=== PATIENT | male | born 1935 | race Caucasian/White ===

== ENCOUNTER 2016-09-03 16:59 | Inpatient (IN) | payer MEDICARE ==
[~2016-09-03] VITALS: Ht 167.6 cm; Wt 59.0 kg
--- NOTE | 2016-09-03 17:30 | EKG ---
[address] [address] Test Date: 2016-09-03 Test Time: 17:11:59 Pat Name: CARMEN MATTHEWS Department: Room: Gender: M Certified Coder: LUIS : 1935 Requested By: CRISTY HEDRICK Order Number: [id number] Reading MD: Measurements Intervals [place] Rate: 62 P: [place]: QRS: 45 QRSD: 86 T: 46 QT: 418 QTc: 427 Interpretive Statements IRREGULAR RHYTHM, NO P-WAVE FOUND QRS(T) CONTOUR ABNORMALITY CONSIDER INFERIOR MYOCARDIAL DAMAGE POSSIBLY ABNORMAL ECG RI6.01 Unconfirmed report No previous ECG available for comparison
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
[2016-09-03 17:37] LABS: AMORPHOUS SEDIMENT,UR PRESENT /HPF; BACTERIA,URINE MOD /HPF (0-FEW); BILIRUBIN,URINE NEG (NEG); CLARITY,URINE CLOUDY; COLOR,URINE YELLOW; GLUCOSE,URINE NEG (NEG); NITRITE,URINE POS (NEG); RBC,URINE OCC /HPF (0-2); SQUAMOUS EPITHELIAL CELL,UR OCC /LPF; UROBILINOGEN,URINE 2 mg/dL (0.2 mg/dL)
[2016-09-03 17:46] LABS: BASO # 0.1 x10^3/uL (0.0-0.2); BASO % 1 % (0-3); EOS # 0.9 x10^3/uL (0.0-0.7); EOS % 16 % (0-3); HEMATOCRIT 38.1 % (39.0-53.0); HEMOGLOBIN 12.4 g/dL (13.0-17.5); LYMPH # 1.5 x10^3/uL (1.0-4.8); LYMPH % 26 % (24-48); MEAN CORPUSCULAR HEMOGLOBIN 30 pg (25-35); MEAN CORPUSCULAR HGB CONC 33 g/dL (31-37); MEAN CORPUSCULAR VOLUME 93 fL (79-100); MONO # 0.4 x10^3/uL (0.0-1.1); MONO % 6 % (0-9); NEUT # 2.9 x10^3uL (1.8-7.7); NEUT % 51 % (31-73); PLATELET COUNT 96 x10^3/uL (140-400); RED BLOOD COUNT 4.09 x10^6/uL (4.30-5.70); RED CELL DISTRIBUTION WIDTH 15.4 % (11.5-14.5); WHITE BLOOD COUNT 5.8 x10^3/uL (4.0-11.0)
[2016-09-03 17:59] LABS: ALBUMIN 3.1 g/dL (3.4-5.0); ALBUMIN/GLOBULIN RATIO 0.7 (1.0-1.7); CALCIUM 9.2 mg/dL (8.5-10.1); CREATININE 1.3 mg/dL (0.7-1.3); GFR 53.3; MAGNESIUM 1.5 mg/dL (1.8-2.4); POTASSIUM 3.8 mmol/L (3.5-5.1); TOTAL BILIRUBIN 0.4 mg/dL (0.2-1.0); TOTAL PROTEIN 7.4 g/dL (6.4-8.2)
[2016-09-03] MEDS ORDERED: ACETAMINOPHEN 325 MG TABLET PO PRN ×2 (18:30→20:15)
[2016-09-03] MEDS ORDERED: MAGNESIUM CHLORIDE ER 64 MG TABLET.ER PO ONE (18:30)
[2016-09-03] MEDS ORDERED: CIPROFLOXACIN HCL 500 MG TABLET PO ONE (18:45)
[2016-09-03] MEDS ORDERED: POLY119P4 PO (19:23)
[2016-09-03] MEDS ORDERED: MULT1TAB52 PO (19:26)
[2016-09-03] MEDS ORDERED: CHOL10003 PO (19:26)
[2016-09-03] MEDS ORDERED: MEMA10TA PO (19:27)
[2016-09-03] MEDS ORDERED: QUET50TA5 PO (19:27)
[2016-09-03] MEDS ORDERED: LORA0.5T PO (19:28)
[2016-09-03] MEDS ORDERED: RANI150T2 PO (19:28)
[2016-09-03] MEDS ORDERED: DONE10TA34 PO (19:30)
[2016-09-03] MEDS ORDERED: VENL37.56 PO (19:30)
[2016-09-03] MEDS ORDERED: LEVO25TA4 PO (19:30)
[2016-09-03] MEDS ORDERED: ACET325T9 PO (19:31)
[2016-09-03] MEDS ORDERED: MAG HYDROX/AL HYDROX/SIMETH 30 ML ORAL.SUSP PO PRN (19:45)
[2016-09-03] MEDS ORDERED: METHYL SALICYLATE/MENTHOL TOPICAL OINTMENT 29GM TUBE. TP PRN (19:45)
[2016-09-03] MEDS ORDERED: MAGNESIUM HYDROXIDE 2,400 MG/30 ML ORAL.SUSP. PO PRN (19:45)
[2016-09-03 19:54] VITALS: BP 136/77
[2016-09-03] MEDS: FAMOTIDINE 20 MG TABLET PO SCH (20:32)
[2016-09-03] MEDS: MEMANTINE 10 MG TABLET. PO SCH (20:32)
[2016-09-03] MEDS: LORAZEPAM 0.5 MG TABLET PO SCH (20:33)
[2016-09-03] MEDS: QUEtiapine 50 MG TABLET. PO SCH (20:33)
--- NOTE | 2016-09-03 20:50 | PDOC ---
Exam West Demential Exam: West Note: Please also refer to the separate dictated note~for this date of service dictated separately.~Patient seen individually. Discussed the patient with Nursing staff reviewed the chart.~Reviewed interim history and current functioning. Reviewed vital signs,~Labs/ Radiology~and current medications noted below. Continue current treatment with the changes noted in the dictated addendum note Assessment: Vital Signs: Vital Signs Date Time Temp Pulse Resp B/P Pulse Ox O2 Delivery O2 Flow Rate FiO2 09/03/16 19:54 98.0 61 16 136/77 98 09/03/16 18:37 Room Air Labs: Laboratory Tests Test 09/03/16 17:17 09/03/16 17:26 Urine Collection Type Unknown Urine Color Yellow Urine Clarity Cloudy Urine pH 7.0 Urine Specific [place] 1.020 Urine Protein 30 mg/dl (NEG-TRACE) Urine Glucose (UA) Negmg/dL (NEG) Urine Ketones (Stick) Negmg/dL (NEG) Urine Blood Small (NEG) Urine Nitrite Pos (NEG) Urine Bilirubin Neg (NEG) Urine Urobilinogen Dipstick 2mg/dL (0.2 mg/dL) Urine Leukocyte Esterase Large (NEG) Urine RBC Occ/HPF (0-2) Urine WBC 11-20/HPF (0-4) Urine Squamous Epithelial Cells Occ/LPF Urine Amorphous Sediment Present/HPF Urine Bacteria Mod/HPF (0-FEW) Urine Mucus Slight/LPF White Blood Count 5.8x10^3/uL (4.0-11.0) Red Blood Count 4.09x10^6/uL (4.30-5.70) L Hemoglobin 12.4g/dL (13.0-17.5) L Hematocrit 38.1% (39.0-53.0) L Mean Corpuscular Volume 93fL (79-100) Mean Corpuscular Hemoglobin 30pg (25-35) Mean Corpuscular Hemoglobin Concent 33g/dL (31-37) Red Cell Distribution Width 15.4% (11.5-14.5) H Platelet Count 96x10^3/uL (140-400) L Neutrophils (%) (Auto) 51% (31-73) Lymphocytes (%) (Auto) 26% (24-48) Monocytes (%) (Auto) 6% (0-9) Eosinophils (%) (Auto) 16% (0-3) H Basophils (%) (Auto) 1% (0-3) Neutrophils # (Auto) 2.9x10^3uL (1.8-7.7) Lymphocytes # (Auto) 1.5x10^3/uL (1.0-4.8) Monocytes # (Auto) 0.4x10^3/uL (0.0-1.1) Eosinophils # (Auto) 0.9x10^3/uL (0.0-0.7) H Basophils # (Auto) 0.1x10^3/uL (0.0-0.2) Sodium Level 145mmol/L (136-145) Potassium Level 3.8mmol/L (3.5-5.1) Chloride Level 107mmol/L (98-107) Carbon Dioxide Level 30mmol/L (21-32) Anion Gap 8 (6-14) Blood Urea Nitrogen 18mg/dL (8-26) Creatinine 1.3mg/dL (0.7-1.3) Estimated GFR (Cockcroft-Gault) 53.3 BUN/Creatinine Ratio 14 (6-20) Glucose Level 90mg/dL (70-99) Calcium Level 9.2mg/dL (8.5-10.1) Magnesium Level 1.5mg/dL (1.8-2.4) L Total Bilirubin 0.4mg/dL (0.2-1.0) Aspartate Amino Transferase (AST) 27U/L (15-37) Alanine Aminotransferase (ALT) 31U/L (16-63) Alkaline Phosphatase 157U/L (46-116) H Total Protein 7.4g/dL (6.4-8.2) Albumin 3.1g/dL (3.4-5.0) L Albumin/Globulin Ratio 0.7 (1.0-1.7) L Current Medications: Meds: Current Medications Ciprofloxacin (Cipro) 500 mg BID66 PO ; Start 09/04/16 at 06:00 Ciprofloxacin (Cipro) 500 mg 1X ONCE PO Last administered on 09/03/16 18:38; Start 09/03/16 at 18:45; Stop 09/03/16 at 18:46; Status DC Magnesium Chloride (Mag Delay) 64 mg 1X ONCE PO Last administered on 18:38; Start 09/03/16 at 18:30; Stop 09/03/16 at 18:31; Status DC Acetaminophen (Tylenol) 650 mg PRN Q6HRS PRN PO PAIN / TEMP; Start 09/03/16 at 18:30 Multi-Ingredient Ointment (Analgesic Needles) 1 rosanna PRN QID PRN TP MUSCLE PAIN; Start 09/03/16 at 19:45 Al Hydroxide/Mg Hydroxide (Mylanta Plus Xs) 15 ml PRN AFTMEALHC PRN PO DYSPEPSIA; Start 09/03/16 at 19:45 Magnesium Hydroxide (Milk Of Magnesia) 2,400 mg PRN QHS PRN PO CONSTIPATION; Start 09/03/16 at 19:45 Donepezil HCl (Aricept) 10 mg DAILY PO ; Start 09/04/16 at 09:00 Lorazepam (Ativan) 0.5 mg QID PO Last administered on 09/03/16 20:33; Start at 21:00 Memantine (Namenda) 10 mg BID PO Last administered on 09/03/16 20:32; Start at 21:00 Quetiapine Fumarate (SEROquel) 50 mg BID PO Last administered on 09/03/16 20: 33; Start 09/03/16 at 21:00 Venlafaxine HCl (Effexor) 37.5 mg DAILY PO ; Start 09/04/16 at 09:00 Acetaminophen (Tylenol) 650 mg PRN Q4HRS PRN PO PAIN / TEMP; Start 09/03/16 at 20:15 Vitamin D (Vitamin D3) 2,000 unit DAILY PO ; Start 09/04/16 at 09:00 Levothyroxine Sodium (Synthroid) 25 mcg DAILY06 PO ; Start 09/04/16 at 06:00 Polyethylene Glycol (miraLAX) 17 gm PRN DAILY PRN PO CONSTIPATION; Start at 21:00 Multivitamins/ Calcium (Thera-M Plus) 1 tab DAILY PO ; Start 09/04/16 at 09:00 Famotidine (Pepcid) 20 mg Q24H PO Last administered on 09/03/16 20:32; Start 09/03/16 at 21:00 Magnesium Chloride (Mag Delay) 64 mg DAILY PO ; Start 09/04/16 at 09:00 Active Scripts Active Reported Tylenol (Acetaminophen) 325 Mg Tablet 650 Mg PO PRN Q4HRS PRN Levothyroxine Sodium 25 Mcg Tablet 25 Mcg PO DAILY06 Venlafaxine Hcl 37.5 Mg Tablet 37.5 Mg PO DAILY Aricept (Donepezil Hcl) 10 Mg Tablet 10 Mg PO DAILY Lorazepam 0.5 Mg Tablet 0.5 Mg PO QID Ranitidine Hcl 150 Mg Tablet 150 Mg PO BID Seroquel (Quetiapine Fumarate) 50 Mg Tablet 50 Mg PO BID Namenda (Memantine Hcl) 10 Mg Tablet 10 Mg PO BID Vitamin D3 (Cholecalciferol (Vitamin D3)) 1,000 Unit Tablet 1,000 Unit PO DAILY Multivitamins (Multivitamin) 1 Each Tablet 1 Tab PO DAILY Miralax (Polyethylene Glycol 3350) 119 Gm Powder 17 Gm PO PRN DAILY PRN Diagnosis: Problems: (1) Dementia with behavioral disturbance (2) Medical clearance for psychiatric admission PRISCILA GUEVARA MD Sep 03, 2016 20:49
[2016-09-03] MEDS ORDERED: POLYETHYLENE GLYCOL 3350 17 GM PACKET. PO PRN (21:00)
[2016-09-04] MEDS: LEVOTHYROXINE 25 MCG TABLET. PO SCH (05:14)
[2016-09-04] MEDS: CIPROFLOXACIN HCL 500 MG TABLET PO SCH ×2 (05:14→16:49)
[2016-09-04 06:07] VITALS: BP 113/76
[2016-09-04] MEDS: MEMANTINE 10 MG TABLET. PO SCH ×2 (08:09→19:42)
[2016-09-04] MEDS: QUEtiapine 50 MG TABLET. PO SCH ×2 (08:09→19:42)
[2016-09-04] MEDS: MULTIVITAMIN with MINERAL TABLET. PO SCH (08:11)
[2016-09-04] MEDS: DONEPEZIL HCL 10 MG TABLET PO SCH (08:11)
[2016-09-04] MEDS: CHOLECALCIFEROL (VITAMIN D3) 1,000 UNIT TABLET PO SCH (08:11)
[2016-09-04] MEDS: LORAZEPAM 0.5 MG TABLET PO SCH ×4 (08:11→19:42)
[2016-09-04] MEDS: MAGNESIUM CHLORIDE ER 64 MG TABLET.ER PO SCH (08:14)
[2016-09-04] MEDS: VENLAFAXINE 37.5 MG TABLET. PO SCH (08:14)
[2016-09-04 10:59] LABS: IRON,SERUM 56 ug/dL (65-175)
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
[2016-09-04 15:10] LABS: T3 TOTAL 79 ng/dL (71-180); THYROXINE 4.5 ug/dL (4.5-12.0)
[2016-09-04 15:59] VITALS: BP 127/82
[2016-09-04 16:14] VITALS: BP 100/48
[2016-09-04] MEDS: FAMOTIDINE 20 MG TABLET PO SCH (19:42)
[2016-09-04 21:07] LABS: HEMOGLOBIN A1C 4.7 % (4.8-5.6)
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
--- NOTE | 2016-09-04 22:30 | PDOC ---
Exam West Demential Exam: West Note: Please also refer to the separate dictated note~for this date of service dictated separately.~Patient seen individually. Discussed the patient with Nursing staff reviewed the chart.~Reviewed interim history and current functioning. Reviewed vital signs,~Labs/ Radiology~and current medications noted below. Continue current treatment with the changes noted in the dictated addendum note Assessment: Vital Signs: Vital Signs Date Time Temp Pulse Resp B/P Pulse Ox O2 Delivery O2 Flow Rate FiO2 09/04/16 16:14 98.5 67 18 100/48 96 09/03/16 18:37 Room Air I&O Intake and Output 09/04/16 07:00 Intake Total 120 ml Balance 120 ml Intake Oral 120 ml Current Medications: Meds: Current Medications Ciprofloxacin (Cipro) 500 mg BID66 PO Last administered on 09/04/16 16:49; Start 09/04/16 at 06:00 Ciprofloxacin (Cipro) 500 mg 1X ONCE PO Last administered on 09/03/16 18:38; Start 09/03/16 at 18:45; Stop 09/03/16 at 18:46; Status DC Magnesium Chloride (Mag Delay) 64 mg 1X ONCE PO Last administered on 18:38; Start 09/03/16 at 18:30; Stop 09/03/16 at 18:31; Status DC Acetaminophen (Tylenol) 650 mg PRN Q6HRS PRN PO PAIN / TEMP; Start 09/03/16 at 18:30; Stop 09/04/16 at 07:06; Status DC Multi-Ingredient Ointment (Analgesic [place]) 1 rosanna PRN QID PRN TP MUSCLE PAIN; Start 09/03/16 at 19:45 Al Hydroxide/Mg Hydroxide (Mylanta Plus Xs) 15 ml PRN AFTMEALHC PRN PO DYSPEPSIA; Start 09/03/16 at 19:45 Magnesium Hydroxide (Milk Of Magnesia) 2,400 mg PRN QHS PRN PO CONSTIPATION; Start 09/03/16 at 19:45 Donepezil HCl (Aricept) 10 mg DAILY PO Last administered on 09/04/16 08:11; Start 09/04/16 at 09:00 Lorazepam (Ativan) 0.5 mg QID PO Last administered on 09/04/16 19:42; Start at 21:00 Memantine (Namenda) 10 mg BID PO Last administered on 09/04/16 19:42; Start at 21:00 Quetiapine Fumarate (SEROquel) 50 mg BID PO Last administered on 09/04/16 19: 42; Start 09/03/16 at 21:00 Venlafaxine HCl (Effexor) 37.5 mg DAILY PO Last administered on 09/04/16 08:14 ; Start 09/04/16 at 09:00 Acetaminophen (Tylenol) 650 mg PRN Q4HRS PRN PO PAIN / TEMP; Start 09/03/16 at 20:15 Vitamin D (Vitamin D3) 2,000 unit DAILY PO Last administered on 09/04/16 08:11 ; Start 09/04/16 at 09:00 Levothyroxine Sodium (Synthroid) 25 mcg DAILY06 PO Last administered on 05:14; Start 09/04/16 at 06:00 Polyethylene Glycol (miraLAX) 17 gm PRN DAILY PRN PO CONSTIPATION; Start at 21:00 Multivitamins/ Calcium (Thera-M Plus) 1 tab DAILY PO Last administered on 08:11; Start 09/04/16 at 09:00 Famotidine (Pepcid) 20 mg Q24H PO Last administered on 09/04/16 19:42; Start 09/03/16 at 21:00 Magnesium Chloride (Mag Delay) 64 mg DAILY PO Last administered on 09/04/16 08 :14; Start 09/04/16 at 09:00 Active Scripts Active Reported Tylenol (Acetaminophen) 325 Mg Tablet 650 Mg PO PRN Q4HRS PRN Levothyroxine Sodium 25 Mcg Tablet 25 Mcg PO DAILY06 Venlafaxine Hcl 37.5 Mg Tablet 37.5 Mg PO DAILY Aricept (Donepezil Hcl) 10 Mg Tablet 10 Mg PO DAILY Lorazepam 0.5 Mg Tablet 0.5 Mg PO QID Ranitidine Hcl 150 Mg Tablet 150 Mg PO BID Seroquel (Quetiapine Fumarate) 50 Mg Tablet 50 Mg PO BID Namenda (Memantine Hcl) 10 Mg Tablet 10 Mg PO BID Vitamin D3 (Cholecalciferol (Vitamin D3)) 1,000 Unit Tablet 1,000 Unit PO DAILY Multivitamins (Multivitamin) 1 Each Tablet 1 Tab PO DAILY Miralax (Polyethylene Glycol 3350) 119 Gm Powder 17 Gm PO PRN DAILY PRN Diagnosis: Problems: (1) Dementia with behavioral disturbance PRISCILA GUEVARA MD Sep 04, 2016 22:30
[2016-09-05 05:57] VITALS: BP 117/70
[2016-09-05] MEDS: LEVOTHYROXINE 25 MCG TABLET. PO SCH (05:58)
[2016-09-05] MEDS: CIPROFLOXACIN HCL 500 MG TABLET PO SCH (05:58)
[2016-09-05] MEDS: VENLAFAXINE 37.5 MG TABLET. PO SCH (07:40)
[2016-09-05] MEDS: QUEtiapine 50 MG TABLET. PO SCH ×2 (07:40→19:20)
[2016-09-05] MEDS: MAGNESIUM CHLORIDE ER 64 MG TABLET.ER PO SCH (07:40)
[2016-09-05] MEDS: DONEPEZIL HCL 10 MG TABLET PO SCH (07:40)
[2016-09-05] MEDS: CHOLECALCIFEROL (VITAMIN D3) 1,000 UNIT TABLET PO SCH (07:40)
[2016-09-05] MEDS: MULTIVITAMIN with MINERAL TABLET. PO SCH (07:40)
[2016-09-05] MEDS: MEMANTINE 10 MG TABLET. PO SCH ×2 (07:40→19:20)
[2016-09-05] MEDS: LORAZEPAM 0.5 MG TABLET PO SCH ×4 (07:42→19:20)
[2016-09-05 15:50] VITALS: BP 98/64
[2016-09-05] MEDS: FAMOTIDINE 20 MG TABLET PO SCH (19:21)
[2016-09-05] MEDS: CEPHALEXIN 500 MG CAPSULE PO SCH (20:23)
--- NOTE | 2016-09-05 20:50 | PDOC ---
Exam West Demential Exam: West Note: Please also refer to the separate dictated note~for this date of service dictated separately.~Patient seen individually. Discussed the patient with Nursing staff reviewed the chart.~Reviewed interim history and current functioning. Reviewed vital signs,~Labs/ Radiology~and current medications noted below. Continue current treatment with the changes noted in the dictated addendum note Assessment: Vital Signs: Vital Signs Date Time Temp Pulse Resp B/P Pulse Ox O2 Delivery O2 Flow Rate FiO2 09/05/16 15:50 98.1 78 18 98/64 96 09/03/16 18:37 Room Air I&O Intake and Output 09/05/16 07:00 Intake Total 1200 ml Balance 1200 ml Intake Oral 1200 ml Current Medications: Meds: Current Medications Ciprofloxacin (Cipro) 500 mg BID66 PO Last administered on 09/05/16 05:58; Start 09/04/16 at 06:00; Stop 09/05/16 at 13:14; Status DC Ciprofloxacin (Cipro) 500 mg 1X ONCE PO Last administered on 09/03/16 18:38; Start 09/03/16 at 18:45; Stop 09/03/16 at 18:46; Status DC Magnesium Chloride (Mag Delay) 64 mg 1X ONCE PO Last administered on 18:38; Start 09/03/16 at 18:30; Stop 09/03/16 at 18:31; Status DC Acetaminophen (Tylenol) 650 mg PRN Q6HRS PRN PO PAIN / TEMP; Start 09/03/16 at 18:30; Stop 09/04/16 at 07:06; Status DC Multi-Ingredient Ointment (Analgesic [place]) 1 rosanna PRN QID PRN TP MUSCLE PAIN; Start 09/03/16 at 19:45 Al Hydroxide/Mg Hydroxide (Mylanta Plus Xs) 15 ml PRN AFTMEALHC PRN PO DYSPEPSIA; Start 09/03/16 at 19:45 Magnesium Hydroxide (Milk Of Magnesia) 2,400 mg PRN QHS PRN PO CONSTIPATION; Start 09/03/16 at 19:45 Donepezil HCl (Aricept) 10 mg DAILY PO Last administered on 09/05/16 07:40; Start 09/04/16 at 09:00 Lorazepam (Ativan) 0.5 mg QID PO Last administered on 09/05/16 19:20; Start at 21:00 Memantine (Namenda) 10 mg BID PO Last administered on 09/05/16 19:20; Start at 21:00 Quetiapine Fumarate (SEROquel) 50 mg BID PO Last administered on 09/05/16 19: 20; Start 09/03/16 at 21:00 Venlafaxine HCl (Effexor) 37.5 mg DAILY PO Last administered on 09/05/16 07:40 ; Start 09/04/16 at 09:00 Acetaminophen (Tylenol) 650 mg PRN Q4HRS PRN PO PAIN / TEMP; Start 09/03/16 at 20:15 Vitamin D (Vitamin D3) 2,000 unit DAILY PO Last administered on 09/05/16 07:40 ; Start 09/04/16 at 09:00 Levothyroxine Sodium (Synthroid) 25 mcg DAILY06 PO Last administered on 05:58; Start 09/04/16 at 06:00 Polyethylene Glycol (miraLAX) 17 gm PRN DAILY PRN PO CONSTIPATION; Start at 21:00 Multivitamins/ Calcium (Thera-M Plus) 1 tab DAILY PO Last administered on 07:40; Start 09/04/16 at 09:00 Famotidine (Pepcid) 20 mg Q24H PO Last administered on 09/05/16 19:21; Start 09/03/16 at 21:00 Magnesium Chloride (Mag Delay) 64 mg DAILY PO Last administered on 09/05/16 07 :40; Start 09/04/16 at 09:00 Cephalexin HCl (Keflex) 500 mg BID PO Last administered on 09/05/16 20:23; Start 09/05/16 at 21:00; Stop 09/08/16 at 14:01 Active Scripts Active Reported Tylenol (Acetaminophen) 325 Mg Tablet 650 Mg PO PRN Q4HRS PRN Levothyroxine Sodium 25 Mcg Tablet 25 Mcg PO DAILY06 Venlafaxine Hcl 37.5 Mg Tablet 37.5 Mg PO DAILY Aricept (Donepezil Hcl) 10 Mg Tablet 10 Mg PO DAILY Lorazepam 0.5 Mg Tablet 0.5 Mg PO QID Ranitidine Hcl 150 Mg Tablet 150 Mg PO BID Seroquel (Quetiapine Fumarate) 50 Mg Tablet 50 Mg PO BID Namenda (Memantine Hcl) 10 Mg Tablet 10 Mg PO BID Vitamin D3 (Cholecalciferol (Vitamin D3)) 1,000 Unit Tablet 1,000 Unit PO DAILY Multivitamins (Multivitamin) 1 Each Tablet 1 Tab PO DAILY Miralax (Polyethylene Glycol 3350) 119 Gm Powder 17 Gm PO PRN DAILY PRN Diagnosis: Problems: (1) UTI (urinary tract infection) (2) Dementia with behavioral disturbance (3) Medical clearance for psychiatric admission PRISCILA GUEVARA MD Sep 05, 2016 20:49
[2016-09-06] MEDS: LEVOTHYROXINE 25 MCG TABLET. PO SCH (05:40)
[2016-09-06 06:11] VITALS: BP 91/56
[2016-09-06] MEDS: MEMANTINE 10 MG TABLET. PO SCH ×2 (09:00→20:26)
[2016-09-06] MEDS: VENLAFAXINE 37.5 MG TABLET. PO SCH (09:01)
[2016-09-06] MEDS: CHOLECALCIFEROL (VITAMIN D3) 1,000 UNIT TABLET PO SCH (09:01)
[2016-09-06] MEDS: MAGNESIUM CHLORIDE ER 64 MG TABLET.ER PO SCH (09:01)
[2016-09-06] MEDS: DONEPEZIL HCL 10 MG TABLET PO SCH (09:01)
[2016-09-06] MEDS: LORAZEPAM 0.5 MG TABLET PO SCH ×4 (09:01→20:26)
[2016-09-06] MEDS: MULTIVITAMIN with MINERAL TABLET. PO SCH (09:01)
[2016-09-06] MEDS: QUEtiapine 50 MG TABLET. PO SCH ×2 (09:01→20:27)
[2016-09-06] MEDS: CEPHALEXIN 500 MG CAPSULE PO SCH ×2 (09:02→20:26)
[2016-09-06 16:08] VITALS: BP 113/63
[2016-09-06] MEDS: FAMOTIDINE 20 MG TABLET PO SCH (20:26)
[2016-09-06] MEDS: DOXYCYCLINE HYCLATE 100 MG TABLET PO SCH (20:27)
--- NOTE | 2016-09-06 20:50 | PDOC ---
Exam West Demential Exam: West Note: Please also refer to the separate dictated note~for this date of service dictated separately.~Patient seen individually. Discussed the patient with Nursing staff reviewed the chart.~Reviewed interim history and current functioning. Reviewed vital signs,~Labs/ Radiology~and current medications noted below. Continue current treatment with the changes noted in the dictated addendum note Assessment: Vital Signs: Vital Signs Date Time Temp Pulse Resp B/P Pulse Ox O2 Delivery O2 Flow Rate FiO2 09/06/16 16:08 98.3 76 18 113/63 97 09/03/16 18:37 Room Air I&O Intake and Output 09/06/16 07:00 Intake Total 960 ml Balance 960 ml Intake Oral 960 ml Current Medications: Meds: Current Medications Ciprofloxacin (Cipro) 500 mg BID66 PO Last administered on 09/05/16 05:58; Start 09/04/16 at 06:00; Stop 09/05/16 at 13:14; Status DC Ciprofloxacin (Cipro) 500 mg 1X ONCE PO Last administered on 09/03/16 18:38; Start 09/03/16 at 18:45; Stop 09/03/16 at 18:46; Status DC Magnesium Chloride (Mag Delay) 64 mg 1X ONCE PO Last administered on 18:38; Start 09/03/16 at 18:30; Stop 09/03/16 at 18:31; Status DC Acetaminophen (Tylenol) 650 mg PRN Q6HRS PRN PO PAIN / TEMP; Start 09/03/16 at 18:30; Stop 09/04/16 at 07:06; Status DC Multi-Ingredient Ointment (Analgesic [place]) 1 rosanna PRN QID PRN TP MUSCLE PAIN; Start 09/03/16 at 19:45 Al Hydroxide/Mg Hydroxide (Mylanta Plus Xs) 15 ml PRN AFTMEALHC PRN PO DYSPEPSIA; Start 09/03/16 at 19:45 Magnesium Hydroxide (Milk Of Magnesia) 2,400 mg PRN QHS PRN PO CONSTIPATION; Start 09/03/16 at 19:45 Donepezil HCl (Aricept) 10 mg DAILY PO Last administered on 09/06/16 09:01; Start 09/04/16 at 09:00 Lorazepam (Ativan) 0.5 mg QID PO Last administered on 09/06/16 16:22; Start at 21:00; Stop 09/06/16 at 18:35; Status DC Memantine (Namenda) 10 mg BID PO Last administered on 09/06/16 20:26; Start at 21:00 Quetiapine Fumarate (SEROquel) 50 mg BID PO Last administered on 09/06/16 20: 27; Start 09/03/16 at 21:00 Venlafaxine HCl (Effexor) 37.5 mg DAILY PO Last administered on 09/06/16 09:01 ; Start 09/04/16 at 09:00 Acetaminophen (Tylenol) 650 mg PRN Q4HRS PRN PO PAIN / TEMP; Start 09/03/16 at 20:15 Vitamin D (Vitamin D3) 2,000 unit DAILY PO Last administered on 09/06/16 09:01 ; Start 09/04/16 at 09:00 Levothyroxine Sodium (Synthroid) 25 mcg DAILY06 PO Last administered on 05:40; Start 09/04/16 at 06:00 Polyethylene Glycol (miraLAX) 17 gm PRN DAILY PRN PO CONSTIPATION; Start at 21:00 Multivitamins/ Calcium (Thera-M Plus) 1 tab DAILY PO Last administered on 09:01; Start 09/04/16 at 09:00 Famotidine (Pepcid) 20 mg Q24H PO Last administered on 09/06/16 20:26; Start 09/03/16 at 21:00 Magnesium Chloride (Mag Delay) 64 mg DAILY PO Last administered on 09/06/16 09 :01; Start 09/04/16 at 09:00 Cephalexin HCl (Keflex) 500 mg BID PO Last administered on 09/06/16 20:26; Start 09/05/16 at 21:00; Stop 09/08/16 at 14:01 Doxycycline Hyclate (Vibra-Tab) 100 mg BID PO Last administered on 09/06/16 20 :27; Start 09/06/16 at 21:00 Medroxyprogesterone Acetate (Provera) 5 mg DAILY PO ; Start 09/07/16 at 09:00 Lorazepam (Ativan) 0.5 mg TID PO Last administered on 09/06/16t 20:26; Start at 21:00 Active Scripts Active Reported Tylenol (Acetaminophen) 325 Mg Tablet 650 Mg PO PRN Q4HRS PRN Levothyroxine Sodium 25 Mcg Tablet 25 Mcg PO DAILY06 Venlafaxine Hcl 37.5 Mg Tablet 37.5 Mg PO DAILY Aricept (Donepezil Hcl) 10 Mg Tablet 10 Mg PO DAILY Lorazepam 0.5 Mg Tablet 0.5 Mg PO QID Ranitidine Hcl 150 Mg Tablet 150 Mg PO BID Seroquel (Quetiapine Fumarate) 50 Mg Tablet 50 Mg PO BID Namenda (Memantine Hcl) 10 Mg Tablet 10 Mg PO BID Vitamin D3 (Cholecalciferol (Vitamin D3)) 1,000 Unit Tablet 1,000 Unit PO DAILY Multivitamins (Multivitamin) 1 Each Tablet 1 Tab PO DAILY Miralax (Polyethylene Glycol 3350) 119 Gm Powder 17 Gm PO PRN DAILY PRN Diagnosis: Problems: (1) UTI (urinary tract infection) (2) Dementia with behavioral disturbance (3) Medical clearance for psychiatric admission PRISCILA GUEVARA MD Sep 06, 2016 20:49
--- NOTE | 2016-09-06 22:23 | PN ---
DATE: 09/05/2016 This is a late entry for 09/05/2016, which covers the elements not covered in my initial note of 09/05/2016. SUBJECTIVE: Per nursing report, the patient has been pleasant, compliant, withdrawn, confused. He is on Keflex for his UTI. As I met with him in his room, he stated "if you have an extra woman, send her to me." He seems to be somewhat disinhibited late in the evening as I met with him. REVIEW OF SYSTEMS: No CV, , pulmonary, eye, ENT system symptoms on review. Reliability poor. MENTAL STATUS EXAM: Oriented to himself. Insight, judgment, recent and remote memory, attention, concentration, fund of knowledge poor, consistent with his diagnosis mentioned in my initial note. Major neurocognitive disorder, Alzheimer, vascular with depression, delusion, behavioral disturbance, urinary tract infection; anxiety disorder, unspecified; impulse control disorder, unspecified. PLAN: Continue psychotropics mentioned in my initial note. We may need to increase Seroquel or add Depakote or BuSpar depending on his progress after the UTI resolves. I have carefully reviewed drug interactions, risk and benefit ratio. MAN Laina GUEVARA MD DR: WALESKA/rebecca JOB#: [id number] / [id number]
[2016-09-07 02:07] LABS: RPR REFLEX Non Reactive (Non Reactive)
--- NOTE | 2016-09-07 04:20 | ACF ---
Admission Criteria Forms [facility] Clinical Indications for Admission to Inpatient Care (Place 'X' for any and all applicable criteria): Hospital admission is needed for appropriate care of the patient because of ANY ONE of the following[A] (3)(4)(5): [ ]I. Inpatient behavioral care is needed as indicated by ALL of the following: [ ]a) Treatment is needed because of patient risk due to ANY ONE of the following: [ ]i) Imminent danger to self due to ANY ONE of the following ( 7)(8): [ ]1) Imminent risk for recurrence of a suicide attempt or act of serious self-harm as indicated by ALL of the following: [ ]A. Very recent suicide attempt or deliberate act of serious self-harm [ ]B. Absence of sufficient relief of the action' s precipitants [ ]2) Current plan for suicide or serious self-harm [ ]3) Persistent thoughts of suicide or serious self- harm that cannot be adequately monitored at a lower level of care because of ANY ONE of the following: [ ]A. Insufficient behavioral care provider availability [ ]B. Inadequate patient support system [ ]C. Patient characteristics such as high impulsivity or unreliability [ ]D. Ruminative flooding; uncontrollable and overwhelming profusion of negative thoughts [ ]E. Frantic hopelessness; fatalistic conviction that life will not improve along with oppressive sense of entrapment and doom [ ]F. Active substance use disorder is present [ ]G. Ready access to lethal means is present [ ]ii) Imminent danger to others due to ANY ONE of the following( 10)(11): [ ]1) Imminent risk for recurrence of an attempt to seriously harm another as indicated by ALL of the following: [ ]A. Very recent attempt to seriously harm another [ ]B. Absence of sufficient relief of the action' s precipitants [ ]2) Current plan for homicide or seriously harming another [ ]3) Command auditory hallucination for serious self harm to self or others [ ]4) Persistent thoughts of homicide or seriously harming another that cannot be adequately monitored at a lower level of care because of ANY ONE of the following: [ ]A. Insufficient behavioral care provider availability [ ]B. Inadequate patient support system [ ]C. Patient characteristics such as high impulsivity or unreliability [ ]D. Active substance use disorder is present [ ]E. Ready access to lethal means is present [ ]iii) Behavioral health disorder is present with ALL of the following: (12)(16)(17)(18): [ ]1) Severe psychiatric or behavioral symptoms are present , including ANY ONE of the following: [ ]A. Hallucinations that are very bothersome to patient or are associated with severe pressure to respond to voices(17)(18) [ ]B. Delusions that are very bothersome to patient or are associated with severe pressure to act on beliefs(17)(18) [ ]C. Disorganized speech that is almost impossible to follow(17)(18) [ ]D. Motor behavior that is almost constantly abnormal or bizarre or catatonic(17)(18) [ ]E. Severe negative symptoms (eg, severe decrease in facial expression or self-initiated behavior)(17)(18) [ ]F. Severe darion (eg, daily periods of extensive mood elevation or irritability)(19)(20)(21)(22) [ ]G. Severe depression (eg, daily symptoms of deep hopelessness)[C] [ ]H. Severe anxiety[D] [ ]I. Severe comorbid substance use disorder with inability to control use, intense withdrawal symptoms, or extreme negative impact on primary psychiatric disorder(2)(7)(25) [ ]J. Severe impairment in cognition, memory, judgment, or impulse control(26)(27) [ ]K. Severe impairment in behavior, including physical or verbal aggression, disruptive behaviors, or internal or external anger manifestations (eg, rumination or outbursts)(28) [ ]L. Other psychiatric symptoms which are acute or represent worsening over baseline (eg, hyperactivity, agitation, obsessions, or compulsions)(29)(30)(31) [ ]2) Severe dysfunction in daily living is present as indicated by ANY ONE of the following: [ ]A. Extreme deterioration in social interactions ( eg, threatening behaviors with little or no provocation) [ ]B. Complete withdrawal from all social interactions [ ]C. Complete neglect of self-care with associated impairment in physical status [ ]D. Extreme disruption in vegetative function (eg , life-sustaining functions such as eating) [ ]E. Complete inability to maintain any appropriate aspect of personal responsibility in any adult roles (eg, occupational, parental) [ ]b) Treatment situation and needs are appropriate for level as indicated by ANY ONE of the following(13)(16): [ ]i) Patient unwilling to participate voluntarily and requires treatment (eg, legal commitment) in an involuntary unit [ ]ii) Voluntary treatment at lower level not feasible (e.g., very short-term crisis intervention or residential care unavailable or unacceptable for patient condition) [ ]iii) Need for physical restraint, seclusion, or other involuntary control (e.g., actively violent patient and adequate clinical rapport cannot be established to control violence) (25) [ ]iv) [id number] medical or nursing care to address symptoms and initiate intervention is required; specific need has been identified [ ]II. Delirium as described by ANY ONE of the following (26)(27)(28): [ ]a) Delirium due to alcohol or sedative [B] withdrawal (16)(29)(30)( 31) [ ]b) Delirium of uncertain etiology that has not responded to appropriate treatment in emergency department or urgent care setting (32)(33) [ ]c) Delirium that prevents performance of a life-sustaining function (eg, feeding or hydrating oneself) (9) [ ]III. Administration of a somatic treatment that requires [id number] medical or nursing care because of a potential adverse physical effect or medical comorbidity(7) [X]IV. Behavioral Health condition, symptom, or finding for which emergency and observation care have failed or are not considered appropriate The original [facility] [employer] content created by [facility] has been revised. The portions of the content which have been revised are identified through the use of italic text or in bold, and [facility] has neither reviewed nor approved the modified material. All other unmodified content is copyright [facility]. Please see references footnoted in the original [facility] edition 2015 Admission Criteria Met?: Yes SAMM GARCIA Sep 07, 2016 04:20
[2016-09-07] MEDS: LEVOTHYROXINE 25 MCG TABLET. PO SCH (05:32)
[2016-09-07 06:13] VITALS: BP 96/58
[2016-09-07] MEDS: VENLAFAXINE 37.5 MG TABLET. PO SCH (09:53)
[2016-09-07] MEDS: CHOLECALCIFEROL (VITAMIN D3) 1,000 UNIT TABLET PO SCH (09:53)
[2016-09-07] MEDS: DONEPEZIL HCL 10 MG TABLET PO SCH (09:53)
[2016-09-07] MEDS: MAGNESIUM CHLORIDE ER 64 MG TABLET.ER PO SCH (09:53)
[2016-09-07] MEDS: QUEtiapine 50 MG TABLET. PO SCH ×2 (09:53→21:15)
[2016-09-07] MEDS: MULTIVITAMIN with MINERAL TABLET. PO SCH (09:53)
[2016-09-07] MEDS: MEMANTINE 10 MG TABLET. PO SCH ×2 (09:53→21:15)
[2016-09-07] MEDS: DOXYCYCLINE HYCLATE 100 MG TABLET PO SCH ×2 (09:53→21:14)
[2016-09-07] MEDS: LORAZEPAM 0.5 MG TABLET PO SCH ×3 (09:55→21:15)
[2016-09-07] MEDS: MEDROXYPROGESTERONE 5 MG PO SCH (09:55)
--- NOTE | 2016-09-07 14:05 | PN ---
DATE: 09/06/2016 SUBJECTIVE: This is a late entry for 09/06/2016, covers elements not covered in my initial note. Per nursing report, the patient has been sexually inappropriate making sexual comments and verbalizations to nursing staff and this has been quite persistent. As mentioned in my earlier note, he was making similar request to me to get him woman the previous night as well. REVIEW OF SYSTEMS: No CV, , eye, ENT, or pulmonary system symptoms on review as I met with him in his room. MENTAL STATUS EXAM: Oriented to himself. Insight, judgment, recent and remote memory, attention, concentration, fund of knowledge poor, consistent with his diagnosis mentioned in my initial note. PLAN: Start Provera 5 mg a day if approved by Dr. Fletcher from a medical standpoint. Reduce Ativan from 0.5 mg 4 times a day to 0.5 mg 3 times a day. Continue Effexor, Aricept, Seroquel, and Namenda at current dosage. Adjust further as clinically indicated. Consider Depakote as a mood stabilizer if needed and may need to increase Effexor or change to an SSRI. MAN Laina GUEVARA MD DR: WALESKA/rebecca JOB#: [id number] / [id number]
[2016-09-07 15:50] VITALS: BP 123/67
--- NOTE | 2016-09-07 21:02 | PDOC ---
Exam West Demential Exam: West Note: Please also refer to the separate dictated note~for this date of service dictated separately.~Patient seen individually. Discussed the patient with Nursing staff reviewed the chart.~Reviewed interim history and current functioning. Reviewed vital signs,~Labs/ Radiology~and current medications noted below. Continue current treatment with the changes noted in the dictated addendum note Assessment: Vital Signs: Vital Signs Date Time Temp Pulse Resp B/P Pulse Ox O2 Delivery O2 Flow Rate FiO2 09/07/16 15:50 97.8 84 18 123/67 97 09/07/16 06:13 Room Air 3.0 I&O Intake and Output 09/07/16 07:00 Intake Total 720 ml Balance 720 ml Intake Oral 720 ml # Bowel Movements 1 Current Medications: Meds: Current Medications Ciprofloxacin (Cipro) 500 mg BID66 PO Last administered on 09/05/16 05:58; Start 09/04/16 at 06:00; Stop 09/05/16 at 13:14; Status DC Ciprofloxacin (Cipro) 500 mg 1X ONCE PO Last administered on 09/03/16 18:38; Start 09/03/16 at 18:45; Stop 09/03/16 at 18:46; Status DC Magnesium Chloride (Mag Delay) 64 mg 1X ONCE PO Last administered on 18:38; Start 09/03/16 at 18:30; Stop 09/03/16 at 18:31; Status DC Acetaminophen (Tylenol) 650 mg PRN Q6HRS PRN PO PAIN / TEMP; Start 09/03/16 at 18:30; Stop 09/04/16 at 07:06; Status DC Multi-Ingredient Ointment (Analgesic [place]) 1 rosanna PRN QID PRN TP MUSCLE PAIN; Start 09/03/16 at 19:45 Al Hydroxide/Mg Hydroxide (Mylanta Plus Xs) 15 ml PRN AFTMEALHC PRN PO DYSPEPSIA; Start 09/03/16 at 19:45 Magnesium Hydroxide (Milk Of Magnesia) 2,400 mg PRN QHS PRN PO CONSTIPATION; Start 09/03/16 at 19:45 Donepezil HCl (Aricept) 10 mg DAILY PO Last administered on 09/07/16 09:53; Start 09/04/16 at 09:00 Lorazepam (Ativan) 0.5 mg QID PO Last administered on 09/06/16 16:22; Start at 21:00; Stop 09/06/16 at 18:35; Status DC Memantine (Namenda) 10 mg BID PO Last administered on 09/07/16 09:53; Start at 21:00 Quetiapine Fumarate (SEROquel) 50 mg BID PO Last administered on 09/07/16 09: 53; Start 09/03/16 at 21:00 Venlafaxine HCl (Effexor) 37.5 mg DAILY PO Last administered on 09/07/16 09:53 ; Start 09/04/16 at 09:00 Acetaminophen (Tylenol) 650 mg PRN Q4HRS PRN PO PAIN / TEMP; Start 09/03/16 at 20:15 Vitamin D (Vitamin D3) 2,000 unit DAILY PO Last administered on 09/07/16 09:53 ; Start 09/04/16 at 09:00 Levothyroxine Sodium (Synthroid) 25 mcg DAILY06 PO Last administered on 05:32; Start 09/04/16 at 06:00 Polyethylene Glycol (miraLAX) 17 gm PRN DAILY PRN PO CONSTIPATION; Start at 21:00 Multivitamins/ Calcium (Thera-M Plus) 1 tab DAILY PO Last administered on 09:53; Start 09/04/16 at 09:00 Famotidine (Pepcid) 20 mg Q24H PO Last administered on 09/06/16 20:26; Start 09/03/16 at 21:00 Magnesium Chloride (Mag Delay) 64 mg DAILY PO Last administered on 09/07/16 09 :53; Start 09/04/16 at 09:00 Cephalexin HCl (Keflex) 500 mg BID PO Last administered on 09/06/16 20:26; Start 09/05/16 at 21:00; Stop 09/07/16 at 07:12; Status DC Doxycycline Hyclate (Vibra-Tab) 100 mg BID PO Last administered on 09/07/16 09 :53; Start 09/06/16 at 21:00 Medroxyprogesterone Acetate (Provera) 5 mg DAILY PO Last administered on 09:55; Start 09/07/16 at 09:00 Lorazepam (Ativan) 0.5 mg TID PO Last administered on 09/07/16 13:30; Start at 21:00 Active Scripts Active Reported Tylenol (Acetaminophen) 325 Mg Tablet 650 Mg PO PRN Q4HRS PRN Levothyroxine Sodium 25 Mcg Tablet 25 Mcg PO DAILY06 Venlafaxine Hcl 37.5 Mg Tablet 37.5 Mg PO DAILY Aricept (Donepezil Hcl) 10 Mg Tablet 10 Mg PO DAILY Lorazepam 0.5 Mg Tablet 0.5 Mg PO QID Ranitidine Hcl 150 Mg Tablet 150 Mg PO BID Seroquel (Quetiapine Fumarate) 50 Mg Tablet 50 Mg PO BID Namenda (Memantine Hcl) 10 Mg Tablet 10 Mg PO BID Vitamin D3 (Cholecalciferol (Vitamin D3)) 1,000 Unit Tablet 1,000 Unit PO DAILY Multivitamins (Multivitamin) 1 Each Tablet 1 Tab PO DAILY Miralax (Polyethylene Glycol 3350) 119 Gm Powder 17 Gm PO PRN DAILY PRN Diagnosis: Problems: (1) Dementia with behavioral disturbance (2) Medical clearance for psychiatric admission PRISCILA GUEVARA MD Sep 07, 2016 21:02
[2016-09-07] MEDS: FAMOTIDINE 20 MG TABLET PO SCH (21:21)
[2016-09-08] MEDS: LEVOTHYROXINE 25 MCG TABLET. PO SCH (05:29)
[2016-09-08 06:09] VITALS: BP 101/61
[2016-09-08] MEDS: VENLAFAXINE 37.5 MG TABLET. PO SCH (09:57)
[2016-09-08] MEDS: MEDROXYPROGESTERONE 5 MG PO SCH (09:57)
[2016-09-08] MEDS: DONEPEZIL HCL 10 MG TABLET PO SCH (09:57)
[2016-09-08] MEDS: QUEtiapine 50 MG TABLET. PO SCH ×2 (09:57→19:39)
[2016-09-08] MEDS: CHOLECALCIFEROL (VITAMIN D3) 1,000 UNIT TABLET PO SCH (09:57)
[2016-09-08] MEDS: DOXYCYCLINE HYCLATE 100 MG TABLET PO SCH ×2 (09:57→19:39)
[2016-09-08] MEDS: MAGNESIUM CHLORIDE ER 64 MG TABLET.ER PO SCH (09:57)
[2016-09-08] MEDS: LORAZEPAM 0.5 MG TABLET PO SCH ×3 (09:57→19:38)
[2016-09-08] MEDS: MEMANTINE 10 MG TABLET. PO SCH ×2 (09:58→19:38)
[2016-09-08] MEDS: MULTIVITAMIN with MINERAL TABLET. PO SCH (09:58)
[2016-09-08 16:11] VITALS: BP 112/51
[2016-09-08] MEDS: FAMOTIDINE 20 MG TABLET PO SCH (19:39)
--- NOTE | 2016-09-09 00:37 | PN ---
DATE: 09/07/2016 PSYCHIATRIC PROGRESS NOTE This is a late entry for 09/07/2016 covers elements not covered in my initial note. SUBJECTIVE: The patient was sexually inappropriate the previous night with the female nursing staff stays in bed in between his meals. REVIEW OF SYSTEMS: No CV, , pulmonary, eye, ENT system symptoms on review. Reliability poor. MENTAL STATUS EXAM: Oriented to himself. Insight, judgment, recent and remote memory, attention, concentration, fund of knowledge poor, consistent with his diagnosis. LABORATORY DATA: Reviewed. IMPRESSION: Unchanged from initial note. PLAN: Maintain current psychotropics and he was started on Provera. Adjust further as clinically indicated. MAN Laina GUEVARA MD DR: WALESKA/rebecca JOB#: [id number] / [id number]
[2016-09-09] MEDS: LEVOTHYROXINE 25 MCG TABLET. PO SCH (05:06)
[2016-09-09 06:11] VITALS: BP 104/63
[2016-09-09 07:34] LABS: HEMATOCRIT 32.5 % (39.0-53.0); HEMOGLOBIN 10.9 g/dL (13.0-17.5); RED BLOOD COUNT 3.48 x10^6/uL (4.30-5.70); RED CELL DISTRIBUTION WIDTH 15.7 % (11.5-14.5); WHITE BLOOD COUNT 4.1 x10^3/uL (4.0-11.0)
[2016-09-09 07:52] LABS: ALBUMIN 2.7 g/dL (3.4-5.0); ALBUMIN/GLOBULIN RATIO 0.8 (1.0-1.7); CALCIUM 8.6 mg/dL (8.5-10.1); CREATININE 1.1 mg/dL (0.7-1.3); GFR 64.6; MAGNESIUM 1.5 mg/dL (1.8-2.4); POTASSIUM 3.7 mmol/L (3.5-5.1); TOTAL BILIRUBIN 0.2 mg/dL (0.2-1.0); TOTAL PROTEIN 6.3 g/dL (6.4-8.2)
[2016-09-09] MEDS: MAGNESIUM CHLORIDE ER 64 MG TABLET.ER PO SCH (08:00)
[2016-09-09] MEDS: VENLAFAXINE 37.5 MG TABLET. PO SCH (08:00)
[2016-09-09] MEDS: DONEPEZIL HCL 10 MG TABLET PO SCH (08:00)
[2016-09-09] MEDS: DOXYCYCLINE HYCLATE 100 MG TABLET PO SCH ×2 (08:00→20:11)
[2016-09-09] MEDS: MEDROXYPROGESTERONE 5 MG PO SCH (08:00)
[2016-09-09] MEDS: MULTIVITAMIN with MINERAL TABLET. PO SCH (08:01)
[2016-09-09] MEDS: MEMANTINE 10 MG TABLET. PO SCH ×2 (08:01→20:11)
[2016-09-09] MEDS: QUEtiapine 50 MG TABLET. PO SCH ×2 (08:01→20:11)
[2016-09-09] MEDS: CHOLECALCIFEROL (VITAMIN D3) 1,000 UNIT TABLET PO SCH (08:01)
[2016-09-09] MEDS: LORAZEPAM 0.5 MG TABLET PO SCH ×3 (08:02→20:11)
[2016-09-09 16:18] VITALS: BP 110/69
[2016-09-09] MEDS: FAMOTIDINE 20 MG TABLET PO SCH (20:12)
[2016-09-10] MEDS: LEVOTHYROXINE 25 MCG TABLET. PO SCH (05:41)
[2016-09-10 05:43] VITALS: BP 110/63
--- NOTE | 2016-09-10 09:13 | PDOC ---
Exam West Demential Exam: West Note: Please also refer to the separate dictated note~for this date of service dictated separately.~Patient seen individually. Discussed the patient with Nursing staff reviewed the chart.~Reviewed interim history and current functioning. Reviewed vital signs,~Labs/ Radiology~and current medications noted below. Continue current treatment with the changes noted in the dictated addendum note Assessment: Vital Signs: Vital Signs Date Time Temp Pulse Resp B/P Pulse Ox O2 Delivery O2 Flow Rate FiO2 09/10/16 05:43 97.6 56 20 110/63 98 09/08/16 16:11 Room Air 09/07/16 06:13 3.0 I&O Intake and Output 09/10/16 07:00 Intake Total 740 ml Balance 740 ml Intake Oral 740 ml Current Medications: Meds: Current Medications Ciprofloxacin (Cipro) 500 mg BID66 PO Last administered on 09/05/16 05:58; Start 09/04/16 at 06:00; Stop 09/05/16 at 13:14; Status DC Ciprofloxacin (Cipro) 500 mg 1X ONCE PO Last administered on 09/03/16 18:38; Start 09/03/16 at 18:45; Stop 09/03/16 at 18:46; Status DC Magnesium Chloride (Mag Delay) 64 mg 1X ONCE PO Last administered on 18:38; Start 09/03/16 at 18:30; Stop 09/03/16 at 18:31; Status DC Acetaminophen (Tylenol) 650 mg PRN Q6HRS PRN PO PAIN / TEMP; Start 09/03/16 at 18:30; Stop 09/04/16 at 07:06; Status DC Multi-Ingredient Ointment (Analgesic [place]) 1 rosanna PRN QID PRN TP MUSCLE PAIN; Start 09/03/16 at 19:45 Al Hydroxide/Mg Hydroxide (Mylanta Plus Xs) 15 ml PRN AFTMEALHC PRN PO DYSPEPSIA; Start 09/03/16 at 19:45 Magnesium Hydroxide (Milk Of Magnesia) 2,400 mg PRN QHS PRN PO CONSTIPATION; Start 09/03/16 at 19:45 Donepezil HCl (Aricept) 10 mg DAILY PO Last administered on 09/09/16 08:00; Start 09/04/16 at 09:00 Lorazepam (Ativan) 0.5 mg QID PO Last administered on 09/06/16 16:22; Start at 21:00; Stop 09/06/16 at 18:35; Status DC Memantine (Namenda) 10 mg BID PO Last administered on 09/09/16 20:11; Start at 21:00 Quetiapine Fumarate (SEROquel) 50 mg BID PO Last administered on 09/09/16 20: 11; Start 09/03/16 at 21:00 Venlafaxine HCl (Effexor) 37.5 mg DAILY PO Last administered on 09/09/16 08:00 ; Start 09/04/16 at 09:00 Acetaminophen (Tylenol) 650 mg PRN Q4HRS PRN PO PAIN / TEMP; Start 09/03/16 at 20:15 Vitamin D (Vitamin D3) 2,000 unit DAILY PO Last administered on 09/09/16 08:01 ; Start 09/04/16 at 09:00 Levothyroxine Sodium (Synthroid) 25 mcg DAILY06 PO Last administered on 05:41; Start 09/04/16 at 06:00 Polyethylene Glycol (miraLAX) 17 gm PRN DAILY PRN PO CONSTIPATION; Start at 21:00 Multivitamins/ Calcium (Thera-M Plus) 1 tab DAILY PO Last administered on 08:01; Start 09/04/16 at 09:00 Famotidine (Pepcid) 20 mg Q24H PO Last administered on 09/09/16 20:12; Start 09/03/16 at 21:00 Magnesium Chloride (Mag Delay) 64 mg DAILY PO Last administered on 09/09/16 08 :00; Start 09/04/16 at 09:00 Cephalexin HCl (Keflex) 500 mg BID PO Last administered on 09/06/16 20:26; Start 09/05/16 at 21:00; Stop 09/07/16 at 07:12; Status DC Doxycycline Hyclate (Vibra-Tab) 100 mg BID PO Last administered on 09/09/16 20 :11; Start 09/06/16 at 21:00 Medroxyprogesterone Acetate (Provera) 5 mg DAILY PO Last administered on 08:00; Start 09/07/16 at 09:00 Lorazepam (Ativan) 0.5 mg TID PO Last administered on 09/09/16 20:11; Start at 21:00 Active Scripts Active Reported Tylenol (Acetaminophen) 325 Mg Tablet 650 Mg PO PRN Q4HRS PRN Levothyroxine Sodium 25 Mcg Tablet 25 Mcg PO DAILY06 Venlafaxine Hcl 37.5 Mg Tablet 37.5 Mg PO DAILY Aricept (Donepezil Hcl) 10 Mg Tablet 10 Mg PO DAILY Lorazepam 0.5 Mg Tablet 0.5 Mg PO QID Ranitidine Hcl 150 Mg Tablet 150 Mg PO BID Seroquel (Quetiapine Fumarate) 50 Mg Tablet 50 Mg PO BID Namenda (Memantine Hcl) 10 Mg Tablet 10 Mg PO BID Vitamin D3 (Cholecalciferol (Vitamin D3)) 1,000 Unit Tablet 1,000 Unit PO DAILY Multivitamins (Multivitamin) 1 Each Tablet 1 Tab PO DAILY Miralax (Polyethylene Glycol 3350) 119 Gm Powder 17 Gm PO PRN DAILY PRN Diagnosis: Problems: (1) Dementia with behavioral disturbance PRISCILA GUEVARA MD Sep 10, 2016 09:13
[2016-09-10] MEDS: MAGNESIUM CHLORIDE ER 64 MG TABLET.ER PO SCH (09:29)
[2016-09-10] MEDS: CHOLECALCIFEROL (VITAMIN D3) 1,000 UNIT TABLET PO SCH (09:29)
[2016-09-10] MEDS: QUEtiapine 50 MG TABLET. PO SCH ×2 (09:29→19:25)
[2016-09-10] MEDS: MEDROXYPROGESTERONE 5 MG PO SCH (09:30)
[2016-09-10] MEDS: DOXYCYCLINE HYCLATE 100 MG TABLET PO SCH ×2 (09:30→19:25)
[2016-09-10] MEDS: MULTIVITAMIN with MINERAL TABLET. PO SCH (09:30)
[2016-09-10] MEDS: LORAZEPAM 0.5 MG TABLET PO SCH ×3 (09:30→19:26)
[2016-09-10] MEDS: MEMANTINE 10 MG TABLET. PO SCH ×2 (09:30→19:25)
[2016-09-10] MEDS: DONEPEZIL HCL 10 MG TABLET PO SCH (09:30)
[2016-09-10] MEDS: VENLAFAXINE 37.5 MG TABLET. PO SCH (09:30)
[2016-09-10 15:57] VITALS: BP 106/68
[2016-09-10] MEDS: FAMOTIDINE 20 MG TABLET PO SCH (19:28)
--- NOTE | 2016-09-11 01:33 | PN ---
DATE: 09/09/2016 PSYCHIATRIC PROGRESS NOTE This is a late entry for 09/09/2016, covers elements not covered in my initial note. SUBJECTIVE: Temperature 97.4, BP 104/63, pulse 58, respirations 17. Per nursing report, the patient remains confused, somewhat calm, sarcastic at times, playfully makes verbal comments that come across sexually inappropriate, but not as pronounced on 09/09/2016 on prior days. REVIEW OF SYSTEMS: I met with him in his room. No CV, , pulmonary, eye, ENT system symptoms on review. Reliability poor. MENTAL STATUS EXAM: Oriented to himself. Insight, judgment, recent and remote memory, attention, concentration, fund of knowledge poor, consistent with his diagnosis. LABORATORY DATA: Reviewed. IMPRESSION: Major neurocognitive disorder, Alzheimer, vascular with delusion, depression, behavioral disturbance. Rest diagnoses unchanged. PLAN: Continue current psychotropics. We will increase the Effexor to Effexor ER 75 mg daily. Maintain Aricept, Seroquel, Namenda, Ativan, and Provera at current time. MAN Laina GUEVARA MD DR: WALESKA/rebecca JOB#: [id number] / [id number]
--- NOTE | 2016-09-11 01:37 | PN ---
DATE: 09/08/2016 This is a late entry for 09/08/2016, and covers elements not covered in my initial note. SUBJECTIVE: The patient was seen individually on 09/08/2016 and also staffed at a treatment team meeting with the entire team and the patient's family attending as well. We reviewed the patient's history at length, diagnosis, treatment, discharge and aftercare plans. Family said most of the patient's sexually inappropriate behaviors had been verbal and not specifically sexual. We did inform them about starting the Provera and they said they would like for him to continue it, but only if [facility] had seen similar sexually inappropriate behaviors. As of the time of this dictation, we have confirmed this from [facility] that he has had similar behaviors there and we have informed the family and they are agreeable to continuing the Provera. REVIEW OF SYSTEMS: No CV, , pulmonary, eye, ENT system symptoms on review, withdraws to his room between meals, remains confused. MENTAL STATUS EXAM: Oriented to himself. Insight, judgment, recent and remote memory, attention, concentration, fund of knowledge poor, consistent with his diagnosis mentioned in my initial note. IMPRESSION: Unchanged from initial note. PLAN: Continue Effexor, Aricept, Seroquel and Namenda, Ativan, and Provera. Adjust further as clinically indicated. MAN Laina GUEVARA MD DR: WALESKA/rebecca JOB#: [id number] / [id number]
[2016-09-11 05:56] VITALS: BP 111/60
[2016-09-11] MEDS: LEVOTHYROXINE 25 MCG TABLET. PO SCH (06:20)
[2016-09-11] MEDS: DOXYCYCLINE HYCLATE 100 MG TABLET PO SCH ×2 (09:32→19:58)
[2016-09-11] MEDS: LORAZEPAM 0.5 MG TABLET PO SCH ×3 (09:32→19:59)
[2016-09-11] MEDS: MULTIVITAMIN with MINERAL TABLET. PO SCH (09:32)
[2016-09-11] MEDS: QUEtiapine 50 MG TABLET. PO SCH ×2 (09:33→19:58)
[2016-09-11] MEDS: DONEPEZIL HCL 10 MG TABLET PO SCH (09:33)
[2016-09-11] MEDS: MAGNESIUM CHLORIDE ER 64 MG TABLET.ER PO SCH (09:33)
[2016-09-11] MEDS: CHOLECALCIFEROL (VITAMIN D3) 1,000 UNIT TABLET PO SCH (09:33)
[2016-09-11] MEDS: MEMANTINE 10 MG TABLET. PO SCH ×2 (09:33→19:58)
[2016-09-11] MEDS: MEDROXYPROGESTERONE 5 MG PO SCH (09:33)
[2016-09-11] MEDS: VENLAFAXINE XR 37.5 MG CAP.ER.24H. PO SCH (09:35)
[2016-09-11 16:08] VITALS: BP 124/75
[2016-09-11] MEDS: FAMOTIDINE 20 MG TABLET PO SCH (19:58)
--- NOTE | 2016-09-11 21:54 | PDOC ---
Exam West Demential Exam: West Note: Please also refer to the separate dictated note~for this date of service dictated separately.~Patient seen individually. Discussed the patient with Nursing staff reviewed the chart.~Reviewed interim history and current functioning. Reviewed vital signs,~Labs/ Radiology~and current medications noted below. Continue current treatment with the changes noted in the dictated addendum note Assessment: Vital Signs: Vital Signs Date Time Temp Pulse Resp B/P Pulse Ox O2 Delivery O2 Flow Rate FiO2 09/11/16 16:08 97.4 72 20 124/75 97 09/11/16 05:56 Room Air 09/07/16 06:13 3.0 I&O Intake and Output 09/11/16 07:00 Intake Total 1070 ml Balance 1070 ml Intake Oral 1070 ml Current Medications: Meds: Current Medications Ciprofloxacin (Cipro) 500 mg BID66 PO Last administered on 09/05/16 05:58; Start 09/04/16 at 06:00; Stop 09/05/16 at 13:14; Status DC Ciprofloxacin (Cipro) 500 mg 1X ONCE PO Last administered on 09/03/16 18:38; Start 09/03/16 at 18:45; Stop 09/03/16 at 18:46; Status DC Magnesium Chloride (Mag Delay) 64 mg 1X ONCE PO Last administered on 18:38; Start 09/03/16 at 18:30; Stop 09/03/16 at 18:31; Status DC Acetaminophen (Tylenol) 650 mg PRN Q6HRS PRN PO PAIN / TEMP; Start 09/03/16 at 18:30; Stop 09/04/16 at 07:06; Status DC Multi-Ingredient Ointment (Analgesic [place]) 1 rosanna PRN QID PRN TP MUSCLE PAIN; Start 09/03/16 at 19:45 Al Hydroxide/Mg Hydroxide (Mylanta Plus Xs) 15 ml PRN AFTMEALHC PRN PO DYSPEPSIA; Start 09/03/16 at 19:45 Magnesium Hydroxide (Milk Of Magnesia) 2,400 mg PRN QHS PRN PO CONSTIPATION; Start 09/03/16 at 19:45 Donepezil HCl (Aricept) 10 mg DAILY PO Last administered on 09/11/16 09:33; Start 09/04/16 at 09:00 Lorazepam (Ativan) 0.5 mg QID PO Last administered on 09/06/16 16:22; Start at 21:00; Stop 09/06/16 at 18:35; Status DC Memantine (Namenda) 10 mg BID PO Last administered on 09/11/16 19:58; Start at 21:00 Quetiapine Fumarate (SEROquel) 50 mg BID PO Last administered on 09/11/16 19:58 ; Start 09/03/16 at 21:00 Venlafaxine HCl (Effexor) 37.5 mg DAILY PO Last administered on 09/10/16 09:30 ; Start 09/04/16 at 09:00; Stop 09/10/16 at 15:09; Status DC Acetaminophen (Tylenol) 650 mg PRN Q4HRS PRN PO PAIN / TEMP; Start 09/03/16 at 20:15 Vitamin D (Vitamin D3) 2,000 unit DAILY PO Last administered on 09/11/16 09:33 ; Start 09/04/16 at 09:00 Levothyroxine Sodium (Synthroid) 25 mcg DAILY06 PO Last administered on 06:20; Start 09/04/16 at 06:00 Polyethylene Glycol (miraLAX) 17 gm PRN DAILY PRN PO CONSTIPATION; Start at 21:00 Multivitamins/ Calcium (Thera-M Plus) 1 tab DAILY PO Last administered on 09:32; Start 09/04/16 at 09:00 Famotidine (Pepcid) 20 mg Q24H PO Last administered on 09/09/16 20:12; Start 09/03/16 at 21:00; Stop 09/10/16 at 19:27; Status DC Magnesium Chloride (Mag Delay) 64 mg DAILY PO Last administered on 09/11/16 09: 33; Start 09/04/16 at 09:00 Cephalexin HCl (Keflex) 500 mg BID PO Last administered on 09/06/16 20:26; Start 09/05/16 at 21:00; Stop 09/07/16 at 07:12; Status DC Doxycycline Hyclate (Vibra-Tab) 100 mg BID PO Last administered on 09/11/16 19: 58; Start 09/06/16 at 21:00 Medroxyprogesterone Acetate (Provera) 5 mg DAILY PO Last administered on 09:33; Start 09/07/16 at 09:00 Lorazepam (Ativan) 0.5 mg TID PO Last administered on 09/11/16 19:59; Start at 21:00 Venlafaxine HCl (Effexor Xr) 75 mg DAILY PO Last administered on 09/11/16 09:35 ; Start 09/11/16 at 09:00 Famotidine (Pepcid) 20 mg QHS PO Last administered on 09/11/16 19:58; Start at 21:00 Active Scripts Active Reported Tylenol (Acetaminophen) 325 Mg Tablet 650 Mg PO PRN Q4HRS PRN Levothyroxine Sodium 25 Mcg Tablet 25 Mcg PO DAILY06 Venlafaxine Hcl 37.5 Mg Tablet 37.5 Mg PO DAILY Aricept (Donepezil Hcl) 10 Mg Tablet 10 Mg PO DAILY Lorazepam 0.5 Mg Tablet 0.5 Mg PO QID Ranitidine Hcl 150 Mg Tablet 150 Mg PO BID Seroquel (Quetiapine Fumarate) 50 Mg Tablet 50 Mg PO BID Namenda (Memantine Hcl) 10 Mg Tablet 10 Mg PO BID Vitamin D3 (Cholecalciferol (Vitamin D3)) 1,000 Unit Tablet 1,000 Unit PO DAILY Multivitamins (Multivitamin) 1 Each Tablet 1 Tab PO DAILY Miralax (Polyethylene Glycol 3350) 119 Gm Powder 17 Gm PO PRN DAILY PRN Diagnosis: Problems: (1) Dementia with behavioral disturbance (2) Medical clearance for psychiatric admission PRISCILA GUEVARA MD Sep 11, 2016 21:54
[2016-09-12] MEDS: LEVOTHYROXINE 25 MCG TABLET. PO SCH (05:25)
[2016-09-12 06:03] VITALS: BP 118/63
[2016-09-12] MEDS: VENLAFAXINE XR 37.5 MG CAP.ER.24H. PO SCH (10:19)
[2016-09-12] MEDS: MEDROXYPROGESTERONE 5 MG PO SCH (10:19)
[2016-09-12] MEDS: LORAZEPAM 0.5 MG TABLET PO SCH ×3 (10:19→19:44)
[2016-09-12] MEDS: QUEtiapine 50 MG TABLET. PO SCH ×2 (10:19→19:44)
[2016-09-12] MEDS: DONEPEZIL HCL 10 MG TABLET PO SCH (10:19)
[2016-09-12] MEDS: MEMANTINE 10 MG TABLET. PO SCH ×2 (10:19→19:43)
[2016-09-12] MEDS: CHOLECALCIFEROL (VITAMIN D3) 1,000 UNIT TABLET PO SCH (10:19)
[2016-09-12] MEDS: MULTIVITAMIN with MINERAL TABLET. PO SCH (10:19)
[2016-09-12] MEDS: DOXYCYCLINE HYCLATE 100 MG TABLET PO SCH ×2 (10:20→19:43)
[2016-09-12] MEDS: MAGNESIUM CHLORIDE ER 64 MG TABLET.ER PO SCH (10:20)
--- NOTE | 2016-09-12 13:23 | PN ---
DATE: 09/10/2016 SUBJECTIVE: This is a late entry for 09/10/2016, covers elements not covered in my initial note. The patient has been sexually inappropriate with nursing report telling nursing staff to "climb in bed with me, I want "; spending much time in his room, at times refuses his medications. REVIEW OF SYSTEMS: No CV, , pulmonary, eye, ENT system symptoms on review. Reliability poor. MENTAL STATUS EXAM: Oriented to himself. Insight, judgment, recent and remote memory, attention, concentration, fund of knowledge poor, consistent with his diagnosis mentioned in my initial note. PLAN: Continue current psychotropics, adjust further as clinically indicated. He is on Provera 5 mg a day, nursing staff had checked with [facility], they were concerned about the sexually inappropriate statements there as well and family was informed about it; continuing Provera for now, they can reassess back at the care home. MAN Laina GUEVARA MD DR: WALESKA/rebecca JOB#: [id number] / [id number]
--- NOTE | 2016-09-12 13:59 | PN ---
DATE: 09/11/2016 This is a late entry for 09/11/2016, covers elements not covered in my initial note. SUBJECTIVE: Per nursing report, the patient was resistive the morning of 09/11/2016, refused breakfast, refused showers the previous night. No sexually inappropriate statements were noted per nursing report. REVIEW OF SYSTEMS: No CV, , pulmonary, eye, ENT system symptoms on review. Reliability poor. I met with him in his room. MENTAL STATUS EXAM: Oriented to himself. Insight, judgment, recent and remote memory, attention, concentration, fund of knowledge poor, consistent with his diagnosis mentioned in my initial note. PLAN: Continue current psychotropics, Effexor XR was increased to 75 mg a day and he is tolerating this reasonably. MAN Laina GUEVARA MD DR: WALESKA/rebecca JOB#: [id number] / [id number]
[2016-09-12 15:40] VITALS: BP 120/71
[2016-09-12] MEDS: FAMOTIDINE 20 MG TABLET PO SCH (19:44)
--- NOTE | 2016-09-12 20:32 | PDOC ---
Exam West Demential Exam: West Note: Please also refer to the separate dictated note~for this date of service dictated separately.~Patient seen individually. Discussed the patient with Nursing staff reviewed the chart.~Reviewed interim history and current functioning. Reviewed vital signs,~Labs/ Radiology~and current medications noted below. Continue current treatment with the changes noted in the dictated addendum note Assessment: Vital Signs: Vital Signs Date Time Temp Pulse Resp B/P Pulse Ox O2 Delivery O2 Flow Rate FiO2 09/12/16 15:40 97.1 73 17 120/71 96 09/11/16 05:56 Room Air 09/07/16 06:13 3.0 I&O Intake and Output 09/12/16 07:00 Intake Total 1080 ml Balance 1080 ml Intake Oral 1080 ml Current Medications: Meds: Current Medications Ciprofloxacin (Cipro) 500 mg BID66 PO Last administered on 09/05/16 05:58; Start 09/04/16 at 06:00; Stop 09/05/16 at 13:14; Status DC Ciprofloxacin (Cipro) 500 mg 1X ONCE PO Last administered on 09/03/16 18:38; Start 09/03/16 at 18:45; Stop 09/03/16 at 18:46; Status DC Magnesium Chloride (Mag Delay) 64 mg 1X ONCE PO Last administered on 18:38; Start 09/03/16 at 18:30; Stop 09/03/16 at 18:31; Status DC Acetaminophen (Tylenol) 650 mg PRN Q6HRS PRN PO PAIN / TEMP; Start 09/03/16 at 18:30; Stop 09/04/16 at 07:06; Status DC Multi-Ingredient Ointment (Analgesic [place]) 1 rosanna PRN QID PRN TP MUSCLE PAIN; Start 09/03/16 at 19:45 Al Hydroxide/Mg Hydroxide (Mylanta Plus Xs) 15 ml PRN AFTMEALHC PRN PO DYSPEPSIA; Start 09/03/16 at 19:45 Magnesium Hydroxide (Milk Of Magnesia) 2,400 mg PRN QHS PRN PO CONSTIPATION; Start 09/03/16 at 19:45 Donepezil HCl (Aricept) 10 mg DAILY PO Last administered on 09/12/16 10:19; Start 09/04/16 at 09:00 Lorazepam (Ativan) 0.5 mg QID PO Last administered on 09/06/16 16:22; Start at 21:00; Stop 09/06/16 at 18:35; Status DC Memantine (Namenda) 10 mg BID PO Last administered on 09/12/16 19:43; Start at 21:00 Quetiapine Fumarate (SEROquel) 50 mg BID PO Last administered on 09/12/16 19:44 ; Start 09/03/16 at 21:00 Venlafaxine HCl (Effexor) 37.5 mg DAILY PO Last administered on 09/10/16 09:30 ; Start 09/04/16 at 09:00; Stop 09/10/16 at 15:09; Status DC Acetaminophen (Tylenol) 650 mg PRN Q4HRS PRN PO PAIN / TEMP; Start 09/03/16 at 20:15 Vitamin D (Vitamin D3) 2,000 unit DAILY PO Last administered on 09/12/16 10:19 ; Start 09/04/16 at 09:00 Levothyroxine Sodium (Synthroid) 25 mcg DAILY06 PO Last administered on 05:25; Start 09/04/16 at 06:00 Polyethylene Glycol (miraLAX) 17 gm PRN DAILY PRN PO CONSTIPATION; Start at 21:00 Multivitamins/ Calcium (Thera-M Plus) 1 tab DAILY PO Last administered on 10:19; Start 09/04/16 at 09:00 Famotidine (Pepcid) 20 mg Q24H PO Last administered on 09/09/16 20:12; Start 09/03/16 at 21:00; Stop 09/10/16 at 19:27; Status DC Magnesium Chloride (Mag Delay) 64 mg DAILY PO Last administered on 09/12/16 10: 20; Start 09/04/16 at 09:00 Cephalexin HCl (Keflex) 500 mg BID PO Last administered on 09/06/16 20:26; Start 09/05/16 at 21:00; Stop 09/07/16 at 07:12; Status DC Doxycycline Hyclate (Vibra-Tab) 100 mg BID PO Last administered on 09/12/16 19: 43; Start 09/06/16 at 21:00 Medroxyprogesterone Acetate (Provera) 5 mg DAILY PO Last administered on 10:19; Start 09/07/16 at 09:00 Lorazepam (Ativan) 0.5 mg TID PO Last administered on 09/12/16 19:44; Start at 21:00 Venlafaxine HCl (Effexor Xr) 75 mg DAILY PO Last administered on 09/12/16 10:19 ; Start 09/11/16 at 09:00 Famotidine (Pepcid) 20 mg QHS PO Last administered on 09/12/16 19:44; Start at 21:00 Active Scripts Active Reported Tylenol (Acetaminophen) 325 Mg Tablet 650 Mg PO PRN Q4HRS PRN Levothyroxine Sodium 25 Mcg Tablet 25 Mcg PO DAILY06 Venlafaxine Hcl 37.5 Mg Tablet 37.5 Mg PO DAILY Aricept (Donepezil Hcl) 10 Mg Tablet 10 Mg PO DAILY Lorazepam 0.5 Mg Tablet 0.5 Mg PO QID Ranitidine Hcl 150 Mg Tablet 150 Mg PO BID Seroquel (Quetiapine Fumarate) 50 Mg Tablet 50 Mg PO BID Namenda (Memantine Hcl) 10 Mg Tablet 10 Mg PO BID Vitamin D3 (Cholecalciferol (Vitamin D3)) 1,000 Unit Tablet 1,000 Unit PO DAILY Multivitamins (Multivitamin) 1 Each Tablet 1 Tab PO DAILY Miralax (Polyethylene Glycol 3350) 119 Gm Powder 17 Gm PO PRN DAILY PRN Diagnosis: Problems: (1) Dementia with behavioral disturbance (2) Medical clearance for psychiatric admission PRISCILA GUEVARA MD Sep 12, 2016 20:32
[2016-09-13] MEDS: LEVOTHYROXINE 25 MCG TABLET. PO SCH (05:43)
[2016-09-13 06:23] VITALS: BP 131/66
[2016-09-13] MEDS: MEDROXYPROGESTERONE 5 MG PO SCH (08:23)
[2016-09-13] MEDS: MEMANTINE 10 MG TABLET. PO SCH ×2 (08:24→19:23)
[2016-09-13] MEDS: MULTIVITAMIN with MINERAL TABLET. PO SCH (08:24)
[2016-09-13] MEDS: DONEPEZIL HCL 10 MG TABLET PO SCH (08:24)
[2016-09-13] MEDS: MAGNESIUM CHLORIDE ER 64 MG TABLET.ER PO SCH (08:24)
[2016-09-13] MEDS: QUEtiapine 50 MG TABLET. PO SCH ×2 (08:25→19:23)
[2016-09-13] MEDS: VENLAFAXINE XR 37.5 MG CAP.ER.24H. PO SCH (08:25)
[2016-09-13] MEDS: DOXYCYCLINE HYCLATE 100 MG TABLET PO SCH ×2 (08:25→19:23)
[2016-09-13] MEDS: LORAZEPAM 0.5 MG TABLET PO SCH ×3 (08:25→19:23)
[2016-09-13] MEDS: CHOLECALCIFEROL (VITAMIN D3) 1,000 UNIT TABLET PO SCH (08:25)
[2016-09-13 16:35] VITALS: BP 102/62
[2016-09-13] MEDS: FAMOTIDINE 20 MG TABLET PO SCH (19:23)
--- NOTE | 2016-09-13 20:26 | PN ---
DATE: 09/12/2016 This is a late entry for 09/12/2016, covers elements not covered in my initial note. HISTORY OF PRESENT ILLNESS: Overall, the patient remains confused, not sexually aggressive, otherwise cooperative. REVIEW OF SYSTEMS: No CV, , pulmonary, eye, ENT system symptoms on review. I met with him in his room. Reliability poor. MENTAL STATUS EXAM: Oriented to himself. Insight, judgment, recent and remote memory, attention, concentration, fund of knowledge poor, consistent with his diagnosis mentioned in my initial note. LABORATORY DATA: Reviewed. PLAN: Continue current psychotropics mentioned in my initial note, Effexor 75 mg a day, Aricept 10 mg a day, Seroquel 50 b.i.d., Namenda 10 b.i.d., Provera 5 mg a day, Ativan 0.5 t.i.d., adjust further as clinically indicated. PRISCILA GUEVARA MD DR: WALESKA/rebecca JOB#: [id number] / [id number]
--- NOTE | 2016-09-13 21:00 | PDOC ---
Exam West Demential Exam: West Note: Please also refer to the separate dictated note~for this date of service dictated separately.~Patient seen individually. Discussed the patient with Nursing staff reviewed the chart.~Reviewed interim history and current functioning. Reviewed vital signs,~Labs/ Radiology~and current medications noted below. Continue current treatment with the changes noted in the dictated addendum note Assessment: Vital Signs: Vital Signs Date Time Temp Pulse Resp B/P Pulse Ox O2 Delivery O2 Flow Rate FiO2 09/13/16 16:35 97.6 68 16 102/62 97 09/13/16 06:23 Room Air I&O Intake and Output 09/13/16 07:00 Intake Total 1800 ml Balance 1800 ml Intake Oral 1800 ml Current Medications: Meds: Current Medications Ciprofloxacin (Cipro) 500 mg BID66 PO Last administered on 09/05/16 05:58; Start 09/04/16 at 06:00; Stop 09/05/16 at 13:14; Status DC Ciprofloxacin (Cipro) 500 mg 1X ONCE PO Last administered on 09/03/16 18:38; Start 09/03/16 at 18:45; Stop 09/03/16 at 18:46; Status DC Magnesium Chloride (Mag Delay) 64 mg 1X ONCE PO Last administered on 18:38; Start 09/03/16 at 18:30; Stop 09/03/16 at 18:31; Status DC Acetaminophen (Tylenol) 650 mg PRN Q6HRS PRN PO PAIN / TEMP; Start 09/03/16 at 18:30; Stop 09/04/16 at 07:06; Status DC Multi-Ingredient Ointment (Analgesic [place]) 1 rosanna PRN QID PRN TP MUSCLE PAIN; Start 09/03/16 at 19:45 Al Hydroxide/Mg Hydroxide (Mylanta Plus Xs) 15 ml PRN AFTMEALHC PRN PO DYSPEPSIA; Start 09/03/16 at 19:45 Magnesium Hydroxide (Milk Of Magnesia) 2,400 mg PRN QHS PRN PO CONSTIPATION; Start 09/03/16 at 19:45 Donepezil HCl (Aricept) 10 mg DAILY PO Last administered on 09/13/16 08:24; Start 09/04/16 at 09:00 Lorazepam (Ativan) 0.5 mg QID PO Last administered on 09/06/16 16:22; Start at 21:00; Stop 09/06/16 at 18:35; Status DC Memantine (Namenda) 10 mg BID PO Last administered on 09/13/16 19:23; Start at 21:00 Quetiapine Fumarate (SEROquel) 50 mg BID PO Last administered on 09/13/16 19:23 ; Start 09/03/16 at 21:00 Venlafaxine HCl (Effexor) 37.5 mg DAILY PO Last administered on 09/10/16 09:30 ; Start 09/04/16 at 09:00; Stop 09/10/16 at 15:09; Status DC Acetaminophen (Tylenol) 650 mg PRN Q4HRS PRN PO PAIN / TEMP; Start 09/03/16 at 20:15 Vitamin D (Vitamin D3) 2,000 unit DAILY PO Last administered on 09/13/16 08:25 ; Start 09/04/16 at 09:00 Levothyroxine Sodium (Synthroid) 25 mcg DAILY06 PO Last administered on 05:43; Start 09/04/16 at 06:00 Polyethylene Glycol (miraLAX) 17 gm PRN DAILY PRN PO CONSTIPATION; Start at 21:00 Multivitamins/ Calcium (Thera-M Plus) 1 tab DAILY PO Last administered on 08:24; Start 09/04/16 at 09:00 Famotidine (Pepcid) 20 mg Q24H PO Last administered on 09/09/16 20:12; Start 09/03/16 at 21:00; Stop 09/10/16 at 19:27; Status DC Magnesium Chloride (Mag Delay) 64 mg DAILY PO Last administered on 09/13/16 08: 24; Start 09/04/16 at 09:00 Cephalexin HCl (Keflex) 500 mg BID PO Last administered on 09/06/16 20:26; Start 09/05/16 at 21:00; Stop 09/07/16 at 07:12; Status DC Doxycycline Hyclate (Vibra-Tab) 100 mg BID PO Last administered on 09/13/16 19: 23; Start 09/06/16 at 21:00 Medroxyprogesterone Acetate (Provera) 5 mg DAILY PO Last administered on 08:23; Start 09/07/16 at 09:00 Lorazepam (Ativan) 0.5 mg TID PO Last administered on 09/13/16 19:23; Start at 21:00 Venlafaxine HCl (Effexor Xr) 75 mg DAILY PO Last administered on 09/13/16 08:25 ; Start 09/11/16 at 09:00 Famotidine (Pepcid) 20 mg QHS PO Last administered on 09/13/16 19:23; Start at 21:00 Active Scripts Active Reported Tylenol (Acetaminophen) 325 Mg Tablet 650 Mg PO PRN Q4HRS PRN Levothyroxine Sodium 25 Mcg Tablet 25 Mcg PO DAILY06 Venlafaxine Hcl 37.5 Mg Tablet 37.5 Mg PO DAILY Aricept (Donepezil Hcl) 10 Mg Tablet 10 Mg PO DAILY Lorazepam 0.5 Mg Tablet 0.5 Mg PO QID Ranitidine Hcl 150 Mg Tablet 150 Mg PO BID Seroquel (Quetiapine Fumarate) 50 Mg Tablet 50 Mg PO BID Namenda (Memantine Hcl) 10 Mg Tablet 10 Mg PO BID Vitamin D3 (Cholecalciferol (Vitamin D3)) 1,000 Unit Tablet 1,000 Unit PO DAILY Multivitamins (Multivitamin) 1 Each Tablet 1 Tab PO DAILY Miralax (Polyethylene Glycol 3350) 119 Gm Powder 17 Gm PO PRN DAILY PRN Diagnosis: Problems: (1) Dementia with behavioral disturbance (2) Medical clearance for psychiatric admission PRISCILA GUEVARA MD Sep 13, 2016 21:00
[2016-09-14] MEDS: LEVOTHYROXINE 25 MCG TABLET. PO SCH (04:51)
[2016-09-14 05:40] VITALS: BP 110/65
[2016-09-14] MEDS: VENLAFAXINE XR 37.5 MG CAP.ER.24H. PO SCH (08:26)
[2016-09-14] MEDS: MEDROXYPROGESTERONE 5 MG PO SCH (08:26)
[2016-09-14] MEDS: DOXYCYCLINE HYCLATE 100 MG TABLET PO SCH (08:26)
[2016-09-14] MEDS: MAGNESIUM CHLORIDE ER 64 MG TABLET.ER PO SCH (08:26)
[2016-09-14] MEDS: DONEPEZIL HCL 10 MG TABLET PO SCH (08:26)
[2016-09-14] MEDS: CHOLECALCIFEROL (VITAMIN D3) 1,000 UNIT TABLET PO SCH (08:27)
[2016-09-14] MEDS: MEMANTINE 10 MG TABLET. PO SCH ×2 (08:27→19:31)
[2016-09-14] MEDS: QUEtiapine 50 MG TABLET. PO SCH ×2 (08:27→19:31)
[2016-09-14] MEDS: MULTIVITAMIN with MINERAL TABLET. PO SCH (08:27)
[2016-09-14] MEDS: LORAZEPAM 0.5 MG TABLET PO SCH ×3 (08:29→19:31)
[2016-09-14] MEDS: PRENATAL MULTIVITAMIN TABLET. PO SCH (12:55)
[2016-09-14 16:12] VITALS: BP 109/63
[2016-09-14] MEDS: FAMOTIDINE 20 MG TABLET PO SCH (19:31)
--- NOTE | 2016-09-14 20:59 | PDOC ---
Exam West Demential Exam: West Note: Please also refer to the separate dictated note~for this date of service dictated separately.~Patient seen individually. Discussed the patient with Nursing staff reviewed the chart.~Reviewed interim history and current functioning. Reviewed vital signs,~Labs/ Radiology~and current medications noted below. Continue current treatment with the changes noted in the dictated addendum note Assessment: Vital Signs: Vital Signs Date Time Temp Pulse Resp B/P Pulse Ox O2 Delivery O2 Flow Rate FiO2 09/14/16 16:12 98.4 65 20 109/63 97 09/14/16 05:40 Room Air I&O Intake and Output 09/14/16 07:00 Intake Total 960 ml Balance 960 ml Intake Oral 960 ml # Voids 2 Current Medications: Meds: Current Medications Ciprofloxacin (Cipro) 500 mg BID66 PO Last administered on 09/05/16 05:58; Start 09/04/16 at 06:00; Stop 09/05/16 at 13:14; Status DC Ciprofloxacin (Cipro) 500 mg 1X ONCE PO Last administered on 09/03/16 18:38; Start 09/03/16 at 18:45; Stop 09/03/16 at 18:46; Status DC Magnesium Chloride (Mag Delay) 64 mg 1X ONCE PO Last administered on 18:38; Start 09/03/16 at 18:30; Stop 09/03/16 at 18:31; Status DC Acetaminophen (Tylenol) 650 mg PRN Q6HRS PRN PO PAIN / TEMP; Start 09/03/16 at 18:30; Stop 09/04/16 at 07:06; Status DC Multi-Ingredient Ointment (Analgesic [place]) 1 rosanna PRN QID PRN TP MUSCLE PAIN; Start 09/03/16 at 19:45 Al Hydroxide/Mg Hydroxide (Mylanta Plus Xs) 15 ml PRN AFTMEALHC PRN PO DYSPEPSIA; Start 09/03/16 at 19:45 Magnesium Hydroxide (Milk Of Magnesia) 2,400 mg PRN QHS PRN PO CONSTIPATION; Start 09/03/16 at 19:45 Donepezil HCl (Aricept) 10 mg DAILY PO Last administered on 09/14/16 08:26; Start 09/04/16 at 09:00 Lorazepam (Ativan) 0.5 mg QID PO Last administered on 09/06/16 16:22; Start at 21:00; Stop 09/06/16 at 18:35; Status DC Memantine (Namenda) 10 mg BID PO Last administered on 09/14/16 19:31; Start at 21:00 Quetiapine Fumarate (SEROquel) 50 mg BID PO Last administered on 09/14/16 19:31 ; Start 09/03/16 at 21:00 Venlafaxine HCl (Effexor) 37.5 mg DAILY PO Last administered on 09/10/16 09:30 ; Start 09/04/16 at 09:00; Stop 09/10/16 at 15:09; Status DC Acetaminophen (Tylenol) 650 mg PRN Q4HRS PRN PO PAIN / TEMP; Start 09/03/16 at 20:15 Vitamin D (Vitamin D3) 2,000 unit DAILY PO Last administered on 09/14/16 08:27 ; Start 09/04/16 at 09:00 Levothyroxine Sodium (Synthroid) 25 mcg DAILY06 PO Last administered on 04:51; Start 09/04/16 at 06:00 Polyethylene Glycol (miraLAX) 17 gm PRN DAILY PRN PO CONSTIPATION; Start at 21:00 Multivitamins/ Calcium (Thera-M Plus) 1 tab DAILY PO Last administered on 08:27; Start 09/04/16 at 09:00; Stop 09/14/16 at 10:01; Status DC Famotidine (Pepcid) 20 mg Q24H PO Last administered on 09/09/16 20:12; Start 09/03/16 at 21:00; Stop 09/10/16 at 19:27; Status DC Magnesium Chloride (Mag Delay) 64 mg DAILY PO Last administered on 09/14/16 08: 26; Start 09/04/16 at 09:00 Cephalexin HCl (Keflex) 500 mg BID PO Last administered on 09/06/16 20:26; Start 09/05/16 at 21:00; Stop 09/07/16 at 07:12; Status DC Doxycycline Hyclate (Vibra-Tab) 100 mg BID PO Last administered on 09/14/16 08: 26; Start 09/06/16 at 21:00; Stop 09/14/16 at 09:36; Status DC Medroxyprogesterone Acetate (Provera) 5 mg DAILY PO Last administered on 08:26; Start 09/07/16 at 09:00 Lorazepam (Ativan) 0.5 mg TID PO Last administered on 09/14/16 19:31; Start at 21:00 Venlafaxine HCl (Effexor Xr) 75 mg DAILY PO Last administered on 09/14/16 08:26 ; Start 09/11/16 at 09:00 Famotidine (Pepcid) 20 mg QHS PO Last administered on 09/14/16 19:31; Start at 21:00 Prenat Multivit/ [place]/Iron/Folic Ac (Multivitamin ) 1 tab DAILYWLUN PO Last administered on 09/14/16 12:55; Start 09/14/16 at 12:00 Active Scripts Active Reported Tylenol (Acetaminophen) 325 Mg Tablet 650 Mg PO PRN Q4HRS PRN Levothyroxine Sodium 25 Mcg Tablet 25 Mcg PO DAILY06 Venlafaxine Hcl 37.5 Mg Tablet 37.5 Mg PO DAILY Aricept (Donepezil Hcl) 10 Mg Tablet 10 Mg PO DAILY Lorazepam 0.5 Mg Tablet 0.5 Mg PO QID Ranitidine Hcl 150 Mg Tablet 150 Mg PO BID Seroquel (Quetiapine Fumarate) 50 Mg Tablet 50 Mg PO BID Namenda (Memantine Hcl) 10 Mg Tablet 10 Mg PO BID Vitamin D3 (Cholecalciferol (Vitamin D3)) 1,000 Unit Tablet 1,000 Unit PO DAILY Multivitamins (Multivitamin) 1 Each Tablet 1 Tab PO DAILY Miralax (Polyethylene Glycol 3350) 119 Gm Powder 17 Gm PO PRN DAILY PRN Diagnosis: Problems: (1) Dementia with behavioral disturbance (2) Medical clearance for psychiatric admission PRISCILA GUEVARA MD Sep 14, 2016 20:58
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
[2016-09-15] MEDS: LEVOTHYROXINE 25 MCG TABLET. PO SCH (05:37)
[2016-09-15 05:41] VITALS: BP 108/64
[2016-09-15 06:53] LABS: ALBUMIN 2.9 g/dL (3.4-5.0); ALBUMIN/GLOBULIN RATIO 0.8 (1.0-1.7); BASO % 1 % (0-3); CALCIUM 8.8 mg/dL (8.5-10.1); CREATININE 1.1 mg/dL (0.7-1.3); EOS # 0.4 x10^3/uL (0.0-0.7); EOS % 12 % (0-3); GFR 64.6; HEMATOCRIT 33.1 % (39.0-53.0); LYMPH # 1.1 x10^3/uL (1.0-4.8); LYMPH % 32 % (24-48); MAGNESIUM 1.6 mg/dL (1.8-2.4); MEAN CORPUSCULAR HEMOGLOBIN 31 pg (25-35); MEAN CORPUSCULAR HGB CONC 33 g/dL (31-37); MEAN CORPUSCULAR VOLUME 94 fL (79-100); MONO # 0.3 x10^3/uL (0.0-1.1); MONO % 9 % (0-9); NEUT # 1.5 x10^3uL (1.8-7.7); NEUT % 46 % (31-73); PLATELET COUNT 85 x10^3/uL (140-400); POTASSIUM 4.2 mmol/L (3.5-5.1); RED CELL DISTRIBUTION WIDTH 15.6 % (11.5-14.5); TOTAL BILIRUBIN 0.4 mg/dL (0.2-1.0); TOTAL PROTEIN 6.5 g/dL (6.4-8.2); WHITE BLOOD COUNT 3.4 x10^3/uL (4.0-11.0)
[2016-09-15] MEDS: VENLAFAXINE XR 37.5 MG CAP.ER.24H. PO SCH (08:34)
[2016-09-15] MEDS: CHOLECALCIFEROL (VITAMIN D3) 1,000 UNIT TABLET PO SCH (08:34)
[2016-09-15] MEDS: MAGNESIUM CHLORIDE ER 64 MG TABLET.ER PO SCH (08:34)
[2016-09-15] MEDS: QUEtiapine 50 MG TABLET. PO SCH ×2 (08:34→19:15)
[2016-09-15] MEDS: MEMANTINE 10 MG TABLET. PO SCH ×2 (08:35→19:15)
[2016-09-15] MEDS: MEDROXYPROGESTERONE 5 MG PO SCH (08:35)
[2016-09-15] MEDS: DONEPEZIL HCL 10 MG TABLET PO SCH (08:35)
[2016-09-15] MEDS: LORAZEPAM 0.5 MG TABLET PO SCH ×3 (08:38→19:14)
[2016-09-15] MEDS: PRENATAL MULTIVITAMIN TABLET. PO SCH (12:00)
[2016-09-15] MEDS ORDERED: PNV1TABL25 PO (15:58)
[2016-09-15] MEDS ORDERED: MAG30ORA2 PO (16:09)
[2016-09-15] MEDS ORDERED: MAGN64TA6 PO (16:11)
[2016-09-15] MEDS ORDERED: MAGN2400 PO (16:11)
[2016-09-15] MEDS ORDERED: MEDR5TAB PO (16:12)
[2016-09-15 16:16] VITALS: BP 146/66
[2016-09-15] MEDS ORDERED: METH29OI TP (16:23)
[2016-09-15] MEDS: FAMOTIDINE 20 MG TABLET PO SCH (19:15)
--- NOTE | 2016-09-15 21:02 | PDOC ---
Exam West Demential Exam: West Note: Please also refer to the separate dictated note~for this date of service dictated separately.~Patient seen individually. Discussed the patient with Nursing staff reviewed the chart.~Reviewed interim history and current functioning. Reviewed vital signs,~Labs/ Radiology~and current medications noted below. Continue current treatment with the changes noted in the dictated addendum note Assessment: Vital Signs: Vital Signs Date Time Temp Pulse Resp B/P Pulse Ox O2 Delivery O2 Flow Rate FiO2 09/15/16 16:16 98.0 81 20 146/66 97 09/14/16 05:40 Room Air I&O Intake and Output 09/15/16 07:00 Intake Total 825 ml Balance 825 ml Intake Oral 825 ml # Voids 2 Labs: Laboratory Tests Test 09/15/16 06:29 White Blood Count 3.4x10^3/uL (4.0-11.0) L Red Blood Count 3.50x10^6/uL (4.30-5.70) L Hemoglobin 11.0g/dL (13.0-17.5) L Hematocrit 33.1% (39.0-53.0) L Mean Corpuscular Volume 94fL (79-100) Mean Corpuscular Hemoglobin 31pg (25-35) Mean Corpuscular Hemoglobin Concent 33g/dL (31-37) Red Cell Distribution Width 15.6% (11.5-14.5) H Platelet Count 85x10^3/uL (140-400) L Neutrophils (%) (Auto) 46% (31-73) Lymphocytes (%) (Auto) 32% (24-48) Monocytes (%) (Auto) 9% (0-9) Eosinophils (%) (Auto) 12% (0-3) H Basophils (%) (Auto) 1% (0-3) Neutrophils # (Auto) 1.5x10^3uL (1.8-7.7) L Lymphocytes # (Auto) 1.1x10^3/uL (1.0-4.8) Monocytes # (Auto) 0.3x10^3/uL (0.0-1.1) Eosinophils # (Auto) 0.4x10^3/uL (0.0-0.7) Basophils # (Auto) 0.0x10^3/uL (0.0-0.2) Sodium Level 143mmol/L (136-145) Potassium Level 4.2mmol/L (3.5-5.1) Chloride Level 107mmol/L (98-107) Carbon Dioxide Level 30mmol/L (21-32) Anion Gap 6 (6-14) Blood Urea Nitrogen 22mg/dL (8-26) Creatinine 1.1mg/dL (0.7-1.3) Estimated GFR (Cockcroft-Gault) 64.6 BUN/Creatinine Ratio 20 (6-20) Glucose Level 86mg/dL (70-99) Calcium Level 8.8mg/dL (8.5-10.1) Magnesium Level 1.6mg/dL (1.8-2.4) L Total Bilirubin 0.4mg/dL (0.2-1.0) Aspartate Amino Transferase (AST) 33U/L (15-37) Alanine Aminotransferase (ALT) 40U/L (16-63) Alkaline Phosphatase 113U/L (46-116) Total Protein 6.5g/dL (6.4-8.2) Albumin 2.9g/dL (3.4-5.0) L Albumin/Globulin Ratio 0.8 (1.0-1.7) L Current Medications: Meds: Current Medications Ciprofloxacin (Cipro) 500 mg BID66 PO Last administered on 09/05/16 05:58; Start 09/04/16 at 06:00; Stop 09/05/16 at 13:14; Status DC Ciprofloxacin (Cipro) 500 mg 1X ONCE PO Last administered on 09/03/16 18:38; Start 09/03/16 at 18:45; Stop 09/03/16 at 18:46; Status DC Magnesium Chloride (Mag Delay) 64 mg 1X ONCE PO Last administered on 18:38; Start 09/03/16 at 18:30; Stop 09/03/16 at 18:31; Status DC Acetaminophen (Tylenol) 650 mg PRN Q6HRS PRN PO PAIN / TEMP; Start 09/03/16 at 18:30; Stop 09/04/16 at 07:06; Status DC Multi-Ingredient Ointment (Analgesic Lolo) 1 carol ann PRN QID PRN TP MUSCLE PAIN; Start 09/03/16 at 19:45 Al Hydroxide/Mg Hydroxide (Mylanta Plus Xs) 15 ml PRN AFTMEALHC PRN PO DYSPEPSIA; Start 09/03/16 at 19:45 Magnesium Hydroxide (Milk Of Magnesia) 2,400 mg PRN QHS PRN PO CONSTIPATION; Start 09/03/16 at 19:45 Donepezil HCl (Aricept) 10 mg DAILY PO Last administered on 09/15/16 08:35; Start 09/04/16 at 09:00 Lorazepam (Ativan) 0.5 mg QID PO Last administered on 09/06/16 16:22; Start at 21:00; Stop 09/06/16 at 18:35; Status DC Memantine (Namenda) 10 mg BID PO Last administered on 09/15/16 19:15; Start at 21:00 Quetiapine Fumarate (SEROquel) 50 mg BID PO Last administered on 09/15/16 19:15 ; Start 09/03/16 at 21:00 Venlafaxine HCl (Effexor) 37.5 mg DAILY PO Last administered on 09/10/16 09:30 ; Start 09/04/16 at 09:00; Stop 09/10/16 at 15:09; Status DC Acetaminophen (Tylenol) 650 mg PRN Q4HRS PRN PO PAIN / TEMP Last administered on 09/15/16 19:16; Start 09/03/16 at 20:15 Vitamin D (Vitamin D3) 2,000 unit DAILY PO Last administered on 09/15/16 08:34 ; Start 09/04/16 at 09:00 Levothyroxine Sodium (Synthroid) 25 mcg DAILY06 PO Last administered on 05:37; Start 09/04/16 at 06:00 Polyethylene Glycol (miraLAX) 17 gm PRN DAILY PRN PO CONSTIPATION; Start at 21:00 Multivitamins/ Calcium (Thera-M Plus) 1 tab DAILY PO Last administered on 08:27; Start 09/04/16 at 09:00; Stop 09/14/16 at 10:01; Status DC Famotidine (Pepcid) 20 mg Q24H PO Last administered on 09/09/16 20:12; Start 09/03/16 at 21:00; Stop 09/10/16 at 19:27; Status DC Magnesium Chloride (Mag Delay) 64 mg DAILY PO Last administered on 09/15/16 08: 34; Start 09/04/16 at 09:00 Cephalexin HCl (Keflex) 500 mg BID PO Last administered on 09/06/16 20:26; Start 09/05/16 at 21:00; Stop 09/07/16 at 07:12; Status DC Doxycycline Hyclate (Vibra-Tab) 100 mg BID PO Last administered on 09/14/16 08: 26; Start 09/06/16 at 21:00; Stop 09/14/16 at 09:36; Status DC Medroxyprogesterone Acetate (Provera) 5 mg DAILY PO Last administered on 08:35; Start 09/07/16 at 09:00 Lorazepam (Ativan) 0.5 mg TID PO Last administered on 09/15/16 19:14; Start at 21:00 Venlafaxine HCl (Effexor Xr) 75 mg DAILY PO Last administered on 09/15/16 08:34 ; Start 09/11/16 at 09:00 Famotidine (Pepcid) 20 mg QHS PO Last administered on 09/15/16 19:15; Start at 21:00 Prenat Multivit/ [place]/Iron/Folic Ac (Multivitamin ) 1 tab DAILYWLUN PO Last administered on 09/15/16 12:00; Start 09/14/16 at 12:00 Active Scripts Active Reported Analgesic Lolo (Methyl Salicylate/Menthol) 29 Gm Oint...g. 1 Carol Ann TP PRN QID PRN Provera (Medroxyprogesterone Acetate) 5 Mg Tablet 1 Tab PO DAILY Milk Of Magnesia (Magnesium Hydroxide) 2,400 Mg/10 Ml Oral.susp 2,400 Mg PO PRN QHS PRN Mag64 (Magnesium Chloride) 64 Mg Tablet.er 64 Mg PO DAILY Mag-Al Plus Xs Suspension (Mag Hydrox/Al Hydrox/Simeth) 30 Ml Oral.susp 15 Ml PO PRN AFTMEALHC PRN Tablet (Pnv Cmb#95/Ferrous Fumarate/Fa) 1 Each Tablet 1 Tab PO DAILY Tylenol (Acetaminophen) 325 Mg Tablet 650 Mg PO PRN Q4HRS PRN Levothyroxine Sodium 25 Mcg Tablet 25 Mcg PO DAILY06 Venlafaxine Hcl 37.5 Mg Tablet 37.5 Mg PO DAILY Aricept (Donepezil Hcl) 10 Mg Tablet 10 Mg PO DAILY Lorazepam 0.5 Mg Tablet 0.5 Mg PO QID Ranitidine Hcl 150 Mg Tablet 150 Mg PO BID Seroquel (Quetiapine Fumarate) 50 Mg Tablet 50 Mg PO BID Namenda (Memantine Hcl) 10 Mg Tablet 10 Mg PO BID Vitamin D3 (Cholecalciferol (Vitamin D3)) 1,000 Unit Tablet 1,000 Unit PO DAILY Multivitamins (Multivitamin) 1 Each Tablet 1 Tab PO DAILY Miralax (Polyethylene Glycol 3350) 119 Gm Powder 17 Gm PO PRN DAILY PRN Diagnosis: Problems: (1) Dementia with behavioral disturbance (2) Medical clearance for psychiatric admission PRISCILA GUEVARA MD Sep 15, 2016 21:02
--- NOTE | 2016-09-15 22:34 | PN ---
DATE: 09/14/2016 This is a late entry for 09/14/2016 and covers elements not covered in my initial note. Overall, the patient remains confused, but has not been sexually inappropriate or aggressive. His daughter and visited and were pleased with his progress. I met with him in his room. No CV, , pulmonary, eye, ENT system symptoms on review. He has a sense of humor, says things at times in jest that can come across as more serious than he intents for them to be. For example, he was asking me if I had $50,000 to lend him. When I did not quite respond right away, he said that "I was just joking," and seems to have a sense of humor despite his level of dementia. No CV, , pulmonary, eye, ENT system symptoms on review. Reliability poor. He has completed his course of doxycycline. MENTAL STATUS EXAM: Oriented to himself. Insight, judgment, recent and remote memory, attention, concentration, fund of knowledge poor, consistent with his diagnosis mentioned in my initial note. PLAN: Continue psychotropics mentioned in my initial note. Adjust further as clinically indicated. MAN Laina GUEVARA MD DR: WALESKA/rebecca JOB#: [id number] / [id number]
[2016-09-16 05:05] VITALS: BP 109/58
[2016-09-16] MEDS: LEVOTHYROXINE 25 MCG TABLET. PO SCH (05:14)
[2016-09-16] MEDS: MEMANTINE 10 MG TABLET. PO SCH (07:48)
[2016-09-16] MEDS: VENLAFAXINE XR 37.5 MG CAP.ER.24H. PO SCH (07:48)
[2016-09-16] MEDS: MEDROXYPROGESTERONE 5 MG PO SCH (07:48)
[2016-09-16] MEDS: QUEtiapine 50 MG TABLET. PO SCH (07:48)
[2016-09-16] MEDS: DONEPEZIL HCL 10 MG TABLET PO SCH (07:48)
[2016-09-16] MEDS: MAGNESIUM CHLORIDE ER 64 MG TABLET.ER PO SCH (07:48)
[2016-09-16] MEDS: CHOLECALCIFEROL (VITAMIN D3) 1,000 UNIT TABLET PO SCH (07:49)
[2016-09-16] MEDS: PRENATAL MULTIVITAMIN TABLET. PO SCH (07:50)
[2016-09-16] MEDS: LORAZEPAM 0.5 MG TABLET PO SCH (07:50)
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
--- NOTE | 2016-09-17 16:19 | PN ---
DATE: 09/15/2016 Psychiatric Progress Note This is late entry of 09/15/2016 cover elements not covered in my initial note. SUBJECTIVE: The patient was seen on rounds evening of 09/15/2016 and was also staffed at a treatment team meeting with the entire team. Reviewed the patient's history, diagnosis, progress. This note covers elements not covered in my initial note. Overall, the patient remains confused, forgetful, but no sexually inappropriate behaviors noted. REVIEW OF SYSTEMS: No CV, , eye, ENT or pulmonary system symptoms on review. Reliability poor. MENTAL STATUS EXAMINATION: Oriented to himself. Insight, judgment, recent and remote memory, attention, concentration, fund of knowledge poor, consistent with his diagnosis mentioned in my initial note. PLAN: Continue psychotropics mentioned in my initial note, possible discharge on 09/16/2016 back to retirement. MAN Laina GUEVARA MD DR: WALESKA/rebecca JOB#: [id number] / [id number]
== END 2016-09-16 11:22 | DRG 884 ==
LOC: ER 16:59 → GEROPSY 19:11
PROVIDERS: ADMIT Psychiatry & Neurology Psychiatry; ATTEND Psychiatry & Neurology Psychiatry
DX: F01.51 Vascular dementia, unspecified severity, with behavioral disturbance (principal); F02.81 Dementia in other diseases classified elsewhere, unspecified severity, with behavioral disturbance; N39.0 Urinary tract infection, site not specified; G30.9 Alzheimer's disease, unspecified; E03.9 Hypothyroidism, unspecified; F22 Delusional disorders; F32.9 Major depressive disorder, single episode, unspecified; F41.9 Anxiety disorder, unspecified; F63.9 Impulse disorder, unspecified; K21.9 Gastro-esophageal reflux disease without esophagitis; Z51.5 Encounter for palliative care; Z66 Do not resuscitate; Z91.81 History of falling; Z79.899 Other long term (current) drug therapy
CPT/HCPCS: 36415; 80053; 80061; 81001; 82306; 82607; 83036; 83540; 83550; 83735; 84436; 84443; 84480; 85027; 86592; 86593; 87086; 87186; 93005; 99285-25

== ENCOUNTER 2016-11-05 15:20 | Inpatient (IN) | payer MEDICARE, MEDICAID, OTHER ==
[~2016-11-05] VITALS: Ht 167.6 cm; Wt 66.2 kg
[~2016-11-05 15:20] MED LIST: ACET325T9 PO; CHOL10003 PO; DONE10TA61 PO; LEVO25TA4 PO; LORA0.5T PO; MAG30ORA2 PO; MAGN2400 PO; MAGN64TA6 PO; MEDR5TAB PO; MEMA10TA PO; METH29OI TP; MULT1TAB52 PO; PNV1TABL25 PO; POLY119P4 PO; QUET50TA5 PO; RANI150T2 PO; VENL37.56 PO
--- NOTE | 2016-11-05 15:33 | PHYS DOC ---
General Chief Complaint: PSYCH EVALUATION Stated Complaint: SBHU Eval Time Seen by MD: 15:24 Source: patient Exam Limitations: clinical condition Problems: History of Present Illness Initial Comments Pt is 81/M to ED from [facility] for medical clearance and [facility] admission. Pt apparently sent for MS change including physical and verbal outbursts. Unknown duration of these symptoms or prior interventions. In ED pt sexually inappropriate with female staff. Pt is otherwise cooperative and pleasant, no obvious hallucinations no combative behavior or outbursts. No new traumas or s/s infection noted, pt denies complaints is very alert but confused. Timing/Duration: unsure Severity: moderate Modifying Factors: improves with other Associated Symptoms: denies symptoms Allergies: Coded Allergies: No Known Drug Allergies (Unverified , 09/03/16) Past Medical History Medical History: other (frequent falls, gait disturbance, GERD with esophagitis , anxiety, dementia, hypothyroid) Surgical History: noncontributory Social History Smoker: non-smoker Alcohol: none Drugs: none Review of Systems All Other Systems: Reviewed and Negative (dementia pt, accurate ROS unobtainable) Physical Exam General Appearance: no apparent distress, thin Ear, Nose, Throat: hearing grossly normal, normal ENT inspection, normal pharynx Neck: non-tender, supple Respiratory: normal breath sounds, no respiratory distress Cardiovascular: normal peripheral pulses, regular rate, rhythm Gastrointestinal: non tender, soft Back: no CVA tenderness, no vertebral tenderness Extremities: non-tender, normal inspection, no pedal edema 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 PHYSICIAN: DANISH JONES DO REASON: AMS, h/o nontraumatic subdural hematoma PROCEDURE: CT HEAD WO CONTRAST CT of the head without contrast, 11/05/2016: History: Altered mental status, previous subdural hematoma No previous studies are available at this time for comparison purposes. There is moderate cerebral atrophy. The ventricles are mildly enlarged on a compensatory basis. There is no shift of the midline structures. There is no evidence of acute intracranial hemorrhage or mass effect. There is a calcification at the junction of the shana and middle cerebellar peduncle on the right compatible with an old infectious or ischemic insult. There is partial opacification of the ethmoid sinuses bilaterally. IMPRESSION: 1. Chronic findings as described above. 2. No acute intracranial abnormality is detected. PQRS Compliance Statement: One or more of the following individualized dose reduction techniques were utilized for this examination: 1. Automated exposure control 2. Adjustment of the mA and/or kV according to patient size 3. Use of iterative reconstruction technique DICTATED AND SIGNED BY: FAUSTO EWING MD DATE: 11/05/16 3653 CC: JOCELYNE WOOD MD; DANISH JONES DO ~ UA pending, CBC/CMP unremarkable. Pt resting comfortably no new/progressive symptoms. Medically cleared for [facility] admission Dr Chang is accepting. Departure Time of Disposition: 16:25 Disposition: ADMITTED INPATIENT Diagnosis: Dementia with BD Condition: STABLE Additional Instructions: [facility] admission Dr Chang is accepting. DANISH JONES DO November 05, 2016 15:33
[2016-11-05 15:59] LABS: BASO % 1 % (0-3); EOS # 0.3 x10^3/uL (0.0-0.7); EOS % 6 % (0-3); HEMOGLOBIN 12.4 g/dL (13.0-17.5); LYMPH # 1.4 x10^3/uL (1.0-4.8); LYMPH % 28 % (24-48); MEAN CORPUSCULAR HEMOGLOBIN 32 pg (25-35); MEAN CORPUSCULAR HGB CONC 34 g/dL (31-37); MEAN CORPUSCULAR VOLUME 92 fL (79-100); MONO # 0.4 x10^3/uL (0.0-1.1); MONO % 9 % (0-9); NEUT # 2.7 x10^3uL (1.8-7.7); NEUT % 56 % (31-73); PLATELET COUNT 94 x10^3/uL (140-400); RED BLOOD COUNT 3.91 x10^6/uL (4.30-5.70); WHITE BLOOD COUNT 4.8 x10^3/uL (4.0-11.0)
--- NOTE | 2016-11-05 16:00 | RAD ---
CT of the head without contrast, 11/05/2016: History: Altered mental status, previous subdural hematoma No previous studies are available at this time for comparison purposes. There is moderate cerebral atrophy. The ventricles are mildly enlarged on a compensatory basis. There is no shift of the midline structures. There is no evidence of acute intracranial hemorrhage or mass effect. There is a calcification at the junction of the shana and middle cerebellar peduncle on the right compatible with an old infectious or ischemic insult. There is partial opacification of the ethmoid sinuses bilaterally. IMPRESSION: 1. Chronic findings as described above. 2. No acute intracranial abnormality is detected. PQRS Compliance Statement: One or more of the following individualized dose reduction techniques were utilized for this examination: 1. Automated exposure control 2. Adjustment of the mA and/or kV according to patient size 3. Use of iterative reconstruction technique
[2016-11-05 16:12] LABS: ALBUMIN 3.4 g/dL (3.4-5.0); ALBUMIN/GLOBULIN RATIO 0.9 (1.0-1.7); CALCIUM 9.1 mg/dL (8.5-10.1); CREATININE 1.3 mg/dL (0.7-1.3); GFR 53.3; MAGNESIUM 1.7 mg/dL (1.8-2.4); POTASSIUM 3.8 mmol/L (3.5-5.1); TOTAL BILIRUBIN 0.3 mg/dL (0.2-1.0); TOTAL PROTEIN 7.3 g/dL (6.4-8.2)
[2016-11-05 16:29] LABS: BILIRUBIN,URINE NEG (NEG); CLARITY,URINE TURBID; COLOR,URINE YELLOW; GLUCOSE,URINE NEG (NEG); NITRITE,URINE POS (NEG); UROBILINOGEN,URINE 0.2 mg/dL (0.2 mg/dL)
[2016-11-05 16:30] LABS: BACTERIA,URINE 0 /HPF (0-FEW); SQUAMOUS EPITHELIAL CELL,UR OCC /LPF; WBC,URINE >40 /HPF (0-4)
[2016-11-05] MEDS ORDERED: CETI10TA16 PO (17:29)
[2016-11-05] MEDS ORDERED: PARO10TA57 PO (17:29)
[2016-11-05] MEDS ORDERED: OLAN5TAB5 PO (17:35)
[2016-11-05] MEDS ORDERED: MAG HYDROX/AL HYDROX/SIMETH 30 ML ORAL.SUSP PO PRN (17:45)
[2016-11-05] MEDS ORDERED: METHYL SALICYLATE/MENTHOL TOPICAL OINTMENT 29GM TUBE. TP PRN (17:45)
[2016-11-05] MEDS ORDERED: MAGNESIUM HYDROXIDE 2,400 MG/30 ML ORAL.SUSP. PO PRN (18:00)
[2016-11-05 18:09] VITALS: BP 132/63
[2016-11-05] MEDS: LORazepam 0.5 MG TABLET PO SCH ×3 (19:58→23:48)
[2016-11-05] MEDS: FAMOTIDINE 20 MG TABLET PO SCH (19:58)
[2016-11-05] MEDS: MEMANTINE 10 MG TABLET. PO SCH (19:58)
[2016-11-05] MEDS: QUEtiapine 50 MG TABLET. PO SCH (19:58)
[2016-11-05] MEDS: ACETAMINOPHEN 325 MG TABLET PO PRN (20:25)
--- NOTE | 2016-11-05 21:27 | PDOC ---
Exam West Demential Exam: West Note: Please also refer to the separate dictated note~for this date of service dictated separately.~Patient seen individually. Discussed the patient with Nursing staff reviewed the chart.~Reviewed interim history and current functioning. Reviewed vital signs,~Labs/ Radiology~and current medications noted below. Continue current treatment with the changes noted in the dictated addendum note Assessment: Vital Signs: Vital Signs Date Time Temp Pulse Resp B/P (MAP) Pulse Ox O2 Delivery O2 Flow Rate FiO2 11/05/16 18:09 98.1 62 18 132/63 (86) 98 Room Air Labs: Laboratory Tests Test 11/05/16 15:35 White Blood Count 4.8 x10^3/uL (4.0-11.0) Red Blood Count 3.91 x10^6/uL (4.30-5.70) L Hemoglobin 12.4 g/dL (13.0-17.5) L Hematocrit 36.0 % (39.0-53.0) L Mean Corpuscular Volume 92 fL (79-100) Mean Corpuscular Hemoglobin 32 pg (25-35) Mean Corpuscular Hemoglobin Concent 34 g/dL (31-37) Red Cell Distribution Width 15.0 % (11.5-14.5) H Platelet Count 94 x10^3/uL (140-400) L Neutrophils (%) (Auto) 56 % (31-73) Lymphocytes (%) (Auto) 28 % (24-48) Monocytes (%) (Auto) 9 % (0-9) Eosinophils (%) (Auto) 6 % (0-3) H Basophils (%) (Auto) 1 % (0-3) Neutrophils # (Auto) 2.7 x10^3uL (1.8-7.7) Lymphocytes # (Auto) 1.4 x10^3/uL (1.0-4.8) Monocytes # (Auto) 0.4 x10^3/uL (0.0-1.1) Eosinophils # (Auto) 0.3 x10^3/uL (0.0-0.7) Basophils # (Auto) 0.0 x10^3/uL (0.0-0.2) Urine Collection Type Unknown Urine Color Yellow Urine Clarity Turbid Urine pH 5.5 Urine Specific [place] >=1.030 Urine Protein Trace (NEG-TRACE) Urine Glucose (UA) Neg mg/dL (NEG) Urine Ketones (Stick) Neg mg/dL (NEG) Urine Blood Trace (NEG) Urine Nitrite Pos (NEG) Urine Bilirubin Neg (NEG) Urine Urobilinogen Dipstick 0.2 mg/dL (0.2 mg/dL) Urine Leukocyte Esterase Large (NEG) Urine RBC 3-5 /HPF (0-2) Urine WBC >40 /HPF (0-4) Urine Squamous Epithelial Cells Occ /LPF Urine Bacteria 0 /HPF (0-FEW) Sodium Level 142 mmol/L (136-145) Potassium Level 3.8 mmol/L (3.5-5.1) Chloride Level 106 mmol/L (98-107) Carbon Dioxide Level 27 mmol/L (21-32) Anion Gap 9 (6-14) Blood Urea Nitrogen 24 mg/dL (8-26) Creatinine 1.3 mg/dL (0.7-1.3) Estimated GFR (Cockcroft-Gault) 53.3 BUN/Creatinine Ratio 18 (6-20) Glucose Level 97 mg/dL (70-99) Calcium Level 9.1 mg/dL (8.5-10.1) Magnesium Level 1.7 mg/dL (1.8-2.4) L Total Bilirubin 0.3 mg/dL (0.2-1.0) Aspartate Amino Transferase (AST) 33 U/L (15-37) Alanine Aminotransferase (ALT) 46 U/L (16-63) Alkaline Phosphatase 146 U/L (46-116) H Total Protein 7.3 g/dL (6.4-8.2) Albumin 3.4 g/dL (3.4-5.0) Albumin/Globulin Ratio 0.9 (1.0-1.7) L Current Medications: Meds: Current Medications Acetaminophen (Tylenol) 650 mg PRN Q4HRS PRN PO PAIN / TEMP Last administered on 11/05/16t 20:25; Start 11/05/16 at 17:45 Cetirizine HCl (ZyrTEC) 10 mg DAILY PO ; Start 11/06/16 at 09:00 Vitamin D (Vitamin D3) 1,000 unit DAILY PO ; Start 11/06/16 at 09:00 Levothyroxine Sodium (Synthroid) 25 mcg DAILY06 PO ; Start 11/06/16 at 06:00 Al Hydroxide/Mg Hydroxide (Mylanta Plus Xs) 15 ml PRN AFTMEALHC PRN PO DYSPEPSIA; Start 11/05/16 at 17:45 Medroxyprogesterone Acetate (Provera) 5 mg DAILY PO ; Start 11/06/16 at 09:00 Multi-Ingredient Ointment (Analgesic [place]) 1 carol ann PRN QID PRN TP MUSCLE PAIN; Start 11/05/16 at 17:45 Polyethylene Glycol (miraLAX) 17 gm PRN DAILY PRN PO CONSTIPATION; Start at 09:00 Magnesium Chloride (Mag Delay) 64 mg DAILY PO ; Start 11/06/16 at 09:00 Magnesium Hydroxide (Milk Of Magnesia) 2,400 mg PRN QHS PRN PO CONSTIPATION; Start 11/05/16 at 18:00 Prenat Multivit/ Tractor Crane Operator/Iron/Folic Ac (Multivitamin ) 1 tab DAILYWLUN PO ; Start 11/06/16 at 12:00 Famotidine (Pepcid) 20 mg BID PO Last administered on 11/05/16 19:58; Start at 21:00 Donepezil HCl (Aricept) 10 mg DAILY PO ; Start 11/06/16 at 09:00 Lorazepam (Ativan) 0.5 mg TID PO Last administered on 11/05/16 19:58; Start at 21:00 Memantine (Namenda) 10 mg BID PO Last administered on 11/05/16 19:58; Start at 21:00 Olanzapine (ZyPREXA ZYDIS) 2.5 mg PRN Q2HR PRN PO ANXIETY / AGITATION Last administered on 11/05/16 20:25; Start 11/05/16 at 17:45 Paroxetine HCl (Paxil) 10 mg DAILY PO ; Start 11/06/16 at 09:00 Quetiapine Fumarate (SEROquel) 50 mg BID PO Last administered on 11/05/16 19: 58; Start 11/05/16 at 21:00 Active Scripts Active Reported Zyprexa Zydis (Olanzapine) 5 Mg Tab.rapdis 2.5 Mg PO PRN Q2HR PRN Paxil (Paroxetine Hcl) 10 Mg Tablet 10 Mg PO DAILY Cetirizine Hcl 10 Mg Tablet 10 Mg PO DAILY Analgesic [place] (Methyl Salicylate/Menthol) 29 Gm Oint...g. 1 [place] TP PRN QID PRN Provera (Medroxyprogesterone Acetate) 5 Mg Tablet 1 Tab PO DAILY Milk Of Magnesia (Magnesium Hydroxide) 2,400 Mg/10 Ml Oral.susp 2,400 Mg PO PRN QHS PRN Mag64 (Magnesium Chloride) 64 Mg Tablet.er 64 Mg PO DAILY Mag-Al Plus Xs Suspension (Mag Hydrox/Al Hydrox/Simeth) 30 Ml Oral.susp 15 Ml PO PRN AFTMEALHC PRN Tablet (Pnv Cmb#95/Ferrous Fumarate/Fa) 1 Each Tablet 1 Tab PO DAILYWLUN Tylenol (Acetaminophen) 325 Mg Tablet 650 Mg PO PRN Q4HRS PRN Levothyroxine Sodium 25 Mcg Tablet 25 Mcg PO DAILY06 Aricept (Donepezil Hcl) 10 Mg Tablet 10 Mg PO DAILY Lorazepam 0.5 Mg Tablet 0.5 Mg PO TID Ranitidine Hcl 150 Mg Tablet 150 Mg PO BID Seroquel (Quetiapine Fumarate) 50 Mg Tablet 50 Mg PO BID Namenda (Memantine Hcl) 10 Mg Tablet 10 Mg PO BID Vitamin D3 (Cholecalciferol (Vitamin D3)) 1,000 Unit Tablet 1,000 Unit PO DAILY Miralax (Polyethylene Glycol 3350) 119 Gm Powder 17 Gm PO PRN DAILY PRN PRISCILA GUEVARA MD November 05, 2016 21:27
--- NOTE | 2016-11-06 01:37 | EKG ---
[address] [address] Test Date: 2016-11-05 Test Time: 16:14:09 Pat Name: CARMEN MATTHEWS Department: Room: [facility] Gender: M Internal Auditor: [place] : 1935 Requested By: DANISH JONES Order Number: [id number] Reading MD: Tommy Mujica Measurements Intervals [place] Rate: 63 P: 144 IN: 212 QRS: 127 QRSD: 86 T: 111 QT: 420 QTc: 433 Interpretive Statements SINUS RHYTHM LIMB LEAD MISPLACEMENT Electronically Signed On 11-09-2016 9:44:42 CDT by Tommy Mujica
[2016-11-06] MEDS: LEVOTHYROXINE 25 MCG TABLET. PO SCH (05:44)
[2016-11-06 06:10] VITALS: BP 128/69
--- NOTE | 2016-11-06 06:35 | ACF ---
Admission Criteria Forms PSYCHIATRIC DISORDERS Clinical Indications for Inpatient Care (Place 'X' for any and all applicable criteria): Ongoing inpatient care may be needed for ANY ONE of the following(1)(2)(3)(4)(6) (7)(8): [ ]I. Danger to self or others not manageable at lower level of care. [ ]II. Grave disability (eg, inability to perform self care necessary at lower level of care) [ ]III. Agitation or inappropriate behavior interfering with care for primary condition (eg, attempting to discontinue lines or drains prematurely, unable to cooperate with respiratory care) [X]IV. Severe disability or disorder indicated by ALL of the following: [X]a) Severe behavioral health disorder-related symptoms or condition indicated by ANY ONE of the following: [ ]i) Severe problem with cognition, memory, judgment, or impulse control [X]ii) Severe clinical manifestations (eg, hallucinations, delusions, other acute psychotic symptoms, darion, extreme agitation or anxiety) [X]b) Patient management at lower level of care is not feasible until acute intervention or modification is initiated. Extended stay beyond goal length of stay for the primary condition may be indicated when ANY ONE of the following is present: (1)(2)(3)(4): [ ]a) Patient is a danger to self or others and not manageable at lower level of care. [ ]b) Behavior crisis management, including physical or chemical restraints, is required and is not available at a lower level of care. [ ]c) Behavioral symptoms (e.g., agitation, somnolence, inappropriate behavior) are present, and are not manageable at a lower level of care. [ ]d) Patient cannot understand follow-up treatment and crisis plan. [ ]e) Provider and supports are not sufficiently available at lower level of care. [ ]f) Patient cannot participate (e.g., verify absence of plan for harm) and is in needed of monitoring. The original [facility] [employer] content created by [facility] [employer] has been revised. The portions of the content which have been revised are identified through the use of italic text or in bold, and [facility] has neither reviewed nor approved the modified material. All other unmodified content is copyright [facility] [employer]. Please see references footnoted in the original [facility] edition 2016 Admission Criteria Met?: Yes MARIA ELENA RODGERS November 06, 2016 06:35
[2016-11-06] MEDS: DONEPEZIL HCL 10 MG TABLET PO SCH (08:59)
[2016-11-06] MEDS ORDERED: POLYETHYLENE GLYCOL 3350 17 GM PACKET. PO PRN (09:00)
[2016-11-06] MEDS: FAMOTIDINE 20 MG TABLET PO SCH ×2 (09:01→20:55)
[2016-11-06] MEDS: LORazepam 0.5 MG TABLET PO SCH ×3 (09:01→20:55)
[2016-11-06] MEDS: MEMANTINE 10 MG TABLET. PO SCH ×2 (09:01→20:55)
[2016-11-06] MEDS: medroxyPROGESTERone 5 MG TABLET PO SCH (09:01)
[2016-11-06] MEDS: PARoxetine 10 MG TABLET PO SCH (09:01)
[2016-11-06] MEDS: MAGNESIUM CHLORIDE ER 64 MG TABLET.ER PO SCH (09:01)
[2016-11-06] MEDS: CHOLECALCIFEROL (VITAMIN D3) 1,000 UNIT TABLET PO SCH (09:02)
[2016-11-06] MEDS: CETIRIZINE HCL 10 MG TABLET PO SCH (09:02)
[2016-11-06] MEDS: QUEtiapine 50 MG TABLET. PO SCH ×2 (09:02→20:55)
[2016-11-06] MEDS: PRENATAL MULTIVITAMIN TABLET. PO SCH (13:46)
[2016-11-06 15:10] LABS: T3 TOTAL 75 ng/dL (71-180); THYROXINE 5.4 ug/dL (4.5-12.0)
[2016-11-06 16:01] VITALS: BP 117/63
--- NOTE | 2016-11-06 20:11 | HP ---
ADMIT DATE: 11/05/2016 PSYCHIATRIC ADMISSION HISTORY/EVALUATION This is a late entry of 11/05/2016 covers elements not covered in my initial note. IDENTIFYING DATA: The patient is a 81-year-old male who returns back to us from [facility] referred by Dr. Wells, his psychiatrist and Dr. Gaines primary care physician after he "shoved the female" having outbursts of yelling, verbally aggressive, delusional and confused. He has failed prior inpatient psychiatric hospitalization, but behaviors had been deemed to be dangerous, out of control has failed outpatient psychiatric interventions, thus resulting in this referral back to us. CHIEF COMPLAINT: "I don't do that." The patient responded after asked him and reminded him about the problems prompting admission. HISTORY OF PRESENT ILLNESS: The patient has a history of dementia, Alzheimer's vascular type. He has been at [facility] for some time, but over the last few days, he has been getting increasingly delusional, agitated with increased mood lability worsening confusion, sleep and appetite changes. No clear suicidal or homicidal ideation. No clear history of bipolar disorder. PAST PSYCHIATRIC HISTORY: As above. DRUG ALLERGIES: Negative. CODE STATUS: DNR. MEDICAL HISTORY: GERD, hypothyroidism, weakness, falls, history of subdural hematoma, recurrent UTI. His diet regular, takes his medications whole. UA is positive blood culture is awaited. CURRENT PSYCHOTROPICS: Aricept 10 mg a day, Ativan 0.5 t.i.d., Namenda 10 b.i.d., Paxil 10 mg a day, Seroquel 50 b.i.d., Zyprexa p.r.n. FAMILY HISTORY: Noncontributory. SOCIAL HISTORY: No history of alcohol, drug abuse, physical, sexual or elder abuse history is noted. He is not known to be a perpetrator. MENTAL STATUS EXAMINATION: The patient was seen individually evening of 11/05/2016. He is oriented to himself. Insight, judgment, recent and remote memory, attention, concentration, fund of knowledge poor, consistent with his diagnosis. LABORATORY DATA: Reviewed. This note covers elements not covered in my initial note. IMPRESSION: Major neurocognitive disorder, Alzheimer, vascular with depression, delusion, behavioral disturbance; anxiety disorder, unspecified; impulse control disorder, unspecified; rule out urinary tract infection. PLAN: Admit to the geropsychiatry unit at [facility]. I will see the patient daily individually from a psychiatric standpoint and medical followup per Dr. Petit/Dr. Fletcher. Continue current psychotropics. Observe the patient's baseline. Make further adjustments as clinically indicated. PRISCILA GUEVARA MD DR: WALESKA/rebecca JOB#: [id number] / [id number]
--- NOTE | 2016-11-06 22:55 | PDOC ---
Exam West Demential Exam: West Note: Please also refer to the separate dictated note~for this date of service dictated separately.~Patient seen individually. Discussed the patient with Nursing staff reviewed the chart.~Reviewed interim history and current functioning. Reviewed vital signs,~Labs/ Radiology~and current medications noted below. Continue current treatment with the changes noted in the dictated addendum note Assessment: Vital Signs: Vital Signs Date Time Temp Pulse Resp B/P (MAP) Pulse Ox O2 Delivery O2 Flow Rate FiO2 11/06/16 16:01 97.2 65 19 117/63 (81) 98 11/05/16 18:09 Room Air I&O Intake and Output 11/06/16 07:00 Intake Total 600 ml Balance 600 ml Intake Oral 600 ml Current Medications: Meds: Current Medications Acetaminophen (Tylenol) 650 mg PRN Q4HRS PRN PO PAIN / TEMP Last administered on 11/05/16 20:25; Start 11/05/16 at 17:45 Cetirizine HCl (ZyrTEC) 10 mg DAILY PO Last administered on 11/06/16 09:02; Start 11/06/16 at 09:00 Vitamin D (Vitamin D3) 1,000 unit DAILY PO Last administered on 11/06/16 09:02 ; Start 11/06/16 at 09:00 Levothyroxine Sodium (Synthroid) 25 mcg DAILY06 PO Last administered on 05:44; Start 11/06/16 at 06:00 Al Hydroxide/Mg Hydroxide (Mylanta Plus Xs) 15 ml PRN AFTMEALHC PRN PO DYSPEPSIA; Start 11/05/16 at 17:45 Medroxyprogesterone Acetate (Provera) 5 mg DAILY PO Last administered on 09:01; Start 11/06/16 at 09:00 Multi-Ingredient Ointment (Analgesic [place]) 1 carol ann PRN QID PRN TP MUSCLE PAIN; Start 11/05/16 at 17:45 Polyethylene Glycol (miraLAX) 17 gm PRN DAILY PRN PO CONSTIPATION; Start at 09:00 Magnesium Chloride (Mag Delay) 64 mg DAILY PO Last administered on 11/06/16 09 :01; Start 11/06/16 at 09:00 Magnesium Hydroxide (Milk Of Magnesia) 2,400 mg PRN QHS PRN PO CONSTIPATION; Start 11/05/16 at 18:00 Prenat Multivit/ Financial Data Analyst/Iron/Folic Ac (Multivitamin ) 1 tab DAILYWLUN PO Last administered on 11/06/16 13:46; Start 11/06/16 at 12:00 Famotidine (Pepcid) 20 mg BID PO Last administered on 11/06/16 20:55; Start at 21:00 Donepezil HCl (Aricept) 10 mg DAILY PO Last administered on 11/06/16 08:59; Start 11/06/16 at 09:00 Lorazepam (Ativan) 0.5 mg TID PO Last administered on 11/06/16 20:55; Start at 21:00 Memantine (Namenda) 10 mg BID PO Last administered on 11/06/16 20:55; Start at 21:00 Olanzapine (ZyPREXA ZYDIS) 2.5 mg PRN Q2HR PRN PO ANXIETY / AGITATION Last administered on 11/05/16 20:25; Start 11/05/16 at 17:45 Paroxetine HCl (Paxil) 10 mg DAILY PO Last administered on 11/06/16 09:01; Start 11/06/16 at 09:00 Quetiapine Fumarate (SEROquel) 50 mg BID PO Last administered on 11/06/16 20: 55; Start 11/05/16 at 21:00 Active Scripts Active Reported Zyprexa Zydis (Olanzapine) 5 Mg Tab.rapdis 2.5 Mg PO PRN Q2HR PRN Paxil (Paroxetine Hcl) 10 Mg Tablet 10 Mg PO DAILY Cetirizine Hcl 10 Mg Tablet 10 Mg PO DAILY Analgesic [place] (Methyl Salicylate/Menthol) 29 Gm Oint...g. 1 Carol Ann TP PRN QID PRN Provera (Medroxyprogesterone Acetate) 5 Mg Tablet 1 Tab PO DAILY Milk Of Magnesia (Magnesium Hydroxide) 2,400 Mg/10 Ml Oral.susp 2,400 Mg PO PRN QHS PRN Mag64 (Magnesium Chloride) 64 Mg Tablet.er 64 Mg PO DAILY Mag-Al Plus Xs Suspension (Mag Hydrox/Al Hydrox/Simeth) 30 Ml Oral.susp 15 Ml PO PRN AFTMEALHC PRN Tablet (Pnv Cmb#95/Ferrous Fumarate/Fa) 1 Each Tablet 1 Tab PO DAILYWLUN Tylenol (Acetaminophen) 325 Mg Tablet 650 Mg PO PRN Q4HRS PRN Levothyroxine Sodium 25 Mcg Tablet 25 Mcg PO DAILY06 Aricept (Donepezil Hcl) 10 Mg Tablet 10 Mg PO DAILY Lorazepam 0.5 Mg Tablet 0.5 Mg PO TID Ranitidine Hcl 150 Mg Tablet 150 Mg PO BID Seroquel (Quetiapine Fumarate) 50 Mg Tablet 50 Mg PO BID Namenda (Memantine Hcl) 10 Mg Tablet 10 Mg PO BID Vitamin D3 (Cholecalciferol (Vitamin D3)) 1,000 Unit Tablet 1,000 Unit PO DAILY Miralax (Polyethylene Glycol 3350) 119 Gm Powder 17 Gm PO PRN DAILY PRN Diagnosis: Problems: (1) Dementia with behavioral disturbance (2) Anxiety disorder (3) Impulse control disorder (4) Dementia, vascular, with delusions (5) Dementia, vascular, with depression (6) Dementia in Alzheimer's disease with delusions (7) Dementia in Alzheimer's disease with depression PRISCILA GUEVARA MD November 06, 2016 22:55
[2016-11-07 00:06] LABS: HEMOGLOBIN A1C 4.7 % (4.8-5.6)
[2016-11-07] MEDS: LEVOTHYROXINE 25 MCG TABLET. PO SCH (05:23)
[2016-11-07 06:05] VITALS: BP 121/66
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
--- NOTE | 2016-11-07 07:54 | CONS ---
DATE OF CONSULTATION: 11/06/2016 HISTORY OF PRESENT ILLNESS: The patient is a 81-year-old male patient, a resident at [facility] who was apparently admitted to [facility] on account of being aggressive, threatening staff, wandering, exit seeking, anxious, tearful and paranoid, delusional; however, he is compliant to his medication. Apparently, he was threatening his roommates and cut hand from pulling on the door and was admitted for inpatient. All this behaviors on the background of major neurocognitive disorder, Alzheimer type and he is here for inpatient psychiatric stabilization. PAST MEDICAL HISTORY: Significant for gastroesophageal reflux disease, hypothyroidism, subdural hemorrhage, and recurrent UTIs. PAST PSYCHIATRIC HISTORY: Significant for anxiety as well as dementia. PAST SURGICAL HISTORY: Unremarkable. ALLERGIES: He has no known drug allergies. MEDICATIONS: He is currently on following medications: He is on acetaminophen 650 mg every 4 hours, cetirizine 10 mg once a day, cholecalciferol 1000 international units once a day, Aricept 10 mg once a day, levothyroxine sodium 25 mcg once a day, lorazepam 0.5 mg 3 times a day, Mylanta 15 mL after meals and as needed, magnesium chloride for Mag-Delay 64 mg once a day, magnesium hydroxide for milk of magnesia 30 mL p.o. daily p.r.n. for constipation. He is on medroxyprogesterone acetate Provera 5 mg once a day, Namenda 10 mg twice a day, olanzapine for Zyprexa Zydis 2.5 mg every 2 hours as needed, paroxetine 10 mg once a day and polyethylene glycol 17 grams in 8 ounces of water daily p.r.n. for constipation, Seroquel 50 mg twice a day, ranitidine 150 mg twice a day. REVIEW OF SYSTEMS: As per history of present illness. FAMILY HISTORY: Unremarkable. SOCIAL HISTORY: He is a assisted resident. He does not smoke, drink alcohol or use any recreational drugs. PHYSICAL EXAMINATION: GENERAL: When I examined him this afternoon, he was resting flat, comfortably in bed, in no apparent respiratory distress, slightly pale, but no jaundice, cyanosis, lymphadenopathy, or thyromegaly. No jugular venous distension. No limb edema. VITAL SIGNS: His heart rate was 65, blood pressure was 117/63, temperature was 97.2, respiratory rate was 19 and oxygen saturation was 98% on room air. HEENT: Showed normocephalic, atraumatic. NECK: Supple. HEART: Showed normal first and second heart sounds with no gallop, rub or murmur. CHEST: Clear to auscultation. No crepitation or rhonchi. ABDOMEN: Slightly distended, soft, nontender. NEUROLOGIC: He was awake, alert, but confused. All his cranial nerves are intact. EXTREMITIES: He moves extremities without difficulty. He ambulates without assistance or assistive devices. LABORATORY DATA: As of yesterday showed a white cell count 4800, hemoglobin 12.4, hematocrit 36, MCV 92, and platelet count of 94,000. His chemistry showed that his serum sodium 142, potassium 3.8, chloride 106, bicarbonate 27, anion gap of 9, BUN 24, creatinine 1.3, estimated GFR was 53 mL per minute. His glucose was 97. Calcium was 9.1, magnesium was 1.7. Total bilirubin, AST, ALT were normal. Alkaline phosphatase was slightly elevated. Total protein was 7.3, albumin 3.4. Serum iron was 88, total iron binding capacity was 219 and iron saturation was 13. Triglycerides was 198, total cholesterol was 208, LDL cholesterol was 130, VLDL was 39, and HDL cholesterol was 39 and the ratio was 5. His 25-hydroxy vitamin D was 35.7. TSH was normal at 1.23 and total T4 was 5.4 and total T3 was 75. His urinalysis showed that the urine was yellow, turbid with a pH of 5.5, specific gravity of more than 1.030, was trace of protein, negative for glucose, negative for ketones. There was trace of blood, positive for nitrite, negative for bilirubin. There was large amount of leukocyte esterase, 3-5 rbc's, more than 40 wbc's, and no bacteria. His urine culture has grown more than 100,000 colony-forming units per mL of gram-negative staph species that is sensitive to gentamicin, nitrofurantoin, rifampin, tetracycline, trimethoprim, sulfamethoxazole and vancomycin. He has had a CT scan of the head, which showed that there is moderate cerebral atrophy. The ventricles are mildly enlarged on a compensatory basis. There is no shift of the midline structures. There is no evidence of acute intracranial hemorrhage or mass effect. There is a calcification at the junction of the bones and middle cerebellar peduncle on the right, compatible with an old infectious or ischemic insult. There is partial opacification of the ethmoid sinuses bilaterally and the impression that this is a chronic finding as described above with no acute intracranial abnormality as detected. IMPRESSION: In summary, this is a 81-year-old male patient who was admitted on the account of being agitated, delusional, threatened his roommate and cut hand from pulling on door. He was also wandering, exit seeking, anxious, tearful and paranoid. However, he was compliant with medications, all of this on a background of major neurocognitive disorder, Alzheimer type. He is here for inpatient psychiatric stabilization. He has multiple medical problems including hypothyroidism, gastroesophageal reflux disease and history of subdural hematoma and mixed hyperlipidemia. On his lab work that was done this morning, his urine culture showed growth of more than 100,000 colony-forming units per mL of coagulase-negative staph, sensitive to vancomycin, trimethoprim, sulfamethoxazole and tetracycline. PLAN: My plan is to start him on antibiotics in the form of trimethoprim, sulfamethoxazole and otherwise he seems to be stable. All his vital signs are normal and his lab work other than his hyperlipidemia are within acceptable range. Thank you, Dr. Chang, for allowing me to participate in the care of this patient. MYCHAL PYLE MD DR: NATHAN/rebecca JOB#: [id number] / [id number]
[2016-11-07] MEDS: DONEPEZIL HCL 10 MG TABLET PO SCH (08:48)
[2016-11-07] MEDS: CETIRIZINE HCL 10 MG TABLET PO SCH (08:49)
[2016-11-07] MEDS: FAMOTIDINE 20 MG TABLET PO SCH ×2 (08:49→20:54)
[2016-11-07] MEDS: MEMANTINE 10 MG TABLET. PO SCH ×2 (08:49→20:53)
[2016-11-07] MEDS: PARoxetine 10 MG TABLET PO SCH (08:49)
[2016-11-07] MEDS: MAGNESIUM CHLORIDE ER 64 MG TABLET.ER PO SCH (08:49)
[2016-11-07] MEDS: QUEtiapine 50 MG TABLET. PO SCH ×2 (08:49→20:53)
[2016-11-07] MEDS: medroxyPROGESTERone 5 MG TABLET PO SCH (08:49)
[2016-11-07] MEDS: CHOLECALCIFEROL (VITAMIN D3) 1,000 UNIT TABLET PO SCH (08:49)
[2016-11-07] MEDS: PRENATAL MULTIVITAMIN TABLET. PO SCH (08:50)
[2016-11-07] MEDS: LORazepam 0.5 MG TABLET PO SCH ×3 (08:50→20:54)
[2016-11-07 16:31] VITALS: BP 101/63
--- NOTE | 2016-11-07 21:13 | PDOC ---
Exam West Demential Exam: West Note: Please also refer to the separate dictated note~for this date of service dictated separately.~Patient seen individually. Discussed the patient with Nursing staff reviewed the chart.~Reviewed interim history and current functioning. Reviewed vital signs,~Labs/ Radiology~and current medications noted below. Continue current treatment with the changes noted in the dictated addendum note Assessment: Vital Signs: Vital Signs Date Time Temp Pulse Resp B/P (MAP) Pulse Ox O2 Delivery O2 Flow Rate FiO2 11/07/16 16:31 97.9 73 18 101/63 (76) 97 Room Air I&O Intake and Output 11/07/16 07:00 Intake Total 960 ml Balance 960 ml Intake Oral 960 ml Current Medications: Meds: Current Medications Acetaminophen (Tylenol) 650 mg PRN Q4HRS PRN PO PAIN / TEMP Last administered on 11/05/16 20:25; Start 11/05/16 at 17:45 Cetirizine HCl (ZyrTEC) 10 mg DAILY PO Last administered on 11/07/16 08:49; Start 11/06/16 at 09:00 Vitamin D (Vitamin D3) 1,000 unit DAILY PO Last administered on 11/07/16 08:49 ; Start 11/06/16 at 09:00 Levothyroxine Sodium (Synthroid) 25 mcg DAILY06 PO Last administered on 05:23; Start 11/06/16 at 06:00 Al Hydroxide/Mg Hydroxide (Mylanta Plus Xs) 15 ml PRN AFTMEALHC PRN PO DYSPEPSIA; Start 11/05/16 at 17:45 Medroxyprogesterone Acetate (Provera) 5 mg DAILY PO Last administered on 08:49; Start 11/06/16 at 09:00 Multi-Ingredient Ointment (Analgesic [place]) 1 carol ann PRN QID PRN TP MUSCLE PAIN; Start 11/05/16 at 17:45 Polyethylene Glycol (miraLAX) 17 gm PRN DAILY PRN PO CONSTIPATION; Start at 09:00 Magnesium Chloride (Mag Delay) 64 mg DAILY PO Last administered on 11/07/16 08 :49; Start 11/06/16 at 09:00 Magnesium Hydroxide (Milk Of Magnesia) 2,400 mg PRN QHS PRN PO CONSTIPATION; Start 11/05/16 at 18:00 Prenat Multivit/ [place] [employer]/Iron/Folic Ac (Multivitamin ) 1 tab DAILYWLUN PO Last administered on 11/07/16 08:50; Start 11/06/16 at 12:00 Famotidine (Pepcid) 20 mg BID PO Last administered on 11/07/16 20:54; Start at 21:00 Donepezil HCl (Aricept) 10 mg DAILY PO Last administered on 11/07/16 08:48; Start 11/06/16 at 09:00 Lorazepam (Ativan) 0.5 mg TID PO Last administered on 11/07/16 20:54; Start at 21:00 Memantine (Namenda) 10 mg BID PO Last administered on 11/07/16 20:53; Start at 21:00 Olanzapine (ZyPREXA ZYDIS) 2.5 mg PRN Q2HR PRN PO ANXIETY / AGITATION Last administered on 11/05/16 20:25; Start 11/05/16 at 17:45 Paroxetine HCl (Paxil) 10 mg DAILY PO Last administered on 11/07/16 08:49; Start 11/06/16 at 09:00 Quetiapine Fumarate (SEROquel) 50 mg BID PO Last administered on 11/07/16 20: 53; Start 11/05/16 at 21:00 Active Scripts Active Reported Zyprexa Zydis (Olanzapine) 5 Mg Tab.rapdis 2.5 Mg PO PRN Q2HR PRN Paxil (Paroxetine Hcl) 10 Mg Tablet 10 Mg PO DAILY Cetirizine Hcl 10 Mg Tablet 10 Mg PO DAILY Analgesic [place] (Methyl Salicylate/Menthol) 29 Gm Oint...g. 1 [place] TP PRN QID PRN Provera (Medroxyprogesterone Acetate) 5 Mg Tablet 1 Tab PO DAILY Milk Of Magnesia (Magnesium Hydroxide) 2,400 Mg/10 Ml Oral.susp 2,400 Mg PO PRN QHS PRN Mag64 (Magnesium Chloride) 64 Mg Tablet.er 64 Mg PO DAILY Mag-Al Plus Xs Suspension (Mag Hydrox/Al Hydrox/Simeth) 30 Ml Oral.susp 15 Ml PO PRN AFTMEALHC PRN Tablet (Pnv Cmb#95/Ferrous Fumarate/Fa) 1 Each Tablet 1 Tab PO DAILYWLUN Tylenol (Acetaminophen) 325 Mg Tablet 650 Mg PO PRN Q4HRS PRN Levothyroxine Sodium 25 Mcg Tablet 25 Mcg PO DAILY06 Aricept (Donepezil Hcl) 10 Mg Tablet 10 Mg PO DAILY Lorazepam 0.5 Mg Tablet 0.5 Mg PO TID Ranitidine Hcl 150 Mg Tablet 150 Mg PO BID Seroquel (Quetiapine Fumarate) 50 Mg Tablet 50 Mg PO BID Namenda (Memantine Hcl) 10 Mg Tablet 10 Mg PO BID Vitamin D3 (Cholecalciferol (Vitamin D3)) 1,000 Unit Tablet 1,000 Unit PO DAILY Miralax (Polyethylene Glycol 3350) 119 Gm Powder 17 Gm PO PRN DAILY PRN PRISCILA GUEVARA MD November 07, 2016 21:13
[2016-11-08 06:14] VITALS: BP 111/58
[2016-11-08] MEDS: LEVOTHYROXINE 25 MCG TABLET. PO SCH (06:21)
[2016-11-08] MEDS: CHOLECALCIFEROL (VITAMIN D3) 1,000 UNIT TABLET PO SCH (08:37)
[2016-11-08] MEDS: DONEPEZIL HCL 10 MG TABLET PO SCH (08:37)
[2016-11-08] MEDS: FAMOTIDINE 20 MG TABLET PO SCH ×2 (08:37→19:22)
[2016-11-08] MEDS: medroxyPROGESTERone 5 MG TABLET PO SCH (08:37)
[2016-11-08] MEDS: CETIRIZINE HCL 10 MG TABLET PO SCH (08:37)
[2016-11-08] MEDS: PARoxetine 10 MG TABLET PO SCH (08:37)
[2016-11-08] MEDS: QUEtiapine 50 MG TABLET. PO SCH ×2 (08:37→19:21)
[2016-11-08] MEDS: LORazepam 0.5 MG TABLET PO SCH ×3 (08:37→19:23)
[2016-11-08] MEDS: MAGNESIUM CHLORIDE ER 64 MG TABLET.ER PO SCH (08:37)
[2016-11-08] MEDS: MEMANTINE 10 MG TABLET. PO SCH ×2 (08:37→19:21)
[2016-11-08] MEDS: PRENATAL MULTIVITAMIN TABLET. PO SCH (08:38)
[2016-11-08 15:53] VITALS: BP 91/52
[2016-11-08 16:30] VITALS: BP 119/59
[2016-11-08] MEDS: NITROFURANTOIN MONOHYD/M-CRYST 100 MG CAPSULE. PO SCH (20:04)
--- NOTE | 2016-11-08 21:06 | PDOC ---
Exam West Demential Exam: West Note: Please also refer to the separate dictated note~for this date of service dictated separately.~Patient seen individually. Discussed the patient with Nursing staff reviewed the chart.~Reviewed interim history and current functioning. Reviewed vital signs,~Labs/ Radiology~and current medications noted below. Continue current treatment with the changes noted in the dictated addendum note Assessment: Vital Signs: Vital Signs Date Time Temp Pulse Resp B/P (MAP) Pulse Ox O2 Delivery O2 Flow Rate FiO2 11/08/16 16:30 119/59 (79) 11/08/16 15:53 98.6 72 18 97 11/07/16 16:31 Room Air I&O Intake and Output 11/08/16 07:00 Intake Total 1325 ml Balance 1325 ml Intake Oral 1325 ml Current Medications: Meds: Current Medications Acetaminophen (Tylenol) 650 mg PRN Q4HRS PRN PO PAIN / TEMP Last administered on 11/05/16 20:25; Start 11/05/16 at 17:45 Cetirizine HCl (ZyrTEC) 10 mg DAILY PO Last administered on 11/08/16 08:37; Start 11/06/16 at 09:00 Vitamin D (Vitamin D3) 1,000 unit DAILY PO Last administered on 11/08/16 08:37 ; Start 11/06/16 at 09:00 Levothyroxine Sodium (Synthroid) 25 mcg DAILY06 PO Last administered on 06:21; Start 11/06/16 at 06:00 Al Hydroxide/Mg Hydroxide (Mylanta Plus Xs) 15 ml PRN AFTMEALHC PRN PO DYSPEPSIA; Start 11/05/16 at 17:45 Medroxyprogesterone Acetate (Provera) 5 mg DAILY PO Last administered on 08:37; Start 11/06/16 at 09:00 Multi-Ingredient Ointment (Analgesic [place]) 1 carol ann PRN QID PRN TP MUSCLE PAIN; Start 11/05/16 at 17:45 Polyethylene Glycol (miraLAX) 17 gm PRN DAILY PRN PO CONSTIPATION; Start at 09:00 Magnesium Chloride (Mag Delay) 64 mg DAILY PO Last administered on 11/08/16 08 :37; Start 11/06/16 at 09:00 Magnesium Hydroxide (Milk Of Magnesia) 2,400 mg PRN QHS PRN PO CONSTIPATION; Start 11/05/16 at 18:00 Prenat Multivit/ [place]/Iron/Folic Ac (Multivitamin ) 1 tab DAILYWLUN PO Last administered on 11/08/16 08:38; Start 11/06/16 at 12:00 Famotidine (Pepcid) 20 mg BID PO Last administered on 11/08/16 19:22; Start at 21:00 Donepezil HCl (Aricept) 10 mg DAILY PO Last administered on 11/08/16 08:37; Start 11/06/16 at 09:00 Lorazepam (Ativan) 0.5 mg TID PO Last administered on 11/08/16 19:23; Start at 21:00 Memantine (Namenda) 10 mg BID PO Last administered on 11/08/16 19:21; Start at 21:00 Olanzapine (ZyPREXA ZYDIS) 2.5 mg PRN Q2HR PRN PO ANXIETY / AGITATION Last administered on 11/05/16 20:25; Start 11/05/16 at 17:45 Paroxetine HCl (Paxil) 10 mg DAILY PO Last administered on 11/08/16 08:37; Start 11/06/16 at 09:00 Quetiapine Fumarate (SEROquel) 50 mg BID PO Last administered on 11/08/16 19: 21; Start 11/05/16 at 21:00 Nitrofurantoin Macrocrystals (Macrobid) 100 mg BID PO Last administered on 11/08 20:04; Start 11/08/16 at 21:00; Stop 11/10/16 at 21:01 Active Scripts Active Reported Zyprexa Zydis (Olanzapine) 5 Mg Tab.rapdis 2.5 Mg PO PRN Q2HR PRN Paxil (Paroxetine Hcl) 10 Mg Tablet 10 Mg PO DAILY Cetirizine Hcl 10 Mg Tablet 10 Mg PO DAILY Analgesic [place] (Methyl Salicylate/Menthol) 29 Gm Oint...g. 1 [place] TP PRN QID PRN Provera (Medroxyprogesterone Acetate) 5 Mg Tablet 1 Tab PO DAILY Milk Of Magnesia (Magnesium Hydroxide) 2,400 Mg/10 Ml Oral.susp 2,400 Mg PO PRN QHS PRN Mag64 (Magnesium Chloride) 64 Mg Tablet.er 64 Mg PO DAILY Mag-Al Plus Xs Suspension (Mag Hydrox/Al Hydrox/Simeth) 30 Ml Oral.susp 15 Ml PO PRN AFTMEALHC PRN Tablet (Pnv Cmb#95/Ferrous Fumarate/Fa) 1 Each Tablet 1 Tab PO DAILYWLUN Tylenol (Acetaminophen) 325 Mg Tablet 650 Mg PO PRN Q4HRS PRN Levothyroxine Sodium 25 Mcg Tablet 25 Mcg PO DAILY06 Aricept (Donepezil Hcl) 10 Mg Tablet 10 Mg PO DAILY Lorazepam 0.5 Mg Tablet 0.5 Mg PO TID Ranitidine Hcl 150 Mg Tablet 150 Mg PO BID Seroquel (Quetiapine Fumarate) 50 Mg Tablet 50 Mg PO BID Namenda (Memantine Hcl) 10 Mg Tablet 10 Mg PO BID Vitamin D3 (Cholecalciferol (Vitamin D3)) 1,000 Unit Tablet 1,000 Unit PO DAILY Miralax (Polyethylene Glycol 3350) 119 Gm Powder 17 Gm PO PRN DAILY PRN PRISCILA GUEVARA MD November 08, 2016 21:06
[2016-11-09] MEDS: LEVOTHYROXINE 25 MCG TABLET. PO SCH (05:38)
[2016-11-09 05:56] VITALS: BP 114/71
[2016-11-09] MEDS: CETIRIZINE HCL 10 MG TABLET PO SCH (08:22)
[2016-11-09] MEDS: DONEPEZIL HCL 10 MG TABLET PO SCH (08:22)
[2016-11-09] MEDS: medroxyPROGESTERone 5 MG TABLET PO SCH (08:22)
[2016-11-09] MEDS: QUEtiapine 50 MG TABLET. PO SCH ×2 (08:22→16:35)
[2016-11-09] MEDS: PARoxetine 10 MG TABLET PO SCH (08:22)
[2016-11-09] MEDS: MEMANTINE 10 MG TABLET. PO SCH ×2 (08:22→19:18)
[2016-11-09] MEDS: NITROFURANTOIN MONOHYD/M-CRYST 100 MG CAPSULE. PO SCH ×2 (08:22→19:18)
[2016-11-09] MEDS: FAMOTIDINE 20 MG TABLET PO SCH ×2 (08:22→19:18)
[2016-11-09] MEDS: MAGNESIUM CHLORIDE ER 64 MG TABLET.ER PO SCH (08:22)
[2016-11-09] MEDS: CHOLECALCIFEROL (VITAMIN D3) 1,000 UNIT TABLET PO SCH (08:22)
[2016-11-09] MEDS: PRENATAL MULTIVITAMIN TABLET. PO SCH (08:23)
[2016-11-09] MEDS: LORazepam 0.5 MG TABLET PO SCH ×3 (08:23→19:18)
[2016-11-09 16:06] VITALS: BP 128/64
[2016-11-09] MEDS: ACETAMINOPHEN 325 MG TABLET PO PRN (19:25)
--- NOTE | 2016-11-09 21:18 | PDOC ---
Exam West Demential Exam: West Note: Please also refer to the separate dictated note~for this date of service dictated separately.~Patient seen individually. Discussed the patient with Nursing staff reviewed the chart.~Reviewed interim history and current functioning. Reviewed vital signs,~Labs/ Radiology~and current medications noted below. Continue current treatment with the changes noted in the dictated addendum note Assessment: Vital Signs: Vital Signs Date Time Temp Pulse Resp B/P (MAP) Pulse Ox O2 Delivery O2 Flow Rate FiO2 11/09/16 16:06 98.6 68 16 128/64 (85) 97 11/07/16 16:31 Room Air I&O Intake and Output 11/09/16 07:00 Intake Total 1560 ml Balance 1560 ml Intake Oral 1560 ml Current Medications: Meds: Current Medications Acetaminophen (Tylenol) 650 mg PRN Q4HRS PRN PO PAIN / TEMP Last administered on 11/09/16 19:25; Start 11/05/16 at 17:45 Cetirizine HCl (ZyrTEC) 10 mg DAILY PO Last administered on 11/09/16 08:22; Start 11/06/16 at 09:00 Vitamin D (Vitamin D3) 1,000 unit DAILY PO Last administered on 11/09/16 08:22 ; Start 11/06/16 at 09:00 Levothyroxine Sodium (Synthroid) 25 mcg DAILY06 PO Last administered on 05:38; Start 11/06/16 at 06:00 Al Hydroxide/Mg Hydroxide (Mylanta Plus Xs) 15 ml PRN AFTMEALHC PRN PO DYSPEPSIA; Start 11/05/16 at 17:45 Medroxyprogesterone Acetate (Provera) 5 mg DAILY PO Last administered on 08:22; Start 11/06/16 at 09:00 Multi-Ingredient Ointment (Analgesic [place]) 1 carol ann PRN QID PRN TP MUSCLE PAIN; Start 11/05/16 at 17:45 Polyethylene Glycol (miraLAX) 17 gm PRN DAILY PRN PO CONSTIPATION; Start at 09:00 Magnesium Chloride (Mag Delay) 64 mg DAILY PO Last administered on 11/09/16 08 :22; Start 11/06/16 at 09:00 Magnesium Hydroxide (Milk Of Magnesia) 2,400 mg PRN QHS PRN PO CONSTIPATION; Start 11/05/16 at 18:00 Prenat Multivit/ [place]/Iron/Folic Ac (Multivitamin ) 1 tab DAILYWLUN PO Last administered on 11/09/16 08:23; Start 11/06/16 at 12:00 Famotidine (Pepcid) 20 mg BID PO Last administered on 11/09/16 19:18; Start at 21:00 Donepezil HCl (Aricept) 10 mg DAILY PO Last administered on 11/09/16 08:22; Start 11/06/16 at 09:00 Lorazepam (Ativan) 0.5 mg TID PO Last administered on 11/09/16 19:18; Start at 21:00 Memantine (Namenda) 10 mg BID PO Last administered on 11/09/16 19:18; Start at 21:00 Olanzapine (ZyPREXA ZYDIS) 2.5 mg PRN Q2HR PRN PO ANXIETY / AGITATION Last administered on 11/09/16 13:31; Start 11/05/16 at 17:45 Paroxetine HCl (Paxil) 10 mg DAILY PO Last administered on 11/09/16 08:22; Start 11/06/16 at 09:00 Quetiapine Fumarate (SEROquel) 50 mg BID PO Last administered on 11/09/16 08: 22; Start 11/05/16 at 21:00; Stop 11/09/16 at 14:50; Status DC Nitrofurantoin Macrocrystals (Macrobid) 100 mg BID PO Last administered on 11/09 19:18; Start 11/08/16 at 21:00; Stop 11/10/16 at 21:01 Quetiapine Fumarate (SEROquel) 50 mg BID@0900,1700 PO Last administered on 11/09 16:35; Start 11/09/16 at 17:00 Quetiapine Fumarate (SEROquel) 25 mg DAILY@1400 PO ; Start 11/10/16 at 14:00 Active Scripts Active Reported Zyprexa Zydis (Olanzapine) 5 Mg Tab.rapdis 2.5 Mg PO PRN Q2HR PRN Paxil (Paroxetine Hcl) 10 Mg Tablet 10 Mg PO DAILY Cetirizine Hcl 10 Mg Tablet 10 Mg PO DAILY Analgesic [place] (Methyl Salicylate/Menthol) 29 Gm Oint...g. 1 Carol Ann TP PRN QID PRN Provera (Medroxyprogesterone Acetate) 5 Mg Tablet 1 Tab PO DAILY Milk Of Magnesia (Magnesium Hydroxide) 2,400 Mg/10 Ml Oral.susp 2,400 Mg PO PRN QHS PRN Mag64 (Magnesium Chloride) 64 Mg Tablet.er 64 Mg PO DAILY Mag-Al Plus Xs Suspension (Mag Hydrox/Al Hydrox/Simeth) 30 Ml Oral.susp 15 Ml PO PRN AFTMEALHC PRN Tablet (Pnv Cmb#95/Ferrous Fumarate/Fa) 1 Each Tablet 1 Tab PO DAILYWLUN Tylenol (Acetaminophen) 325 Mg Tablet 650 Mg PO PRN Q4HRS PRN Levothyroxine Sodium 25 Mcg Tablet 25 Mcg PO DAILY06 Aricept (Donepezil Hcl) 10 Mg Tablet 10 Mg PO DAILY Lorazepam 0.5 Mg Tablet 0.5 Mg PO TID Ranitidine Hcl 150 Mg Tablet 150 Mg PO BID Seroquel (Quetiapine Fumarate) 50 Mg Tablet 50 Mg PO BID Namenda (Memantine Hcl) 10 Mg Tablet 10 Mg PO BID Vitamin D3 (Cholecalciferol (Vitamin D3)) 1,000 Unit Tablet 1,000 Unit PO DAILY Miralax (Polyethylene Glycol 3350) 119 Gm Powder 17 Gm PO PRN DAILY PRN PRISCILA GUEVARA MD November 09, 2016 21:18
--- NOTE | 2016-11-10 01:38 | PN ---
DATE: 11/07/2016 This late entry for 11/07/2016 covers elements, not covered in my initial note. SUBJECTIVE: The patient remains confused, withdrawn and has not been aggressive. REVIEW OF SYSTEMS: No CV, , pulmonary, eye, ENT system symptoms on review. He spends much time in his room where I met with him. Reliability poor. MENTAL STATUS EXAM: Oriented to himself. Insight, judgment, recent and remote memory, attention, concentration, fund of knowledge poor, consistent with his diagnosis. LABORATORY DATA: Reviewed. IMPRESSION: Major neurocognitive disorder, Alzheimer, vascular with depression, delusion, behavioral disturbance; anxiety disorder, unspecified; impulse control disorder, unspecified. PLAN: Maintain psychotropic mentioned in my initial note. At the time of his last discharge from the unit, he was on Effexor in place of his current Paxil as an antidepressant. We will reassess this. May also consider adding BuSpar for anxiety or adjusting Seroquel. PRISCILA GUEVARA MD DR: WALESKA/rebecca JOB#: [id number] / [id number]
--- NOTE | 2016-11-10 01:42 | PN ---
DATE: 11/08/2016 SUBJECTIVE: The patient was seen on rounds, discussed with nursing staff, reviewed the chart. This note covers elements not covered in my initial note. According to the nursing report, the patient has been withdrawn, gets a little irritable at times, but redirects. He is certainly very confused when I met with him in his room. REVIEW OF SYSTEMS: No CV, , pulmonary, eye, ENT system symptoms on review. MENTAL STATUS EXAM: Oriented to himself. Insight, judgment, recent and remote memory, attention, concentration, fund of knowledge poor, consistent with his diagnosis mentioned in my initial note. PLAN: The patient is currently on Seroquel 50 mg b.i.d. and we will make it 50 mg morning 09:00 a.m. and 05:00 p.m. and 25 mg at 02:00 p.m. Maintain Aricept 10 mg a day, Ativan 0.5 mg t.i.d., Namenda 10 mg b.i.d., Paxil 10 mg a day, Zyprexa p.r.n. Consider BuSpar for anxiety and agitation. PRISCILA GUEVARA MD DR: WALESKA/rebecca JOB#: [id number] / [id number]
[2016-11-10] MEDS: LEVOTHYROXINE 25 MCG TABLET. PO SCH (05:02)
[2016-11-10 06:01] VITALS: BP 98/52
[2016-11-10] MEDS: FAMOTIDINE 20 MG TABLET PO SCH ×2 (08:04→19:29)
[2016-11-10] MEDS: medroxyPROGESTERone 5 MG TABLET PO SCH (08:04)
[2016-11-10] MEDS: CHOLECALCIFEROL (VITAMIN D3) 1,000 UNIT TABLET PO SCH (08:04)
[2016-11-10] MEDS: DONEPEZIL HCL 10 MG TABLET PO SCH (08:04)
[2016-11-10] MEDS: MAGNESIUM CHLORIDE ER 64 MG TABLET.ER PO SCH (08:04)
[2016-11-10] MEDS: QUEtiapine 50 MG TABLET. PO SCH ×2 (08:04→16:25)
[2016-11-10] MEDS: CETIRIZINE HCL 10 MG TABLET PO SCH (08:04)
[2016-11-10] MEDS: NITROFURANTOIN MONOHYD/M-CRYST 100 MG CAPSULE. PO SCH ×2 (08:05→19:29)
[2016-11-10] MEDS: PARoxetine 10 MG TABLET PO SCH (08:05)
[2016-11-10] MEDS: MEMANTINE 10 MG TABLET. PO SCH ×2 (08:05→19:29)
[2016-11-10] MEDS: LORazepam 0.5 MG TABLET PO SCH ×3 (08:06→19:29)
[2016-11-10] MEDS: PRENATAL MULTIVITAMIN TABLET. PO SCH (13:05)
[2016-11-10] MEDS ORDERED: QUEtiapine 25 MG TABLET. PO SCH (14:00)
[2016-11-10 16:14] VITALS: BP 112/59
--- NOTE | 2016-11-10 21:20 | PDOC ---
Exam West Demential Exam: West Note: Please also refer to the separate dictated note~for this date of service dictated separately.~Patient seen individually. Discussed the patient with Nursing staff reviewed the chart.~Reviewed interim history and current functioning. Reviewed vital signs,~Labs/ Radiology~and current medications noted below. Continue current treatment with the changes noted in the dictated addendum note Assessment: Vital Signs: Vital Signs Date Time Temp Pulse Resp B/P (MAP) Pulse Ox O2 Delivery O2 Flow Rate FiO2 11/10/16 16:14 97.6 73 18 112/59 (76) 98 11/07/16 16:31 Room Air I&O Intake and Output 11/10/16 07:00 Intake Total 840 ml Balance 840 ml Intake Oral 840 ml Current Medications: Meds: Current Medications Acetaminophen (Tylenol) 650 mg PRN Q4HRS PRN PO PAIN / TEMP Last administered on 11/09/16 19:25; Start 11/05/16 at 17:45 Cetirizine HCl (ZyrTEC) 10 mg DAILY PO Last administered on 11/10/16 08:04; Start 11/06/16 at 09:00 Vitamin D (Vitamin D3) 1,000 unit DAILY PO Last administered on 11/10/16 08:04 ; Start 11/06/16 at 09:00 Levothyroxine Sodium (Synthroid) 25 mcg DAILY06 PO Last administered on 05:02; Start 11/06/16 at 06:00 Al Hydroxide/Mg Hydroxide (Mylanta Plus Xs) 15 ml PRN AFTMEALHC PRN PO DYSPEPSIA; Start 11/05/16 at 17:45 Medroxyprogesterone Acetate (Provera) 5 mg DAILY PO Last administered on 08:04; Start 11/06/16 at 09:00 Multi-Ingredient Ointment (Analgesic [place]) 1 carol ann PRN QID PRN TP MUSCLE PAIN; Start 11/05/16 at 17:45 Polyethylene Glycol (miraLAX) 17 gm PRN DAILY PRN PO CONSTIPATION; Start at 09:00 Magnesium Chloride (Mag Delay) 64 mg DAILY PO Last administered on 11/10/16 08 :04; Start 11/06/16 at 09:00 Magnesium Hydroxide (Milk Of Magnesia) 2,400 mg PRN QHS PRN PO CONSTIPATION; Start 11/05/16 at 18:00 Prenat Multivit/ [place]/Iron/Folic Ac (Multivitamin ) 1 tab DAILYWLUN PO Last administered on 11/10/16 13:05; Start 11/06/16 at 12:00 Famotidine (Pepcid) 20 mg BID PO Last administered on 11/10/16 19:29; Start at 21:00 Donepezil HCl (Aricept) 10 mg DAILY PO Last administered on 11/10/16 08:04; Start 11/06/16 at 09:00 Lorazepam (Ativan) 0.5 mg TID PO Last administered on 11/10/16 19:29; Start at 21:00 Memantine (Namenda) 10 mg BID PO Last administered on 11/10/16 19:29; Start at 21:00 Olanzapine (ZyPREXA ZYDIS) 2.5 mg PRN Q2HR PRN PO ANXIETY / AGITATION Last administered on 11/09/16 13:31; Start 11/05/16 at 17:45 Paroxetine HCl (Paxil) 10 mg DAILY PO Last administered on 11/10/16 08:05; Start 11/06/16 at 09:00 Quetiapine Fumarate (SEROquel) 50 mg BID PO Last administered on 11/09/16 08: 22; Start 11/05/16 at 21:00; Stop 11/09/16 at 14:50; Status DC Nitrofurantoin Macrocrystals (Macrobid) 100 mg BID PO Last administered on 11/10 19:29; Start 11/08/16 at 21:00; Stop 11/10/16 at 21:01; Status DC Quetiapine Fumarate (SEROquel) 50 mg BID@0900,1700 PO Last administered on 11/10 08:04; Start 11/09/16 at 17:00; Stop 11/10/16 at 14:06; Status DC Quetiapine Fumarate (SEROquel) 25 mg DAILY@1400 PO Last administered on 13:05; Start 11/10/16 at 14:00; Stop 5/31/17 at 14:06; Status DC Quetiapine Fumarate (SEROquel) 50 mg TID@0900,1400,1700 PO Last administered on 11/10/16t 16:25; Start 11/10/16 at 17:00 Active Scripts Active Reported Zyprexa Zydis (Olanzapine) 5 Mg Tab.rapdis 2.5 Mg PO PRN Q2HR PRN Paxil (Paroxetine Hcl) 10 Mg Tablet 10 Mg PO DAILY Cetirizine Hcl 10 Mg Tablet 10 Mg PO DAILY Analgesic [place] (Methyl Salicylate/Menthol) 29 Gm Oint...g. 1 [place] TP PRN QID PRN Provera (Medroxyprogesterone Acetate) 5 Mg Tablet 1 Tab PO DAILY Milk Of Magnesia (Magnesium Hydroxide) 2,400 Mg/10 Ml Oral.susp 2,400 Mg PO PRN QHS PRN Mag64 (Magnesium Chloride) 64 Mg Tablet.er 64 Mg PO DAILY Mag-Al Plus Xs Suspension (Mag Hydrox/Al Hydrox/Simeth) 30 Ml Oral.susp 15 Ml PO PRN AFTMEALHC PRN Tablet (Pnv Cmb#95/Ferrous Fumarate/Fa) 1 Each Tablet 1 Tab PO DAILYWLUN Tylenol (Acetaminophen) 325 Mg Tablet 650 Mg PO PRN Q4HRS PRN Levothyroxine Sodium 25 Mcg Tablet 25 Mcg PO DAILY06 Aricept (Donepezil Hcl) 10 Mg Tablet 10 Mg PO DAILY Lorazepam 0.5 Mg Tablet 0.5 Mg PO TID Ranitidine Hcl 150 Mg Tablet 150 Mg PO BID Seroquel (Quetiapine Fumarate) 50 Mg Tablet 50 Mg PO BID Namenda (Memantine Hcl) 10 Mg Tablet 10 Mg PO BID Vitamin D3 (Cholecalciferol (Vitamin D3)) 1,000 Unit Tablet 1,000 Unit PO DAILY Miralax (Polyethylene Glycol 3350) 119 Gm Powder 17 Gm PO PRN DAILY PRN PRISCILA GUEVARA MD November 10, 2016 21:20
[2016-11-11] MEDS: LEVOTHYROXINE 25 MCG TABLET. PO SCH (05:01)
[2016-11-11 05:53] VITALS: BP 144/73
[2016-11-11] MEDS: DONEPEZIL HCL 10 MG TABLET PO SCH (08:21)
[2016-11-11] MEDS: MAGNESIUM CHLORIDE ER 64 MG TABLET.ER PO SCH (08:21)
[2016-11-11] MEDS: FAMOTIDINE 20 MG TABLET PO SCH ×2 (08:21→20:08)
[2016-11-11] MEDS: PARoxetine 10 MG TABLET PO SCH (08:21)
[2016-11-11] MEDS: QUEtiapine 50 MG TABLET. PO SCH ×3 (08:21→16:47)
[2016-11-11] MEDS: CETIRIZINE HCL 10 MG TABLET PO SCH (08:22)
[2016-11-11] MEDS: MEMANTINE 10 MG TABLET. PO SCH ×2 (08:22→20:08)
[2016-11-11] MEDS: CHOLECALCIFEROL (VITAMIN D3) 1,000 UNIT TABLET PO SCH (08:22)
[2016-11-11] MEDS: medroxyPROGESTERone 5 MG TABLET PO SCH (08:22)
[2016-11-11] MEDS: LORazepam 0.5 MG TABLET PO SCH ×3 (08:23→20:09)
--- NOTE | 2016-11-11 09:14 | PN ---
DATE: 11/09/2016 This is a late entry for 11/09/2016 and covers elements not covered in my initial note. The patient did well the morning of 11/09/2016 but on the evening, he was having agitation, having outbursts, exit seeking, convinced his car was in the parking lot, he had to go home and if he could go home, "I will raise hell." REVIEW OF SYSTEMS: No CV, , eye, ENT or pulmonary system symptoms on review. Reliability poor. MENTAL STATUS EXAM: Oriented to himself. Insight, judgment, recent and remote memory, attention, concentration, fund of knowledge poor, consistent with his diagnoses mentioned in my initial note. IMPRESSION: Major neurocognitive disorder, Alzheimer, vascular with depression, delusion, behavioral disturbance. Rest unchanged. PLAN: Maintain Aricept 10 mg a day, Ativan 0.5 mg t.i.d., Namenda 10 mg b.i.d., Paxil 10 mg a day, Seroquel 50 mg at 0900 hours and 1700 hours, Seroquel 25 mg at 1400 hours, we will increase this to 50 mg as well, Zyprexa as p.r.n. Adjust further as clinically indicated. PRISCILA GUEVARA MD DR: WALESKA/rebecca JOB#: [id number] / [id number]
[2016-11-11] MEDS: PRENATAL MULTIVITAMIN TABLET. PO SCH (13:39)
[2016-11-11 16:24] VITALS: BP 104/62
--- NOTE | 2016-11-11 21:21 | PDOC ---
Exam West Demential Exam: West Note: Please also refer to the separate dictated note~for this date of service dictated separately.~Patient seen individually. Discussed the patient with Nursing staff reviewed the chart.~Reviewed interim history and current functioning. Reviewed vital signs,~Labs/ Radiology~and current medications noted below. Continue current treatment with the changes noted in the dictated addendum note Assessment: Vital Signs: Vital Signs Date Time Temp Pulse Resp B/P (MAP) Pulse Ox O2 Delivery O2 Flow Rate FiO2 11/11/16 16:24 98.1 87 18 104/62 (76) 97 11/11/16 05:53 Room Air I&O Intake and Output 11/11/16 07:00 Intake Total 480 ml Balance 480 ml Intake Oral 480 ml Current Medications: Meds: Current Medications Acetaminophen (Tylenol) 650 mg PRN Q4HRS PRN PO PAIN / TEMP Last administered on 11/09/16 19:25; Start 11/05/16 at 17:45 Cetirizine HCl (ZyrTEC) 10 mg DAILY PO Last administered on 11/11/16 08:22; Start 11/06/16 at 09:00 Vitamin D (Vitamin D3) 1,000 unit DAILY PO Last administered on 11/11/16 08:22 ; Start 11/06/16 at 09:00 Levothyroxine Sodium (Synthroid) 25 mcg DAILY06 PO Last administered on 05:01; Start 11/06/16 at 06:00 Al Hydroxide/Mg Hydroxide (Mylanta Plus Xs) 15 ml PRN AFTMEALHC PRN PO DYSPEPSIA; Start 11/05/16 at 17:45 Medroxyprogesterone Acetate (Provera) 5 mg DAILY PO Last administered on 08:22; Start 11/06/16 at 09:00 Multi-Ingredient Ointment (Analgesic [place]) 1 carol ann PRN QID PRN TP MUSCLE PAIN; Start 11/05/16 at 17:45 Polyethylene Glycol (miraLAX) 17 gm PRN DAILY PRN PO CONSTIPATION; Start at 09:00 Magnesium Chloride (Mag Delay) 64 mg DAILY PO Last administered on 11/11/16 08: 21; Start 11/06/16 at 09:00 Magnesium Hydroxide (Milk Of Magnesia) 2,400 mg PRN QHS PRN PO CONSTIPATION; Start 11/05/16 at 18:00 Prenat Multivit/ [place]/Iron/Folic Ac (Multivitamin ) 1 tab DAILYWLUN PO Last administered on 11/11/16 13:39; Start 11/06/16 at 12:00 Famotidine (Pepcid) 20 mg BID PO Last administered on 11/11/16 20:08; Start at 21:00 Donepezil HCl (Aricept) 10 mg DAILY PO Last administered on 11/11/16 08:21; Start 11/06/16 at 09:00 Lorazepam (Ativan) 0.5 mg TID PO Last administered on 11/11/16 20:09; Start at 21:00 Memantine (Namenda) 10 mg BID PO Last administered on 11/11/16 20:08; Start at 21:00 Olanzapine (ZyPREXA ZYDIS) 2.5 mg PRN Q2HR PRN PO ANXIETY / AGITATION Last administered on 11/09/16 13:31; Start 11/05/16 at 17:45 Paroxetine HCl (Paxil) 10 mg DAILY PO Last administered on 11/11/16 08:21; Start 11/06/16 at 09:00; Stop 11/11/16 at 10:52; Status DC Quetiapine Fumarate (SEROquel) 50 mg BID PO Last administered on 11/09/16 08: 22; Start 11/05/16 at 21:00; Stop 11/09/16 at 14:50; Status DC Nitrofurantoin Macrocrystals (Macrobid) 100 mg BID PO Last administered on 11/10 19:29; Start 11/08/16 at 21:00; Stop 11/10/16 at 21:01; Status DC Quetiapine Fumarate (SEROquel) 50 mg BID@0900,1700 PO Last administered on 11/10 08:04; Start 11/09/16 at 17:00; Stop 11/10/16 at 14:06; Status DC Quetiapine Fumarate (SEROquel) 25 mg DAILY@1400 PO Last administered on 13:05; Start 11/10/16 at 14:00; Stop 11/10/16 at 14:06; Status DC Quetiapine Fumarate (SEROquel) 50 mg TID@0900,1400,1700 PO Last administered on 11/11/16t 16:47; Start 11/10/16 at 17:00 Duloxetine HCl (Cymbalta) 30 mg DAILY PO ; Start 11/12/16 at 09:00 Active Scripts Active Reported Zyprexa Zydis (Olanzapine) 5 Mg Tab.rapdis 2.5 Mg PO PRN Q2HR PRN Paxil (Paroxetine Hcl) 10 Mg Tablet 10 Mg PO DAILY Cetirizine Hcl 10 Mg Tablet 10 Mg PO DAILY Analgesic [place] (Methyl Salicylate/Menthol) 29 Gm Oint...g. 1 Carol Ann TP PRN QID PRN Provera (Medroxyprogesterone Acetate) 5 Mg Tablet 1 Tab PO DAILY Milk Of Magnesia (Magnesium Hydroxide) 2,400 Mg/10 Ml Oral.susp 2,400 Mg PO PRN QHS PRN Mag64 (Magnesium Chloride) 64 Mg Tablet.er 64 Mg PO DAILY Mag-Al Plus Xs Suspension (Mag Hydrox/Al Hydrox/Simeth) 30 Ml Oral.susp 15 Ml PO PRN AFTMEALHC PRN Tablet (Pnv Cmb#95/Ferrous Fumarate/Fa) 1 Each Tablet 1 Tab PO DAILYWLUN Tylenol (Acetaminophen) 325 Mg Tablet 650 Mg PO PRN Q4HRS PRN Levothyroxine Sodium 25 Mcg Tablet 25 Mcg PO DAILY06 Aricept (Donepezil Hcl) 10 Mg Tablet 10 Mg PO DAILY Lorazepam 0.5 Mg Tablet 0.5 Mg PO TID Ranitidine Hcl 150 Mg Tablet 150 Mg PO BID Seroquel (Quetiapine Fumarate) 50 Mg Tablet 50 Mg PO BID Namenda (Memantine Hcl) 10 Mg Tablet 10 Mg PO BID Vitamin D3 (Cholecalciferol (Vitamin D3)) 1,000 Unit Tablet 1,000 Unit PO DAILY Miralax (Polyethylene Glycol 3350) 119 Gm Powder 17 Gm PO PRN DAILY PRN Diagnosis: Problems: (1) Dementia with behavioral disturbance (2) Anxiety disorder (3) Impulse control disorder (4) Dementia, vascular, with delusions (5) Dementia, vascular, with depression (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
[2016-11-12] MEDS: LEVOTHYROXINE 25 MCG TABLET. PO SCH (05:12)
[2016-11-12 06:26] VITALS: BP 122/73
[2016-11-12] MEDS: MAGNESIUM CHLORIDE ER 64 MG TABLET.ER PO SCH (09:23)
[2016-11-12] MEDS: medroxyPROGESTERone 5 MG TABLET PO SCH (09:23)
[2016-11-12] MEDS: CHOLECALCIFEROL (VITAMIN D3) 1,000 UNIT TABLET PO SCH (09:23)
[2016-11-12] MEDS: CETIRIZINE HCL 10 MG TABLET PO SCH (09:23)
[2016-11-12] MEDS: LORazepam 0.5 MG TABLET PO SCH ×3 (09:23→19:26)
[2016-11-12] MEDS: FAMOTIDINE 20 MG TABLET PO SCH ×2 (09:23→19:26)
[2016-11-12] MEDS: MEMANTINE 10 MG TABLET. PO SCH ×2 (09:23→19:26)
[2016-11-12] MEDS: QUEtiapine 50 MG TABLET. PO SCH ×3 (09:23→17:13)
[2016-11-12] MEDS: DONEPEZIL HCL 10 MG TABLET PO SCH (09:23)
[2016-11-12] MEDS: DULoxetine HCL 30 MG CAPSULE.DR PO SCH (09:24)
[2016-11-12] MEDS: PRENATAL MULTIVITAMIN TABLET. PO SCH (13:15)
[2016-11-12 16:07] VITALS: BP 131/75
--- NOTE | 2016-11-12 20:53 | PDOC ---
Exam West Demential Exam: West Note: Please also refer to the separate dictated note~for this date of service dictated separately.~Patient seen individually. Discussed the patient with Nursing staff reviewed the chart.~Reviewed interim history and current functioning. Reviewed vital signs,~Labs/ Radiology~and current medications noted below. Continue current treatment with the changes noted in the dictated addendum note Assessment: Vital Signs: Vital Signs Date Time Temp Pulse Resp B/P (MAP) Pulse Ox O2 Delivery O2 Flow Rate FiO2 11/12/16 16:07 97.2 88 18 131/75 (93) 96 11/11/16 05:53 Room Air I&O Intake and Output 11/12/16 07:00 Intake Total 1400 ml Balance 1400 ml Intake Oral 1400 ml # Voids 1 Current Medications: Meds: Current Medications Acetaminophen (Tylenol) 650 mg PRN Q4HRS PRN PO PAIN / TEMP Last administered on 11/09/16 19:25; Start 11/05/16 at 17:45 Cetirizine HCl (ZyrTEC) 10 mg DAILY PO Last administered on 11/12/16 09:23; Start 11/06/16 at 09:00 Vitamin D (Vitamin D3) 1,000 unit DAILY PO Last administered on 11/12/16 09:23 ; Start 11/06/16 at 09:00 Levothyroxine Sodium (Synthroid) 25 mcg DAILY06 PO Last administered on 05:12; Start 11/06/16 at 06:00 Al Hydroxide/Mg Hydroxide (Mylanta Plus Xs) 15 ml PRN AFTMEALHC PRN PO DYSPEPSIA; Start 11/05/16 at 17:45 Medroxyprogesterone Acetate (Provera) 5 mg DAILY PO Last administered on 09:23; Start 11/06/16 at 09:00; Stop 11/12/16 at 18:27; Status DC Multi-Ingredient Ointment (Analgesic [place]) 1 carol ann PRN QID PRN TP MUSCLE PAIN; Start 11/05/16 at 17:45 Polyethylene Glycol (miraLAX) 17 gm PRN DAILY PRN PO CONSTIPATION; Start at 09:00 Magnesium Chloride (Mag Delay) 64 mg DAILY PO Last administered on 11/12/16 09: 23; Start 11/06/16 at 09:00 Magnesium Hydroxide (Milk Of Magnesia) 2,400 mg PRN QHS PRN PO CONSTIPATION; Start 11/05/16 at 18:00 Prenat Multivit/ Contact Manager/Iron/Folic Ac (Multivitamin ) 1 tab DAILYWLUN PO Last administered on 11/12/16 13:15; Start 11/06/16 at 12:00 Famotidine (Pepcid) 20 mg BID PO Last administered on 11/12/16 19:26; Start at 21:00 Donepezil HCl (Aricept) 10 mg DAILY PO Last administered on 11/12/16 09:23; Start 11/06/16 at 09:00 Lorazepam (Ativan) 0.5 mg TID PO Last administered on 11/12/16 19:26; Start at 21:00 Memantine (Namenda) 10 mg BID PO Last administered on 11/12/16 19:26; Start at 21:00 Olanzapine (ZyPREXA ZYDIS) 2.5 mg PRN Q2HR PRN PO ANXIETY / AGITATION Last administered on 11/09/16 13:31; Start 11/05/16 at 17:45 Paroxetine HCl (Paxil) 10 mg DAILY PO Last administered on 11/11/16 08:21; Start 11/06/16 at 09:00; Stop 11/11/16 at 10:52; Status DC Quetiapine Fumarate (SEROquel) 50 mg BID PO Last administered on 11/09/16 08: 22; Start 11/05/16 at 21:00; Stop 11/09/16 at 14:50; Status DC Nitrofurantoin Macrocrystals (Macrobid) 100 mg BID PO Last administered on 11/10 19:29; Start 11/08/16 at 21:00; Stop 11/10/16 at 21:01; Status DC Quetiapine Fumarate (SEROquel) 50 mg BID@0900,1700 PO Last administered on 11/10 08:04; Start 11/09/16 at 17:00; Stop 11/10/16 at 14:06; Status DC Quetiapine Fumarate (SEROquel) 25 mg DAILY@1400 PO Last administered on 13:05; Start 11/10/16 at 14:00; Stop 11/10/16 at 14:06; Status DC Quetiapine Fumarate (SEROquel) 50 mg TID@0900,1400,1700 PO Last administered on 11/12/16 17:13; Start 11/10/16 at 17:00 Duloxetine HCl (Cymbalta) 30 mg DAILY PO Last administered on 11/12/16 09:24; Start 11/12/16 at 09:00 Medroxyprogesterone Acetate (Provera) 7.5 mg DAILY PO ; Start 11/13/16 at 09:00 Active Scripts Active Reported Zyprexa Zydis (Olanzapine) 5 Mg Tab.rapdis 2.5 Mg PO PRN Q2HR PRN Paxil (Paroxetine Hcl) 10 Mg Tablet 10 Mg PO DAILY Cetirizine Hcl 10 Mg Tablet 10 Mg PO DAILY Analgesic [place] (Methyl Salicylate/Menthol) 29 Gm Oint...g. 1 Carol Ann TP PRN QID PRN Provera (Medroxyprogesterone Acetate) 5 Mg Tablet 1 Tab PO DAILY Milk Of Magnesia (Magnesium Hydroxide) 2,400 Mg/10 Ml Oral.susp 2,400 Mg PO PRN QHS PRN Mag64 (Magnesium Chloride) 64 Mg Tablet.er 64 Mg PO DAILY Mag-Al Plus Xs Suspension (Mag Hydrox/Al Hydrox/Simeth) 30 Ml Oral.susp 15 Ml PO PRN AFTMEALHC PRN Tablet (Pnv Cmb#95/Ferrous Fumarate/Fa) 1 Each Tablet 1 Tab PO DAILYWLUN Tylenol (Acetaminophen) 325 Mg Tablet 650 Mg PO PRN Q4HRS PRN Levothyroxine Sodium 25 Mcg Tablet 25 Mcg PO DAILY06 Aricept (Donepezil Hcl) 10 Mg Tablet 10 Mg PO DAILY Lorazepam 0.5 Mg Tablet 0.5 Mg PO TID Ranitidine Hcl 150 Mg Tablet 150 Mg PO BID Seroquel (Quetiapine Fumarate) 50 Mg Tablet 50 Mg PO BID Namenda (Memantine Hcl) 10 Mg Tablet 10 Mg PO BID Vitamin D3 (Cholecalciferol (Vitamin D3)) 1,000 Unit Tablet 1,000 Unit PO DAILY Miralax (Polyethylene Glycol 3350) 119 Gm Powder 17 Gm PO PRN DAILY PRN Diagnosis: Problems: (1) Dementia with behavioral disturbance (2) Medical clearance for psychiatric admission (3) Anxiety disorder (4) Impulse control disorder (5) Dementia, vascular, with delusions (6) Dementia, vascular, with depression (7) Dementia in Alzheimer's disease with delusions (8) Dementia in Alzheimer's disease with depression PRISCILA GUEVARA MD Nov 12, 2016 20:52
--- NOTE | 2016-11-13 04:21 | PN ---
DATE: 11/10/2016 This late entry for 11/10/2016 covers elements not covered in my initial note. SUBJECTIVE: The patient has done reasonably well during the day of 11/10/2016, but previous evening, he was agitated, spending time in his room, covering his head, gets paranoid, delusional, quite confused. REVIEW OF SYSTEMS: No CV, , eye, ENT, pulmonary system symptoms on review. Reliability poor. MENTAL STATUS EXAM: Oriented to himself. Insight, judgment, recent and remote memory, attention, concentration, fund of knowledge poor, consistent with his diagnosis mentioned in my initial note. IMPRESSION: Major neurocognitive disorder, Alzheimer, vascular with depression, delusion and behavioral disturbance. Rest unchanged. PLAN: Continue psychotropics mentioned in my initial note. May consider changing Paxil to an SNRI agent depending on his progress since he has done well on Effexor in the past. PRISCILA GUEVARA MD DR: WALESKA/rebecca JOB#: [id number] / [id number]
--- NOTE | 2016-11-13 04:24 | PN ---
DATE: 11/11/2016 This late entry for 11/11/2016 covers elements not covered in my initial note. SUBJECTIVE: The patient was staffed at a treatment team meeting with the entire team in the morning of 11/11/2016, seen individually in the evening of 11/11/2016. Reviewed his history, diagnosis, current medications, discharge, aftercare plans. The patient slept 7 hours. Appetite is fair. 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 Petit. I will defer to Dr. Petit for this. Gets intermittently agitated. REVIEW OF SYSTEMS: No CV, , pulmonary, eye, ENT system symptoms on review. Reliability poor. MENTAL STATUS EXAM: Oriented to himself. Insight, judgment, recent and remote memory, attention, concentration, fund of knowledge poor, consistent with his diagnosis mentioned in my initial note. IMPRESSION: Major neurocognitive disorder, Alzheimer, vascular with depression, delusion, behavioral disturbance, UTI, anxiety disorder, unspecified; impulse control disorder, unspecified. PLAN: Treat the UTI change Paxil to Cymbalta 30 mg a day, may need to increase this. Continue Aricept 10 mg a day, Ativan 0.5 mg t.i.d., Namenda 10 mg b.i.d., Seroquel 50 mg 3 times a day, Zyprexa p.r.n., Provera 5 mg a day. Adjust further as clinically indicated. Consider Depakote as a mood stabilizer if aggression and irritability persists. PRISCILA GUEVARA MD DR: WALESKA/rebecca JOB#: [id number] / [id number]
[2016-11-13] MEDS: LEVOTHYROXINE 25 MCG TABLET. PO SCH (06:05)
[2016-11-13 06:19] VITALS: BP 105/62
[2016-11-13] MEDS: LORazepam 0.5 MG TABLET PO SCH ×3 (08:41→19:57)
[2016-11-13] MEDS: DONEPEZIL HCL 10 MG TABLET PO SCH (08:41)
[2016-11-13] MEDS: MEMANTINE 10 MG TABLET. PO SCH ×2 (08:41→19:57)
[2016-11-13] MEDS: DULoxetine HCL 30 MG CAPSULE.DR PO SCH (08:41)
[2016-11-13] MEDS: FAMOTIDINE 20 MG TABLET PO SCH ×2 (08:41→19:57)
[2016-11-13] MEDS: MAGNESIUM CHLORIDE ER 64 MG TABLET.ER PO SCH (08:41)
[2016-11-13] MEDS: CETIRIZINE HCL 10 MG TABLET PO SCH (08:41)
[2016-11-13] MEDS: QUEtiapine 50 MG TABLET. PO SCH ×3 (08:41→16:49)
[2016-11-13] MEDS: CHOLECALCIFEROL (VITAMIN D3) 1,000 UNIT TABLET PO SCH (08:41)
[2016-11-13] MEDS: medroxyPROGESTERone 5 MG TABLET PO SCH (08:42)
[2016-11-13] MEDS: PRENATAL MULTIVITAMIN TABLET. PO SCH (12:33)
[2016-11-13 16:00] VITALS: BP 111/66
--- NOTE | 2016-11-13 22:11 | PDOC ---
Exam West Demential Exam: West Note: Please also refer to the separate dictated note~for this date of service dictated separately.~Patient seen individually. Discussed the patient with Nursing staff reviewed the chart.~Reviewed interim history and current functioning. Reviewed vital signs,~Labs/ Radiology~and current medications noted below. Continue current treatment with the changes noted in the dictated addendum note Assessment: Vital Signs: Vital Signs Date Time Temp Pulse Resp B/P (MAP) Pulse Ox O2 Delivery O2 Flow Rate FiO2 11/13/16 16:00 98.0 78 20 111/66 (81) 97 11/11/16 05:53 Room Air I&O Intake and Output 11/13/16 07:00 Intake Total 540 ml Balance 540 ml Intake Oral 540 ml Current Medications: Meds: Current Medications Acetaminophen (Tylenol) 650 mg PRN Q4HRS PRN PO PAIN / TEMP Last administered on 11/09/16 19:25; Start 11/05/16 at 17:45 Cetirizine HCl (ZyrTEC) 10 mg DAILY PO Last administered on 11/13/16 08:41; Start 11/06/16 at 09:00 Vitamin D (Vitamin D3) 1,000 unit DAILY PO Last administered on 11/13/16 08:41 ; Start 11/06/16 at 09:00 Levothyroxine Sodium (Synthroid) 25 mcg DAILY06 PO Last administered on 06:05; Start 11/06/16 at 06:00 Al Hydroxide/Mg Hydroxide (Mylanta Plus Xs) 15 ml PRN AFTMEALHC PRN PO DYSPEPSIA; Start 11/05/16 at 17:45 Medroxyprogesterone Acetate (Provera) 5 mg DAILY PO Last administered on 09:23; Start 11/06/16 at 09:00; Stop 11/12/16 at 18:27; Status DC Multi-Ingredient Ointment (Analgesic [place]) 1 carol ann PRN QID PRN TP MUSCLE PAIN; Start 11/05/16 at 17:45 Polyethylene Glycol (miraLAX) 17 gm PRN DAILY PRN PO CONSTIPATION; Start at 09:00 Magnesium Chloride (Mag Delay) 64 mg DAILY PO Last administered on 11/13/16 08: 41; Start 11/06/16 at 09:00 Magnesium Hydroxide (Milk Of Magnesia) 2,400 mg PRN QHS PRN PO CONSTIPATION; Start 11/05/16 at 18:00 Prenat Multivit/ [place]/Iron/Folic Ac (Multivitamin ) 1 tab DAILYWLUN PO Last administered on 11/13/16 12:33; Start 11/06/16 at 12:00 Famotidine (Pepcid) 20 mg BID PO Last administered on 11/13/16 19:57; Start at 21:00 Donepezil HCl (Aricept) 10 mg DAILY PO Last administered on 11/13/16 08:41; Start 11/06/16 at 09:00 Lorazepam (Ativan) 0.5 mg TID PO Last administered on 11/13/16 19:57; Start at 21:00 Memantine (Namenda) 10 mg BID PO Last administered on 11/13/16 19:57; Start at 21:00 Olanzapine (ZyPREXA ZYDIS) 2.5 mg PRN Q2HR PRN PO ANXIETY / AGITATION Last administered on 11/09/16 13:31; Start 11/05/16 at 17:45 Paroxetine HCl (Paxil) 10 mg DAILY PO Last administered on 11/11/16 08:21; Start 11/06/16 at 09:00; Stop 11/11/16 at 10:52; Status DC Quetiapine Fumarate (SEROquel) 50 mg BID PO Last administered on 11/09/16 08: 22; Start 11/05/16 at 21:00; Stop 11/09/16 at 14:50; Status DC Nitrofurantoin Macrocrystals (Macrobid) 100 mg BID PO Last administered on 11/10 19:29; Start 11/08/16 at 21:00; Stop 11/10/16 at 21:01; Status DC Quetiapine Fumarate (SEROquel) 50 mg BID@0900,1700 PO Last administered on 11/10 08:04; Start 11/09/16 at 17:00; Stop 11/10/16 at 14:06; Status DC Quetiapine Fumarate (SEROquel) 25 mg DAILY@1400 PO Last administered on 13:05; Start 11/10/16 at 14:00; Stop 11/10/16 at 14:06; Status DC Quetiapine Fumarate (SEROquel) 50 mg TID@0900,1400,1700 PO Last administered on 11/13/16 16:49; Start 11/10/16 at 17:00 Duloxetine HCl (Cymbalta) 30 mg DAILY PO Last administered on 11/13/16 08:41; Start 11/12/16 at 09:00 Medroxyprogesterone Acetate (Provera) 7.5 mg DAILY PO Last administered on 08:42; Start 11/13/16 at 09:00 Active Scripts Active Reported Zyprexa Zydis (Olanzapine) 5 Mg Tab.rapdis 2.5 Mg PO PRN Q2HR PRN Paxil (Paroxetine Hcl) 10 Mg Tablet 10 Mg PO DAILY Cetirizine Hcl 10 Mg Tablet 10 Mg PO DAILY Analgesic [place] (Methyl Salicylate/Menthol) 29 Gm Oint...g. 1 Carol [place] TP PRN QID PRN Provera (Medroxyprogesterone Acetate) 5 Mg Tablet 1 Tab PO DAILY Milk Of Magnesia (Magnesium Hydroxide) 2,400 Mg/10 Ml Oral.susp 2,400 Mg PO PRN QHS PRN Mag64 (Magnesium Chloride) 64 Mg Tablet.er 64 Mg PO DAILY Mag-Al Plus Xs Suspension (Mag Hydrox/Al Hydrox/Simeth) 30 Ml Oral.susp 15 Ml PO PRN AFTMEALHC PRN Tablet (Pnv Cmb#95/Ferrous Fumarate/Fa) 1 Each Tablet 1 Tab PO DAILYWLUN Tylenol (Acetaminophen) 325 Mg Tablet 650 Mg PO PRN Q4HRS PRN Levothyroxine Sodium 25 Mcg Tablet 25 Mcg PO DAILY06 Aricept (Donepezil Hcl) 10 Mg Tablet 10 Mg PO DAILY Lorazepam 0.5 Mg Tablet 0.5 Mg PO TID Ranitidine Hcl 150 Mg Tablet 150 Mg PO BID Seroquel (Quetiapine Fumarate) 50 Mg Tablet 50 Mg PO BID Namenda (Memantine Hcl) 10 Mg Tablet 10 Mg PO BID Vitamin D3 (Cholecalciferol (Vitamin D3)) 1,000 Unit Tablet 1,000 Unit PO DAILY Miralax (Polyethylene Glycol 3350) 119 Gm Powder 17 Gm PO PRN DAILY PRN Diagnosis: Problems: (1) Dementia with behavioral disturbance (2) Anxiety disorder (3) Impulse control disorder (4) Dementia, vascular, with delusions (5) Dementia, vascular, with depression (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
--- NOTE | 2016-11-14 02:05 | PN ---
DATE: 11/13/2016 PSYCHIATRIC PROGRESS NOTE SUBJECTIVE: The patient was seen on rounds the afternoon of 11/13/2016. Discussed with nursing staff, reviewed the chart. I also met with the patient's who was visiting him. I met with her at some length discussed the patient's diagnosis, past history, medication changes, discharge plans. He is compliant with his medications, was threatening a male staff member last evening, but compliant today. REVIEW OF SYSTEMS: No CV, , pulmonary, eye, ENT system symptoms on review. Reliability poor. MENTAL STATUS EXAM: Oriented to himself. Insight, judgment, recent and remote memory, attention, concentration, fund of knowledge poor, consistent with his diagnosis mentioned in my initial note. PLAN: Continue current psychotropics. Adjust further as clinically indicated. MAN Laina GUEVARA MD DR: WALESKA/rebecca JOB#: [id number] / [id number]
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
[2016-11-14] MEDS: LEVOTHYROXINE 25 MCG TABLET. PO SCH (05:55)
[2016-11-14 06:26] VITALS: BP 114/64
[2016-11-14] MEDS: MAGNESIUM CHLORIDE ER 64 MG TABLET.ER PO SCH (08:59)
[2016-11-14] MEDS: medroxyPROGESTERone 5 MG TABLET PO SCH (09:00)
[2016-11-14] MEDS: CHOLECALCIFEROL (VITAMIN D3) 1,000 UNIT TABLET PO SCH (09:00)
[2016-11-14] MEDS: DONEPEZIL HCL 10 MG TABLET PO SCH (09:00)
[2016-11-14] MEDS: CETIRIZINE HCL 10 MG TABLET PO SCH (09:01)
[2016-11-14] MEDS: FAMOTIDINE 20 MG TABLET PO SCH ×2 (09:01→20:40)
[2016-11-14] MEDS: MEMANTINE 10 MG TABLET. PO SCH ×2 (09:01→20:40)
[2016-11-14] MEDS: DULoxetine HCL 30 MG CAPSULE.DR PO SCH (09:02)
[2016-11-14] MEDS: QUEtiapine 50 MG TABLET. PO SCH ×3 (09:02→17:29)
[2016-11-14] MEDS: LORazepam 0.5 MG TABLET PO SCH ×3 (09:09→20:40)
[2016-11-14] MEDS: PRENATAL MULTIVITAMIN TABLET. PO SCH (13:20)
[2016-11-14 16:26] VITALS: BP 123/70
--- NOTE | 2016-11-14 20:15 | PDOC ---
Exam West Demential Exam: West Note: Please also refer to the separate dictated note~for this date of service dictated separately.~Patient seen individually. Discussed the patient with Nursing staff reviewed the chart.~Reviewed interim history and current functioning. Reviewed vital signs,~Labs/ Radiology~and current medications noted below. Continue current treatment with the changes noted in the dictated addendum note Assessment: Vital Signs: Vital Signs Date Time Temp Pulse Resp B/P (MAP) Pulse Ox O2 Delivery O2 Flow Rate FiO2 11/14/16 16:26 99.0 71 16 123/70 (87) 97.0 11/14/16 06:26 98 Room Air I&O Intake and Output 11/14/16 07:00 Intake Total 740 ml Balance 740 ml Intake Oral 740 ml Current Medications: Meds: Current Medications Acetaminophen (Tylenol) 650 mg PRN Q4HRS PRN PO PAIN / TEMP Last administered on 11/09/16 19:25; Start 11/05/16 at 17:45 Cetirizine HCl (ZyrTEC) 10 mg DAILY PO Last administered on 11/14/16 09:01; Start 11/06/16 at 09:00 Vitamin D (Vitamin D3) 1,000 unit DAILY PO Last administered on 11/14/16 09:00 ; Start 11/06/16 at 09:00 Levothyroxine Sodium (Synthroid) 25 mcg DAILY06 PO Last administered on 05:55; Start 11/06/16 at 06:00 Al Hydroxide/Mg Hydroxide (Mylanta Plus Xs) 15 ml PRN AFTMEALHC PRN PO DYSPEPSIA; Start 11/05/16 at 17:45 Medroxyprogesterone Acetate (Provera) 5 mg DAILY PO Last administered on 09:23; Start 11/06/16 at 09:00; Stop 11/12/16 at 18:27; Status DC Multi-Ingredient Ointment (Analgesic [place]) 1 carol ann PRN QID PRN TP MUSCLE PAIN; Start 11/05/16 at 17:45 Polyethylene Glycol (miraLAX) 17 gm PRN DAILY PRN PO CONSTIPATION; Start at 09:00 Magnesium Chloride (Mag Delay) 64 mg DAILY PO Last administered on 11/14/16 08: 59; Start 11/06/16 at 09:00 Magnesium Hydroxide (Milk Of Magnesia) 2,400 mg PRN QHS PRN PO CONSTIPATION; Start 11/05/16 at 18:00 Prenat Multivit/ Optomechanical Engineer/Iron/Folic Ac (Multivitamin ) 1 tab DAILYWLUN PO Last administered on 11/14/16 13:20; Start 11/06/16 at 12:00 Famotidine (Pepcid) 20 mg BID PO Last administered on 11/14/16 09:01; Start at 21:00 Donepezil HCl (Aricept) 10 mg DAILY PO Last administered on 11/14/16 09:00; Start 11/06/16 at 09:00 Lorazepam (Ativan) 0.5 mg TID PO Last administered on 11/14/16 13:19; Start at 21:00 Memantine (Namenda) 10 mg BID PO Last administered on 11/14/16 09:01; Start at 21:00 Olanzapine (ZyPREXA ZYDIS) 2.5 mg PRN Q2HR PRN PO ANXIETY / AGITATION Last administered on 11/09/16 13:31; Start 11/05/16 at 17:45 Paroxetine HCl (Paxil) 10 mg DAILY PO Last administered on 11/11/16 08:21; Start 11/06/16 at 09:00; Stop 11/11/16 at 10:52; Status DC Quetiapine Fumarate (SEROquel) 50 mg BID PO Last administered on 11/09/16 08: 22; Start 11/05/16 at 21:00; Stop 11/09/16 at 14:50; Status DC Nitrofurantoin Macrocrystals (Macrobid) 100 mg BID PO Last administered on 11/10 19:29; Start 11/08/16 at 21:00; Stop 11/10/16 at 21:01; Status DC Quetiapine Fumarate (SEROquel) 50 mg BID@0900,1700 PO Last administered on 11/10 08:04; Start 11/09/16 at 17:00; Stop 11/10/16 at 14:06; Status DC Quetiapine Fumarate (SEROquel) 25 mg DAILY@1400 PO Last administered on 13:05; Start 11/10/16 at 14:00; Stop 11/10/16 at 14:06; Status DC Quetiapine Fumarate (SEROquel) 50 mg TID@0900,1400,1700 PO Last administered on 11/14/16 17:29; Start 11/10/16 at 17:00 Duloxetine HCl (Cymbalta) 30 mg DAILY PO Last administered on 11/14/16 09:02; Start 11/12/16 at 09:00 Medroxyprogesterone Acetate (Provera) 7.5 mg DAILY PO Last administered on 09:00; Start 11/13/16 at 09:00 Active Scripts Active Reported Zyprexa Zydis (Olanzapine) 5 Mg Tab.rapdis 2.5 Mg PO PRN Q2HR PRN Paxil (Paroxetine Hcl) 10 Mg Tablet 10 Mg PO DAILY Cetirizine Hcl 10 Mg Tablet 10 Mg PO DAILY Analgesic [place] (Methyl Salicylate/Menthol) 29 Gm Oint...g. 1 [place] TP PRN QID PRN Provera (Medroxyprogesterone Acetate) 5 Mg Tablet 1 Tab PO DAILY Milk Of Magnesia (Magnesium Hydroxide) 2,400 Mg/10 Ml Oral.susp 2,400 Mg PO PRN QHS PRN Mag64 (Magnesium Chloride) 64 Mg Tablet.er 64 Mg PO DAILY Mag-Al Plus Xs Suspension (Mag Hydrox/Al Hydrox/Simeth) 30 Ml Oral.susp 15 Ml PO PRN AFTMEALHC PRN Tablet (Pnv Cmb#95/Ferrous Fumarate/Fa) 1 Each Tablet 1 Tab PO DAILYWLUN Tylenol (Acetaminophen) 325 Mg Tablet 650 Mg PO PRN Q4HRS PRN Levothyroxine Sodium 25 Mcg Tablet 25 Mcg PO DAILY06 Aricept (Donepezil Hcl) 10 Mg Tablet 10 Mg PO DAILY Lorazepam 0.5 Mg Tablet 0.5 Mg PO TID Ranitidine Hcl 150 Mg Tablet 150 Mg PO BID Seroquel (Quetiapine Fumarate) 50 Mg Tablet 50 Mg PO BID Namenda (Memantine Hcl) 10 Mg Tablet 10 Mg PO BID Vitamin D3 (Cholecalciferol (Vitamin D3)) 1,000 Unit Tablet 1,000 Unit PO DAILY Miralax (Polyethylene Glycol 3350) 119 Gm Powder 17 Gm PO PRN DAILY PRN Diagnosis: Problems: (1) Dementia with behavioral disturbance (2) Anxiety disorder (3) Impulse control disorder (4) Dementia, vascular, with delusions (5) Dementia, vascular, 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
[2016-11-15] MEDS: LEVOTHYROXINE 25 MCG TABLET. PO SCH (05:55)
[2016-11-15 06:11] VITALS: BP 139/59
[2016-11-15] MEDS: DONEPEZIL HCL 10 MG TABLET PO SCH (09:42)
[2016-11-15] MEDS: LORazepam 0.5 MG TABLET PO SCH ×3 (09:42→20:03)
[2016-11-15] MEDS: MAGNESIUM CHLORIDE ER 64 MG TABLET.ER PO SCH (09:42)
[2016-11-15] MEDS: DULoxetine HCL 30 MG CAPSULE.DR PO SCH (09:42)
[2016-11-15] MEDS: CHOLECALCIFEROL (VITAMIN D3) 1,000 UNIT TABLET PO SCH (09:43)
[2016-11-15] MEDS: medroxyPROGESTERone 5 MG TABLET PO SCH (09:43)
[2016-11-15] MEDS: FAMOTIDINE 20 MG TABLET PO SCH ×2 (09:43→20:03)
[2016-11-15] MEDS: CETIRIZINE HCL 10 MG TABLET PO SCH (09:43)
[2016-11-15] MEDS: QUEtiapine 50 MG TABLET. PO SCH ×3 (09:43→16:32)
[2016-11-15] MEDS: MEMANTINE 10 MG TABLET. PO SCH ×2 (09:44→20:03)
[2016-11-15] MEDS: PRENATAL MULTIVITAMIN TABLET. PO SCH (09:44)
[2016-11-15 16:52] VITALS: BP 123/62
--- NOTE | 2016-11-15 21:12 | PDOC ---
Exam West Demential Exam: West Note: Please also refer to the separate dictated note~for this date of service dictated separately.~Patient seen individually. Discussed the patient with Nursing staff reviewed the chart.~Reviewed interim history and current functioning. Reviewed vital signs,~Labs/ Radiology~and current medications noted below. Continue current treatment with the changes noted in the dictated addendum note Assessment: Vital Signs: Vital Signs Date Time Temp Pulse Resp B/P (MAP) Pulse Ox O2 Delivery O2 Flow Rate FiO2 11/15/16 16:52 97.3 84 18 123/62 (82) 97 11/14/16 16:26 97.0 11/14/16 06:26 Room Air I&O Intake and Output 11/15/16 07:00 Intake Total 1080 ml Balance 1080 ml Intake Oral 1080 ml Current Medications: Meds: Current Medications Acetaminophen (Tylenol) 650 mg PRN Q4HRS PRN PO PAIN / TEMP Last administered on 11/09/16 19:25; Start 11/05/16 at 17:45 Cetirizine HCl (ZyrTEC) 10 mg DAILY PO Last administered on 11/15/16 09:43; Start 11/06/16 at 09:00 Vitamin D (Vitamin D3) 1,000 unit DAILY PO Last administered on 11/15/16 09:43 ; Start 11/06/16 at 09:00 Levothyroxine Sodium (Synthroid) 25 mcg DAILY06 PO Last administered on 05:55; Start 11/06/16 at 06:00 Al Hydroxide/Mg Hydroxide (Mylanta Plus Xs) 15 ml PRN AFTMEALHC PRN PO DYSPEPSIA; Start 11/05/16 at 17:45 Medroxyprogesterone Acetate (Provera) 5 mg DAILY PO Last administered on 09:23; Start 11/06/16 at 09:00; Stop 11/12/16 at 18:27; Status DC Multi-Ingredient Ointment (Analgesic [place]) 1 carol ann PRN QID PRN TP MUSCLE PAIN; Start 11/05/16 at 17:45 Polyethylene Glycol (miraLAX) 17 gm PRN DAILY PRN PO CONSTIPATION; Start at 09:00 Magnesium Chloride (Mag Delay) 64 mg DAILY PO Last administered on 11/15/16 09: 42; Start 11/06/16 at 09:00 Magnesium Hydroxide (Milk Of Magnesia) 2,400 mg PRN QHS PRN PO CONSTIPATION; Start 11/05/16 at 18:00 Prenat Multivit/ Interior Assemblies Installer/Iron/Folic Ac (Multivitamin ) 1 tab DAILYWLUN PO Last administered on 11/15/16 09:44; Start 11/06/16 at 12:00 Famotidine (Pepcid) 20 mg BID PO Last administered on 11/15/16 20:03; Start at 21:00 Donepezil HCl (Aricept) 10 mg DAILY PO Last administered on 11/15/16 09:42; Start 11/06/16 at 09:00 Lorazepam (Ativan) 0.5 mg TID PO Last administered on 11/15/16 20:03; Start at 21:00 Memantine (Namenda) 10 mg BID PO Last administered on 11/15/16 20:03; Start at 21:00 Olanzapine (ZyPREXA ZYDIS) 2.5 mg PRN Q2HR PRN PO ANXIETY / AGITATION Last administered on 11/09/16 13:31; Start 11/05/16 at 17:45 Paroxetine HCl (Paxil) 10 mg DAILY PO Last administered on 11/11/16 08:21; Start 11/06/16 at 09:00; Stop 11/11/16 at 10:52; Status DC Quetiapine Fumarate (SEROquel) 50 mg BID PO Last administered on 11/09/16 08: 22; Start 11/05/16 at 21:00; Stop 11/09/16 at 14:50; Status DC Nitrofurantoin Macrocrystals (Macrobid) 100 mg BID PO Last administered on 11/10 19:29; Start 11/08/16 at 21:00; Stop 11/10/16 at 21:01; Status DC Quetiapine Fumarate (SEROquel) 50 mg BID@0900,1700 PO Last administered on 11/10 08:04; Start 11/09/16 at 17:00; Stop 11/10/16 at 14:06; Status DC Quetiapine Fumarate (SEROquel) 25 mg DAILY@1400 PO Last administered on 13:05; Start 11/10/16 at 14:00; Stop 11/10/16 at 14:06; Status DC Quetiapine Fumarate (SEROquel) 50 mg TID@0900,1400,1700 PO Last administered on 11/15/16 16:32; Start 11/10/16 at 17:00 Duloxetine HCl (Cymbalta) 30 mg DAILY PO Last administered on 11/15/16 09:42; Start 11/12/16 at 09:00 Medroxyprogesterone Acetate (Provera) 7.5 mg DAILY PO Last administered on 09:43; Start 11/13/16 at 09:00 Active Scripts Active Reported Zyprexa Zydis (Olanzapine) 5 Mg Tab.rapdis 2.5 Mg PO PRN Q2HR PRN Paxil (Paroxetine Hcl) 10 Mg Tablet 10 Mg PO DAILY Cetirizine Hcl 10 Mg Tablet 10 Mg PO DAILY Analgesic [place] (Methyl Salicylate/Menthol) 29 Gm Oint...g. 1 Carol Ann TP PRN QID PRN Provera (Medroxyprogesterone Acetate) 5 Mg Tablet 1 Tab PO DAILY Milk Of Magnesia (Magnesium Hydroxide) 2,400 Mg/10 Ml Oral.susp 2,400 Mg PO PRN QHS PRN Mag64 (Magnesium Chloride) 64 Mg Tablet.er 64 Mg PO DAILY Mag-Al Plus Xs Suspension (Mag Hydrox/Al Hydrox/Simeth) 30 Ml Oral.susp 15 Ml PO PRN AFTMEALHC PRN Tablet (Pnv Cmb#95/Ferrous Fumarate/Fa) 1 Each Tablet 1 Tab PO DAILYWLUN Tylenol (Acetaminophen) 325 Mg Tablet 650 Mg PO PRN Q4HRS PRN Levothyroxine Sodium 25 Mcg Tablet 25 Mcg PO DAILY06 Aricept (Donepezil Hcl) 10 Mg Tablet 10 Mg PO DAILY Lorazepam 0.5 Mg Tablet 0.5 Mg PO TID Ranitidine Hcl 150 Mg Tablet 150 Mg PO BID Seroquel (Quetiapine Fumarate) 50 Mg Tablet 50 Mg PO BID Namenda (Memantine Hcl) 10 Mg Tablet 10 Mg PO BID Vitamin D3 (Cholecalciferol (Vitamin D3)) 1,000 Unit Tablet 1,000 Unit PO DAILY Miralax (Polyethylene Glycol 3350) 119 Gm Powder 17 Gm PO PRN DAILY PRN Diagnosis: Problems: (1) Dementia with behavioral disturbance (2) Medical clearance for psychiatric admission (3) Anxiety disorder (4) Impulse control disorder (5) Dementia, vascular, with delusions (6) Dementia, vascular, with depression (7) Dementia in Alzheimer's disease with delusions (8) Dementia in Alzheimer's disease with depression PRISCILA GUEVARA MD Nov 15, 2016 21:12
[2016-11-16] MEDS: LEVOTHYROXINE 25 MCG TABLET. PO SCH (05:01)
[2016-11-16 06:35] VITALS: BP 109/58
--- NOTE | 2016-11-16 07:33 | PN ---
DATE: 11/14/2016 SUBJECTIVE: This is a late entry 11/14/2016 covers elements not covered in my initial note. The patient remains confused, withdrawn, and has not been sexually inappropriate or aggressive. Compliant and cooperative with meds and assessment. REVIEW OF SYSTEMS: No CV, , pulmonary, eye, or ENT system symptoms on review. Reliability poor. I met with him in his room. He is lying in bed face covered with covers, but did remove it and sat down to visit with me. MENTAL STATUS EXAM: Oriented to himself. Insight, judgment, recent and remote memory, attention, concentration, fund of knowledge poor, consistent with his diagnosis mentioned in my initial note. IMPRESSION: Major neurocognitive disorder, Alzheimer, vascular with depression, delusion, and behavioral disturbance. Rest unchanged. PLAN: Continue current psychotropics Aricept 10 mg a day, Ativan 0.5 t.i.d., Namenda 10 b.i.d., Seroquel 50 three times a day, Zyprexa p.r.n., Provera 7.5 mg a day, and Cymbalta 30 mg a day. Adjust further as clinically indicated. PRISCILA GUEVARA MD DR: WALESKA/rebecca JOB#: [id number] / [id number]
[2016-11-16 07:45] LABS: BASO % 1 % (0-3); EOS # 0.4 x10^3/uL (0.0-0.7); EOS % 9 % (0-3); HEMATOCRIT 33.3 % (39.0-53.0); HEMOGLOBIN 11.4 g/dL (13.0-17.5); LYMPH # 1.3 x10^3/uL (1.0-4.8); LYMPH % 28 % (24-48); MEAN CORPUSCULAR HEMOGLOBIN 32 pg (25-35); MEAN CORPUSCULAR HGB CONC 34 g/dL (31-37); MEAN CORPUSCULAR VOLUME 94 fL (79-100); MONO # 0.5 x10^3/uL (0.0-1.1); MONO % 11 % (0-9); NEUT # 2.4 x10^3uL (1.8-7.7); NEUT % 51 % (31-73); PLATELET COUNT 88 x10^3/uL (140-400); RED BLOOD COUNT 3.56 x10^6/uL (4.30-5.70); RED CELL DISTRIBUTION WIDTH 14.3 % (11.5-14.5); WHITE BLOOD COUNT 4.7 x10^3/uL (4.0-11.0)
[2016-11-16 08:00] LABS: ALBUMIN 3.2 g/dL (3.4-5.0); ALBUMIN/GLOBULIN RATIO 0.9 (1.0-1.7); CALCIUM 8.9 mg/dL (8.5-10.1); CREATININE 1.2 mg/dL (0.7-1.3); GFR 58.4; MAGNESIUM 1.7 mg/dL (1.8-2.4); POTASSIUM 4.3 mmol/L (3.5-5.1); TOTAL BILIRUBIN 0.3 mg/dL (0.2-1.0); TOTAL PROTEIN 6.7 g/dL (6.4-8.2)
[2016-11-16] MEDS: MAGNESIUM CHLORIDE ER 64 MG TABLET.ER PO SCH (08:04)
[2016-11-16] MEDS: DULoxetine HCL 30 MG CAPSULE.DR PO SCH (08:04)
[2016-11-16] MEDS: DONEPEZIL HCL 10 MG TABLET PO SCH (08:04)
[2016-11-16] MEDS: MEMANTINE 10 MG TABLET. PO SCH ×2 (08:05→20:12)
[2016-11-16] MEDS: FAMOTIDINE 20 MG TABLET PO SCH ×2 (08:05→20:12)
[2016-11-16] MEDS: CETIRIZINE HCL 10 MG TABLET PO SCH (08:08)
[2016-11-16] MEDS: CHOLECALCIFEROL (VITAMIN D3) 1,000 UNIT TABLET PO SCH (08:08)
[2016-11-16] MEDS: medroxyPROGESTERone 5 MG TABLET PO SCH (08:08)
[2016-11-16] MEDS: QUEtiapine 50 MG TABLET. PO SCH ×3 (08:08→17:29)
[2016-11-16] MEDS: LORazepam 0.5 MG TABLET PO SCH ×3 (08:11→20:12)
[2016-11-16 09:19] LABS: PLT ESTIMATE DECREASED (ADEQUATE)
[2016-11-16] MEDS: PRENATAL MULTIVITAMIN TABLET. PO SCH (13:46)
[2016-11-16 17:02] VITALS: BP 109/59
--- NOTE | 2016-11-16 20:31 | PDOC ---
Exam West Demential Exam: West Note: Please also refer to the separate dictated note~for this date of service dictated separately.~Patient seen individually. Discussed the patient with Nursing staff reviewed the chart.~Reviewed interim history and current functioning. Reviewed vital signs,~Labs/ Radiology~and current medications noted below. Continue current treatment with the changes noted in the dictated addendum note Assessment: Vital Signs: Vital Signs Date Time Temp Pulse Resp B/P (MAP) Pulse Ox O2 Delivery O2 Flow Rate FiO2 11/16/16 17:02 98.2 75 18 109/59 (76) 98 11/14/16 16:26 97.0 11/14/16 06:26 Room Air I&O Intake and Output 11/16/16 07:00 Intake Total 840 ml Balance 840 ml Intake Oral 840 ml Labs: Laboratory Tests Test 11/16/16 07:21 White Blood Count 4.7 x10^3/uL (4.0-11.0) Red Blood Count 3.56 x10^6/uL (4.30-5.70) L Hemoglobin 11.4 g/dL (13.0-17.5) L Hematocrit 33.3 % (39.0-53.0) L Mean Corpuscular Volume 94 fL (79-100) Mean Corpuscular Hemoglobin 32 pg (25-35) Mean Corpuscular Hemoglobin Concent 34 g/dL (31-37) Red Cell Distribution Width 14.3 % (11.5-14.5) Platelet Count 88 x10^3/uL (140-400) L Neutrophils (%) (Auto) 51 % (31-73) Lymphocytes (%) (Auto) 28 % (24-48) Monocytes (%) (Auto) 11 % (0-9) H Eosinophils (%) (Auto) 9 % (0-3) H Basophils (%) (Auto) 1 % (0-3) Neutrophils # (Auto) 2.4 x10^3uL (1.8-7.7) Lymphocytes # (Auto) 1.3 x10^3/uL (1.0-4.8) Monocytes # (Auto) 0.5 x10^3/uL (0.0-1.1) Eosinophils # (Auto) 0.4 x10^3/uL (0.0-0.7) Basophils # (Auto) 0.0 x10^3/uL (0.0-0.2) Platelet Estimate Decreased (ADEQUATE) Sodium Level 141 mmol/L (136-145) Potassium Level 4.3 mmol/L (3.5-5.1) Chloride Level 108 mmol/L (98-107) H Carbon Dioxide Level 25 mmol/L (21-32) Anion Gap 8 (6-14) Blood Urea Nitrogen 21 mg/dL (8-26) Creatinine 1.2 mg/dL (0.7-1.3) Estimated GFR (Cockcroft-Gault) 58.4 BUN/Creatinine Ratio 18 (6-20) Glucose Level 87 mg/dL (70-99) Calcium Level 8.9 mg/dL (8.5-10.1) Magnesium Level 1.7 mg/dL (1.8-2.4) L Total Bilirubin 0.3 mg/dL (0.2-1.0) Aspartate Amino Transferase (AST) 29 U/L (15-37) Alanine Aminotransferase (ALT) 30 U/L (16-63) Alkaline Phosphatase 106 U/L (46-116) Total Protein 6.7 g/dL (6.4-8.2) Albumin 3.2 g/dL (3.4-5.0) L Albumin/Globulin Ratio 0.9 (1.0-1.7) L Current Medications: Meds: Current Medications Acetaminophen (Tylenol) 650 mg PRN Q4HRS PRN PO PAIN / TEMP Last administered on 11/09/16 19:25; Start 11/05/16 at 17:45 Cetirizine HCl (ZyrTEC) 10 mg DAILY PO Last administered on 11/16/16 08:08; Start 11/06/16 at 09:00 Vitamin D (Vitamin D3) 1,000 unit DAILY PO Last administered on 11/16/16 08:08 ; Start 11/06/16 at 09:00 Levothyroxine Sodium (Synthroid) 25 mcg DAILY06 PO Last administered on 05:01; Start 11/06/16 at 06:00 Al Hydroxide/Mg Hydroxide (Mylanta Plus Xs) 15 ml PRN AFTMEALHC PRN PO DYSPEPSIA; Start 11/05/16 at 17:45 Medroxyprogesterone Acetate (Provera) 5 mg DAILY PO Last administered on 09:23; Start 11/06/16 at 09:00; Stop 11/12/16 at 18:27; Status DC Multi-Ingredient Ointment (Analgesic [place]) 1 carol ann PRN QID PRN TP MUSCLE PAIN; Start 11/05/16 at 17:45 Polyethylene Glycol (miraLAX) 17 gm PRN DAILY PRN PO CONSTIPATION; Start at 09:00 Magnesium Chloride (Mag Delay) 64 mg DAILY PO Last administered on 11/16/16 08: 04; Start 11/06/16 at 09:00 Magnesium Hydroxide (Milk Of Magnesia) 2,400 mg PRN QHS PRN PO CONSTIPATION; Start 11/05/16 at 18:00 Prenat Multivit/ Force Adjustment Supervisor/Iron/Folic Ac (Multivitamin ) 1 tab DAILYWLUN PO Last administered on 11/16/16 13:46; Start 11/06/16 at 12:00 Famotidine (Pepcid) 20 mg BID PO Last administered on 11/16/16 20:12; Start at 21:00 Donepezil HCl (Aricept) 10 mg DAILY PO Last administered on 11/16/16 08:04; Start 11/06/16 at 09:00 Lorazepam (Ativan) 0.5 mg TID PO Last administered on 11/16/16 13:46; Start at 21:00; Stop 11/16/16 at 16:53; Status DC Memantine (Namenda) 10 mg BID PO Last administered on 11/16/16 20:12; Start at 21:00 Olanzapine (ZyPREXA ZYDIS) 2.5 mg PRN Q2HR PRN PO ANXIETY / AGITATION Last administered on 11/09/16 13:31; Start 11/05/16 at 17:45 Paroxetine HCl (Paxil) 10 mg DAILY PO Last administered on 11/11/16 08:21; Start 11/06/16 at 09:00; Stop 11/11/16 at 10:52; Status DC Quetiapine Fumarate (SEROquel) 50 mg BID PO Last administered on 11/09/16 08: 22; Start 11/05/16 at 21:00; Stop 11/09/16 at 14:50; Status DC Nitrofurantoin Macrocrystals (Macrobid) 100 mg BID PO Last administered on 11/10 19:29; Start 11/08/16 at 21:00; Stop 11/10/16 at 21:01; Status DC Quetiapine Fumarate (SEROquel) 50 mg BID@0900,1700 PO Last administered on 11/10 08:04; Start 11/09/16 at 17:00; Stop 11/10/16 at 14:06; Status DC Quetiapine Fumarate (SEROquel) 25 mg DAILY@1400 PO Last administered on 13:05; Start 11/10/16 at 14:00; Stop 11/10/16 at 14:06; Status DC Quetiapine Fumarate (SEROquel) 50 mg TID@0900,1400,1700 PO Last administered on 11/16/16 17:29; Start 11/10/16 at 17:00 Duloxetine HCl (Cymbalta) 30 mg DAILY PO Last administered on 11/16/16 08:04; Start 11/12/16 at 09:00 Medroxyprogesterone Acetate (Provera) 7.5 mg DAILY PO Last administered on 08:08; Start 11/13/16 at 09:00 Lorazepam (Ativan) 0.5 mg BID PO Last administered on 11/16/16 20:12; Start 11/16/16 at 21:00 Lorazepam (Ativan) 0.25 mg DAILY@1300 PO ; Start 11/17/16 at 13:00 Active Scripts Active Reported Zyprexa Zydis (Olanzapine) 5 Mg Tab.rapdis 2.5 Mg PO PRN Q2HR PRN Paxil (Paroxetine Hcl) 10 Mg Tablet 10 Mg PO DAILY Cetirizine Hcl 10 Mg Tablet 10 Mg PO DAILY Analgesic [place] (Methyl Salicylate/Menthol) 29 Gm Oint...g. 1 [place] TP PRN QID PRN Provera (Medroxyprogesterone Acetate) 5 Mg Tablet 1 Tab PO DAILY Milk Of Magnesia (Magnesium Hydroxide) 2,400 Mg/10 Ml Oral.susp 2,400 Mg PO PRN QHS PRN Mag64 (Magnesium Chloride) 64 Mg Tablet.er 64 Mg PO DAILY Mag-Al Plus Xs Suspension (Mag Hydrox/Al Hydrox/Simeth) 30 Ml Oral.susp 15 Ml PO PRN AFTMEALHC PRN Tablet (Pnv Cmb#95/Ferrous Fumarate/Fa) 1 Each Tablet 1 Tab PO DAILYWLUN Tylenol (Acetaminophen) 325 Mg Tablet 650 Mg PO PRN Q4HRS PRN Levothyroxine Sodium 25 Mcg Tablet 25 Mcg PO DAILY06 Aricept (Donepezil Hcl) 10 Mg Tablet 10 Mg PO DAILY Lorazepam 0.5 Mg Tablet 0.5 Mg PO TID Ranitidine Hcl 150 Mg Tablet 150 Mg PO BID Seroquel (Quetiapine Fumarate) 50 Mg Tablet 50 Mg PO BID Namenda (Memantine Hcl) 10 Mg Tablet 10 Mg PO BID Vitamin D3 (Cholecalciferol (Vitamin D3)) 1,000 Unit Tablet 1,000 Unit PO DAILY Miralax (Polyethylene Glycol 3350) 119 Gm Powder 17 Gm PO PRN DAILY PRN Diagnosis: Problems: (1) Dementia with behavioral disturbance (2) Anxiety disorder (3) Impulse control disorder (4) Dementia, vascular, with delusions (5) Dementia, vascular, with depression (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
[2016-11-17] MEDS: LEVOTHYROXINE 25 MCG TABLET. PO SCH (05:09)
[2016-11-17 06:18] VITALS: BP 108/65
[2016-11-17] MEDS: MAGNESIUM CHLORIDE ER 64 MG TABLET.ER PO SCH (09:36)
[2016-11-17] MEDS: DULoxetine HCL 30 MG CAPSULE.DR PO SCH (09:36)
[2016-11-17] MEDS: FAMOTIDINE 20 MG TABLET PO SCH ×2 (09:36→20:04)
[2016-11-17] MEDS: DONEPEZIL HCL 10 MG TABLET PO SCH (09:37)
[2016-11-17] MEDS: CHOLECALCIFEROL (VITAMIN D3) 1,000 UNIT TABLET PO SCH (09:37)
[2016-11-17] MEDS: medroxyPROGESTERone 5 MG TABLET PO SCH (09:37)
[2016-11-17] MEDS: MEMANTINE 10 MG TABLET. PO SCH ×2 (09:37→20:04)
[2016-11-17] MEDS: QUEtiapine 50 MG TABLET. PO SCH ×3 (09:37→17:48)
[2016-11-17] MEDS: CETIRIZINE HCL 10 MG TABLET PO SCH (09:37)
[2016-11-17] MEDS: LORazepam 0.5 MG TABLET PO SCH ×3 (09:38→20:04)
[2016-11-17] MEDS: PRENATAL MULTIVITAMIN TABLET. PO SCH (09:38)
--- NOTE | 2016-11-17 11:28 | PN ---
DATE: 11/15/2016 SUBJECTIVE: This is late entry 11/15/2016 covers elements not covered in my initial note. Per nursing report, the patient has been withdrawn and gets back to his room after each meal; otherwise, not aggressive and certainly remains confused. REVIEW OF SYSTEMS: No CV, , pulmonary, eye, or ENT system symptoms on review. This note covers elements not covered in my initial note. MENTAL STATUS EXAM: Oriented to himself. Insight, judgment, recent and remote memory, attention, concentration, and fund of knowledge poor consistent with his diagnosis. IMPRESSION: Major neurocognitive disorder, Alzheimer, vascular with depression, delusion, behavioral disturbance; anxiety disorder, unspecified; and impulse control disorder, unspecified. PLAN: Continue Aricept 10 mg a day, Ativan 0.5 t.i.d., Namenda 10 b.i.d., Seroquel 50 mg 3 times a day, Zyprexa p.r.n., Provera 7.5 mg a day, and Cymbalta 30 mg a day. We will go ahead and reduce the Ativan to 0.5 mg in the morning and evening and 0.25 in the afternoon as a gradual taper and may need to increase Seroquel as needed. PRISCILA GUEVARA MD DR: WALESKA/rebecca JOB#: [id number] / [id number]
[2016-11-17 15:58] VITALS: BP 107/67
--- NOTE | 2016-11-17 19:56 | PDOC ---
Exam West Demential Exam: West Note: Please also refer to the separate dictated note~for this date of service dictated separately.~Patient seen individually. Discussed the patient with Nursing staff reviewed the chart.~Reviewed interim history and current functioning. Reviewed vital signs,~Labs/ Radiology~and current medications noted below. Continue current treatment with the changes noted in the dictated addendum note Assessment: Vital Signs: Vital Signs Date Time Temp Pulse Resp B/P (MAP) Pulse Ox O2 Delivery O2 Flow Rate FiO2 11/17/16 15:58 98.0 88 18 107/67 (80) 97 11/14/16 16:26 97.0 11/14/16 06:26 Room Air I&O Intake and Output 11/17/16 07:00 Intake Total 1320 ml Balance 1320 ml Intake Oral 1320 ml Current Medications: Meds: Current Medications Acetaminophen (Tylenol) 650 mg PRN Q4HRS PRN PO PAIN / TEMP Last administered on 11/09/16 19:25; Start 11/05/16 at 17:45 Cetirizine HCl (ZyrTEC) 10 mg DAILY PO Last administered on 11/17/16 09:37; Start 11/06/16 at 09:00 Vitamin D (Vitamin D3) 1,000 unit DAILY PO Last administered on 11/17/16 09:37 ; Start 11/06/16 at 09:00 Levothyroxine Sodium (Synthroid) 25 mcg DAILY06 PO Last administered on 05:09; Start 11/06/16 at 06:00 Al Hydroxide/Mg Hydroxide (Mylanta Plus Xs) 15 ml PRN AFTMEALHC PRN PO DYSPEPSIA; Start 11/05/16 at 17:45 Medroxyprogesterone Acetate (Provera) 5 mg DAILY PO Last administered on 09:23; Start 11/06/16 at 09:00; Stop 11/12/16 at 18:27; Status DC Multi-Ingredient Ointment (Analgesic [place]) 1 carol ann PRN QID PRN TP MUSCLE PAIN; Start 11/05/16 at 17:45 Polyethylene Glycol (miraLAX) 17 gm PRN DAILY PRN PO CONSTIPATION; Start at 09:00 Magnesium Chloride (Mag Delay) 64 mg DAILY PO Last administered on 11/17/16 09: 36; Start 11/06/16 at 09:00 Magnesium Hydroxide (Milk Of Magnesia) 2,400 mg PRN QHS PRN PO CONSTIPATION; Start 11/05/16 at 18:00 Prenat Multivit/ [facility]/Iron/Folic Ac (Multivitamin ) 1 tab DAILYWLUN PO Last administered on 11/17/16 09:38; Start 11/06/16 at 12:00 Famotidine (Pepcid) 20 mg BID PO Last administered on 11/17/16 09:36; Start at 21:00 Donepezil HCl (Aricept) 10 mg DAILY PO Last administered on 11/17/16 09:37; Start 11/06/16 at 09:00 Lorazepam (Ativan) 0.5 mg TID PO Last administered on 11/16/16 13:46; Start at 21:00; Stop 11/16/16 at 16:53; Status DC Memantine (Namenda) 10 mg BID PO Last administered on 11/17/16 09:37; Start at 21:00 Olanzapine (ZyPREXA ZYDIS) 2.5 mg PRN Q2HR PRN PO ANXIETY / AGITATION Last administered on 11/09/16 13:31; Start 11/05/16 at 17:45 Paroxetine HCl (Paxil) 10 mg DAILY PO Last administered on 11/11/16 08:21; Start 11/06/16 at 09:00; Stop 11/11/16 at 10:52; Status DC Quetiapine Fumarate (SEROquel) 50 mg BID PO Last administered on 11/09/16 08: 22; Start 11/05/16 at 21:00; Stop 11/09/16 at 14:50; Status DC Nitrofurantoin Macrocrystals (Macrobid) 100 mg BID PO Last administered on 11/10 19:29; Start 11/08/16 at 21:00; Stop 11/10/16 at 21:01; Status DC Quetiapine Fumarate (SEROquel) 50 mg BID@0900,1700 PO Last administered on 11/10 08:04; Start 11/09/16 at 17:00; Stop 5/31/17 at 14:06; Status DC Quetiapine Fumarate (SEROquel) 25 mg DAILY@1400 PO Last administered on 13:05; Start 11/10/16 at 14:00; Stop 11/10/16 at 14:06; Status DC Quetiapine Fumarate (SEROquel) 50 mg TID@0900,1400,1700 PO Last administered on 11/17/16 17:48; Start 11/10/16 at 17:00 Duloxetine HCl (Cymbalta) 30 mg DAILY PO Last administered on 11/17/16 09:36; Start 11/12/16 at 09:00 Medroxyprogesterone Acetate (Provera) 7.5 mg DAILY PO Last administered on 09:37; Start 11/13/16 at 09:00 Lorazepam (Ativan) 0.5 mg BID PO Last administered on 11/17/16 09:38; Start 11/16/16 at 21:00 Lorazepam (Ativan) 0.25 mg DAILY@1300 PO Last administered on 11/17/16 13:17; Start 11/17/16 at 13:00 Active Scripts Active Reported Zyprexa Zydis (Olanzapine) 5 Mg Tab.rapdis 2.5 Mg PO PRN Q2HR PRN Paxil (Paroxetine Hcl) 10 Mg Tablet 10 Mg PO DAILY Cetirizine Hcl 10 Mg Tablet 10 Mg PO DAILY Analgesic [place] (Methyl Salicylate/Menthol) 29 Gm Oint...g. 1 [place] TP PRN QID PRN Provera (Medroxyprogesterone Acetate) 5 Mg Tablet 1 Tab PO DAILY Milk Of Magnesia (Magnesium Hydroxide) 2,400 Mg/10 Ml Oral.susp 2,400 Mg PO PRN QHS PRN Mag64 (Magnesium Chloride) 64 Mg Tablet.er 64 Mg PO DAILY Mag-Al Plus Xs Suspension (Mag Hydrox/Al Hydrox/Simeth) 30 Ml Oral.susp 15 Ml PO PRN AFTMEALHC PRN Tablet (Pnv Cmb#95/Ferrous Fumarate/Fa) 1 Each Tablet 1 Tab PO DAILYWLUN Tylenol (Acetaminophen) 325 Mg Tablet 650 Mg PO PRN Q4HRS PRN Levothyroxine Sodium 25 Mcg Tablet 25 Mcg PO DAILY06 Aricept (Donepezil Hcl) 10 Mg Tablet 10 Mg PO DAILY Lorazepam 0.5 Mg Tablet 0.5 Mg PO TID Ranitidine Hcl 150 Mg Tablet 150 Mg PO BID Seroquel (Quetiapine Fumarate) 50 Mg Tablet 50 Mg PO BID Namenda (Memantine Hcl) 10 Mg Tablet 10 Mg PO BID Vitamin D3 (Cholecalciferol (Vitamin D3)) 1,000 Unit Tablet 1,000 Unit PO DAILY Miralax (Polyethylene Glycol 3350) 119 Gm Powder 17 Gm PO PRN DAILY PRN Diagnosis: Problems: (1) Dementia with behavioral disturbance (2) Medical clearance for psychiatric admission (3) Anxiety disorder (4) Impulse control disorder (5) Dementia, vascular, with delusions (6) Dementia, vascular, 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
[2016-11-18 02:24] LABS: BACTERIA,URINE 0 /HPF (0-FEW); BILIRUBIN,URINE NEG (NEG); CLARITY,URINE CLEAR; COLOR,URINE YELLOW; GLUCOSE,URINE NEG (NEG); NITRITE,URINE NEG (NEG); RBC,URINE 0 /HPF (0-2); SQUAMOUS EPITHELIAL CELL,UR OCC /LPF; UROBILINOGEN,URINE 0.2 mg/dL (0.2 mg/dL); WBC,URINE RARE /HPF (0-4)
[2016-11-18] MEDS: LEVOTHYROXINE 25 MCG TABLET. PO SCH (05:04)
[2016-11-18 06:00] VITALS: BP 114/74
--- NOTE | 2016-11-18 06:50 | PN ---
DATE: 11/16/2016 SUBJECTIVE: This is a late entry 11/16/2016 covers elements not covered in my initial note. The patient remains confused per nursing report. He was incontinent and had a shower, but was cooperative with this, withdrawn, spends much time in his room, agitated with the music therapist, and aggressive at times. REVIEW OF SYSTEMS: No CV, , pulmonary, eye, ENT or system symptoms on review. Reliability poor. MENTAL STATUS EXAM: Oriented to himself. Insight, judgment, recent and remote memory, attention, concentration, fund of knowledge poor, consistent with his diagnosis. LABORATORY DATA: Labs reviewed. IMPRESSION: Major neurocognitive disorder, Alzheimer, vascular with depression, delusion and behavioral disturbance; anxiety disorder, unspecified; and impulse control disorder, unspecified. PLAN: Continue current psychotropics Aricept 10 mg a day, Namenda 10 b.i.d., Ativan 0.5 b.i.d. and 0.25 at 13:00, Seroquel 50 mg 3 times a day, Zyprexa p.r.n., Provera 7.5 mg a day, and Cymbalta 30 mg a day. Adjust further as clinically indicated. PRISCILA GUEVARA MD DR: WALESKA/rebecca JOB#: [id number] / [id number]
[2016-11-18] MEDS: DONEPEZIL HCL 10 MG TABLET PO SCH (09:03)
[2016-11-18] MEDS: MAGNESIUM CHLORIDE ER 64 MG TABLET.ER PO SCH (09:03)
[2016-11-18] MEDS: FAMOTIDINE 20 MG TABLET PO SCH ×2 (09:04→20:47)
[2016-11-18] MEDS: QUEtiapine 50 MG TABLET. PO SCH ×3 (09:04→16:05)
[2016-11-18] MEDS: medroxyPROGESTERone 5 MG TABLET PO SCH (09:04)
[2016-11-18] MEDS: CHOLECALCIFEROL (VITAMIN D3) 1,000 UNIT TABLET PO SCH (09:04)
[2016-11-18] MEDS: MEMANTINE 10 MG TABLET. PO SCH ×2 (09:04→20:47)
[2016-11-18] MEDS: CETIRIZINE HCL 10 MG TABLET PO SCH (09:04)
[2016-11-18] MEDS: DULoxetine HCL 30 MG CAPSULE.DR PO SCH (09:04)
[2016-11-18] MEDS: LORazepam 0.5 MG TABLET PO SCH ×3 (09:05→20:46)
[2016-11-18] MEDS: PRENATAL MULTIVITAMIN TABLET. PO SCH (11:44)
[2016-11-18 15:41] VITALS: BP 113/68
--- NOTE | 2016-11-18 21:24 | PDOC ---
Exam West Demential Exam: West Note: Please also refer to the separate dictated note~for this date of service dictated separately.~Patient seen individually. Discussed the patient with Nursing staff reviewed the chart.~Reviewed interim history and current functioning. Reviewed vital signs,~Labs/ Radiology~and current medications noted below. Continue current treatment with the changes noted in the dictated addendum note Assessment: Vital Signs: Vital Signs Date Time Temp Pulse Resp B/P (MAP) Pulse Ox O2 Delivery O2 Flow Rate FiO2 11/18/16 15:41 98.3 77 18 113/68 (83) 96 Room Air 11/14/16 16:26 97.0 I&O Intake and Output 11/18/16 07:00 Intake Total 1440 ml Balance 1440 ml Intake Oral 1440 ml Labs: Laboratory Tests Test 11/18/16 02:00 Urine Collection Type Unknown Urine Color Yellow Urine Clarity Clear Urine pH 6.5 Urine Specific [place] 1.020 Urine Protein Neg (NEG-TRACE) Urine Glucose (UA) Neg mg/dL (NEG) Urine Ketones (Stick) Neg mg/dL (NEG) Urine Blood Neg (NEG) Urine Nitrite Neg (NEG) Urine Bilirubin Neg (NEG) Urine Urobilinogen Dipstick 0.2 mg/dL (0.2 mg/dL) Urine Leukocyte Esterase Neg (NEG) Urine RBC 0 /HPF (0-2) Urine WBC Rare /HPF (0-4) Urine Squamous Epithelial Cells Occ /LPF Urine Bacteria 0 /HPF (0-FEW) Current Medications: Meds: Current Medications Acetaminophen (Tylenol) 650 mg PRN Q4HRS PRN PO PAIN / TEMP Last administered on 11/09/16 19:25; Start 11/05/16 at 17:45 Cetirizine HCl (ZyrTEC) 10 mg DAILY PO Last administered on 11/18/16 09:04; Start 11/06/16 at 09:00 Vitamin D (Vitamin D3) 1,000 unit DAILY PO Last administered on 11/18/16 09:04 ; Start 11/06/16 at 09:00 Levothyroxine Sodium (Synthroid) 25 mcg DAILY06 PO Last administered on 05:04; Start 11/06/16 at 06:00 Al Hydroxide/Mg Hydroxide (Mylanta Plus Xs) 15 ml PRN AFTMEALHC PRN PO DYSPEPSIA; Start 11/05/16 at 17:45 Medroxyprogesterone Acetate (Provera) 5 mg DAILY PO Last administered on 09:23; Start 11/06/16 at 09:00; Stop 11/12/16 at 18:27; Status DC Multi-Ingredient Ointment (Analgesic [place]) 1 carol ann PRN QID PRN TP MUSCLE PAIN; Start 11/05/16 at 17:45 Polyethylene Glycol (miraLAX) 17 gm PRN DAILY PRN PO CONSTIPATION; Start at 09:00 Magnesium Chloride (Mag Delay) 64 mg DAILY PO Last administered on 11/18/16 09: 03; Start 11/06/16 at 09:00 Magnesium Hydroxide (Milk Of Magnesia) 2,400 mg PRN QHS PRN PO CONSTIPATION; Start 11/05/16 at 18:00 Prenat Multivit/ [place]/Iron/Folic Ac (Multivitamin ) 1 tab DAILYWLUN PO Last administered on 11/18/16 11:44; Start 11/06/16 at 12:00 Famotidine (Pepcid) 20 mg BID PO Last administered on 11/18/16 20:47; Start at 21:00 Donepezil HCl (Aricept) 10 mg DAILY PO Last administered on 11/18/16 09:03; Start 11/06/16 at 09:00 Lorazepam (Ativan) 0.5 mg TID PO Last administered on 11/16/16 13:46; Start at 21:00; Stop 11/16/16 at 16:53; Status DC Memantine (Namenda) 10 mg BID PO Last administered on 11/18/16 20:47; Start at 21:00 Olanzapine (ZyPREXA ZYDIS) 2.5 mg PRN Q2HR PRN PO ANXIETY / AGITATION Last administered on 11/09/16 13:31; Start 11/05/16 at 17:45 Paroxetine HCl (Paxil) 10 mg DAILY PO Last administered on 11/11/16 08:21; Start 11/06/16 at 09:00; Stop 11/11/16 at 10:52; Status DC Quetiapine Fumarate (SEROquel) 50 mg BID PO Last administered on 11/09/16 08: 22; Start 11/05/16 at 21:00; Stop 11/09/16 at 14:50; Status DC Nitrofurantoin Macrocrystals (Macrobid) 100 mg BID PO Last administered on 11/10 19:29; Start 11/08/16 at 21:00; Stop 11/10/16 at 21:01; Status DC Quetiapine Fumarate (SEROquel) 50 mg BID@0900,1700 PO Last administered on 11/10 08:04; Start 11/09/16 at 17:00; Stop 11/10/16 at 14:06; Status DC Quetiapine Fumarate (SEROquel) 25 mg DAILY@1400 PO Last administered on 13:05; Start 11/10/16 at 14:00; Stop 11/10/16 at 14:06; Status DC Quetiapine Fumarate (SEROquel) 50 mg TID@0900,1400,1700 PO Last administered on 11/18/16 16:05; Start 11/10/16 at 17:00 Duloxetine HCl (Cymbalta) 30 mg DAILY PO Last administered on 11/18/16 09:04; Start 11/12/16 at 09:00 Medroxyprogesterone Acetate (Provera) 7.5 mg DAILY PO Last administered on 09:04; Start 11/13/16 at 09:00 Lorazepam (Ativan) 0.5 mg BID PO Last administered on 11/18/16 20:46; Start 11/16/16 at 21:00 Lorazepam (Ativan) 0.25 mg DAILY@1300 PO Last administered on 11/18/16 11:44; Start 11/17/16 at 13:00 Active Scripts Active Reported Zyprexa Zydis (Olanzapine) 5 Mg Tab.rapdis 2.5 Mg PO PRN Q2HR PRN Paxil (Paroxetine Hcl) 10 Mg Tablet 10 Mg PO DAILY Cetirizine Hcl 10 Mg Tablet 10 Mg PO DAILY Analgesic [place] (Methyl Salicylate/Menthol) 29 Gm Oint...g. 1 Carol Ann TP PRN QID PRN Provera (Medroxyprogesterone Acetate) 5 Mg Tablet 1 Tab PO DAILY Milk Of Magnesia (Magnesium Hydroxide) 2,400 Mg/10 Ml Oral.susp 2,400 Mg PO PRN QHS PRN Mag64 (Magnesium Chloride) 64 Mg Tablet.er 64 Mg PO DAILY Mag-Al Plus Xs Suspension (Mag Hydrox/Al Hydrox/Simeth) 30 Ml Oral.susp 15 Ml PO PRN AFTMEALHC PRN Tablet (Pnv Cmb#95/Ferrous Fumarate/Fa) 1 Each Tablet 1 Tab PO DAILYWLUN Tylenol (Acetaminophen) 325 Mg Tablet 650 Mg PO PRN Q4HRS PRN Levothyroxine Sodium 25 Mcg Tablet 25 Mcg PO DAILY06 Aricept (Donepezil Hcl) 10 Mg Tablet 10 Mg PO DAILY Lorazepam 0.5 Mg Tablet 0.5 Mg PO TID Ranitidine Hcl 150 Mg Tablet 150 Mg PO BID Seroquel (Quetiapine Fumarate) 50 Mg Tablet 50 Mg PO BID Namenda (Memantine Hcl) 10 Mg Tablet 10 Mg PO BID Vitamin D3 (Cholecalciferol (Vitamin D3)) 1,000 Unit Tablet 1,000 Unit PO DAILY Miralax (Polyethylene Glycol 3350) 119 Gm Powder 17 Gm PO PRN DAILY PRN Diagnosis: Problems: (1) Dementia with behavioral disturbance (2) Anxiety disorder (3) Impulse control disorder (4) Dementia, vascular, with delusions (5) Dementia, vascular, with depression (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
[2016-11-19] MEDS: LEVOTHYROXINE 25 MCG TABLET. PO SCH (05:47)
[2016-11-19 06:40] VITALS: BP 149/75
[2016-11-19] MEDS: medroxyPROGESTERone 5 MG TABLET PO SCH (07:32)
[2016-11-19] MEDS: QUEtiapine 50 MG TABLET. PO SCH ×3 (07:32→17:22)
[2016-11-19] MEDS: CETIRIZINE HCL 10 MG TABLET PO SCH (07:32)
[2016-11-19] MEDS: FAMOTIDINE 20 MG TABLET PO SCH ×2 (07:32→20:32)
[2016-11-19] MEDS: CHOLECALCIFEROL (VITAMIN D3) 1,000 UNIT TABLET PO SCH (07:32)
[2016-11-19] MEDS: DONEPEZIL HCL 10 MG TABLET PO SCH (07:33)
[2016-11-19] MEDS: MAGNESIUM CHLORIDE ER 64 MG TABLET.ER PO SCH ×2 (07:33→20:33)
[2016-11-19] MEDS: DULoxetine HCL 30 MG CAPSULE.DR PO SCH (07:33)
[2016-11-19] MEDS: MEMANTINE 10 MG TABLET. PO SCH ×2 (07:33→20:31)
[2016-11-19] MEDS: LORazepam 0.5 MG TABLET PO SCH ×3 (07:36→20:32)
[2016-11-19] MEDS: PRENATAL MULTIVITAMIN TABLET. PO SCH (12:31)
--- NOTE | 2016-11-19 21:43 | PDOC ---
Exam West Demential Exam: West Note: Please also refer to the separate dictated note~for this date of service dictated separately.~Patient seen individually. Discussed the patient with Nursing staff reviewed the chart.~Reviewed interim history and current functioning. Reviewed vital signs,~Labs/ Radiology~and current medications noted below. Continue current treatment with the changes noted in the dictated addendum note Assessment: Vital Signs: Vital Signs Date Time Temp Pulse Resp B/P (MAP) Pulse Ox O2 Delivery O2 Flow Rate FiO2 11/19/16 06:40 98.0 66 18 149/75 (99) 96 11/18/16 15:41 Room Air 11/14/16 16:26 97.0 I&O Intake and Output 11/19/16 07:00 Intake Total 960 ml Balance 960 ml Intake Oral 960 ml Current Medications: Meds: Current Medications Acetaminophen (Tylenol) 650 mg PRN Q4HRS PRN PO PAIN / TEMP Last administered on 11/09/16 19:25; Start 11/05/16 at 17:45 Cetirizine HCl (ZyrTEC) 10 mg DAILY PO Last administered on 11/19/16 07:32; Start 11/06/16 at 09:00 Vitamin D (Vitamin D3) 1,000 unit DAILY PO Last administered on 11/19/16 07:32 ; Start 11/06/16 at 09:00 Levothyroxine Sodium (Synthroid) 25 mcg DAILY06 PO Last administered on 05:47; Start 11/06/16 at 06:00 Al Hydroxide/Mg Hydroxide (Mylanta Plus Xs) 15 ml PRN AFTMEALHC PRN PO DYSPEPSIA; Start 11/05/16 at 17:45 Medroxyprogesterone Acetate (Provera) 5 mg DAILY PO Last administered on 09:23; Start 11/06/16 at 09:00; Stop 11/12/16 at 18:27; Status DC Multi-Ingredient Ointment (Analgesic [place]) 1 carol ann PRN QID PRN TP MUSCLE PAIN; Start 11/05/16 at 17:45 Polyethylene Glycol (miraLAX) 17 gm PRN DAILY PRN PO CONSTIPATION; Start at 09:00 Magnesium Chloride (Mag Delay) 64 mg DAILY PO Last administered on 11/19/16 07: 33; Start 11/06/16 at 09:00; Stop 11/19/16 at 15:08; Status DC Magnesium Hydroxide (Milk Of Magnesia) 2,400 mg PRN QHS PRN PO CONSTIPATION; Start 11/05/16 at 18:00 Prenat Multivit/ [place]/Iron/Folic Ac (Multivitamin ) 1 tab DAILYWLUN PO Last administered on 11/19/16 12:31; Start 11/06/16 at 12:00 Famotidine (Pepcid) 20 mg BID PO Last administered on 11/19/16 20:32; Start at 21:00 Donepezil HCl (Aricept) 10 mg DAILY PO Last administered on 11/19/16 07:33; Start 11/06/16 at 09:00 Lorazepam (Ativan) 0.5 mg TID PO Last administered on 11/16/16 13:46; Start at 21:00; Stop 11/16/16 at 16:53; Status DC Memantine (Namenda) 10 mg BID PO Last administered on 11/19/16 20:31; Start at 21:00 Olanzapine (ZyPREXA ZYDIS) 2.5 mg PRN Q2HR PRN PO ANXIETY / AGITATION Last administered on 11/19/16 20:57; Start 11/05/16 at 17:45 Paroxetine HCl (Paxil) 10 mg DAILY PO Last administered on 11/11/16 08:21; Start 11/06/16 at 09:00; Stop 11/11/16 at 10:52; Status DC Quetiapine Fumarate (SEROquel) 50 mg BID PO Last administered on 11/09/16 08: 22; Start 11/05/16 at 21:00; Stop 11/09/16 at 14:50; Status DC Nitrofurantoin Macrocrystals (Macrobid) 100 mg BID PO Last administered on 11/10 19:29; Start 11/08/16 at 21:00; Stop 11/10/16 at 21:01; Status DC Quetiapine Fumarate (SEROquel) 50 mg BID@0900,1700 PO Last administered on 11/10 08:04; Start 11/09/16 at 17:00; Stop 11/10/16 at 14:06; Status DC Quetiapine Fumarate (SEROquel) 25 mg DAILY@1400 PO Last administered on 13:05; Start 11/10/16 at 14:00; Stop 11/10/16 at 14:06; Status DC Quetiapine Fumarate (SEROquel) 50 mg TID@0900,1400,1700 PO Last administered on 11/19/16 17:22; Start 11/10/16 at 17:00 Duloxetine HCl (Cymbalta) 30 mg DAILY PO Last administered on 11/19/16 07:33; Start 11/12/16 at 09:00 Medroxyprogesterone Acetate (Provera) 7.5 mg DAILY PO Last administered on 07:32; Start 11/13/16 at 09:00 Lorazepam (Ativan) 0.5 mg BID PO Last administered on 11/19/16 20:32; Start 11/16/16 at 21:00 Lorazepam (Ativan) 0.25 mg DAILY@1300 PO Last administered on 11/19/16 12:31; Start 11/17/16 at 13:00 Magnesium Chloride (Mag Delay) 64 mg BID PO Last administered on 11/19/16 20:33 ; Start 11/19/16 at 21:00 Oxcarbazepine (Trileptal) 150 mg BID92 PO ; Start 11/20/16 at 09:00 Active Scripts Active Reported Zyprexa Zydis (Olanzapine) 5 Mg Tab.rapdis 2.5 Mg PO PRN Q2HR PRN Paxil (Paroxetine Hcl) 10 Mg Tablet 10 Mg PO DAILY Cetirizine Hcl 10 Mg Tablet 10 Mg PO DAILY Analgesic [place] (Methyl Salicylate/Menthol) 29 Gm Oint...g. 1 [place] TP PRN QID PRN Provera (Medroxyprogesterone Acetate) 5 Mg Tablet 1 Tab PO DAILY Milk Of Magnesia (Magnesium Hydroxide) 2,400 Mg/10 Ml Oral.susp 2,400 Mg PO PRN QHS PRN Mag64 (Magnesium Chloride) 64 Mg Tablet.er 64 Mg PO DAILY Mag-Al Plus Xs Suspension (Mag Hydrox/Al Hydrox/Simeth) 30 Ml Oral.susp 15 Ml PO PRN AFTMEALHC PRN Tablet (Pnv Cmb#95/Ferrous Fumarate/Fa) 1 Each Tablet 1 Tab PO DAILYWLUN Tylenol (Acetaminophen) 325 Mg Tablet 650 Mg PO PRN Q4HRS PRN Levothyroxine Sodium 25 Mcg Tablet 25 Mcg PO DAILY06 Aricept (Donepezil Hcl) 10 Mg Tablet 10 Mg PO DAILY Lorazepam 0.5 Mg Tablet 0.5 Mg PO TID Ranitidine Hcl 150 Mg Tablet 150 Mg PO BID Seroquel (Quetiapine Fumarate) 50 Mg Tablet 50 Mg PO BID Namenda (Memantine Hcl) 10 Mg Tablet 10 Mg PO BID Vitamin D3 (Cholecalciferol (Vitamin D3)) 1,000 Unit Tablet 1,000 Unit PO DAILY Miralax (Polyethylene Glycol 3350) 119 Gm Powder 17 Gm PO PRN DAILY PRN Diagnosis: Problems: (1) Dementia with behavioral disturbance (2) Anxiety disorder (3) Impulse control disorder (4) Dementia, vascular, with delusions (5) Dementia, vascular, with depression (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
--- NOTE | 2016-11-20 05:04 | PN ---
DATE: 11/17/2016 This late entry for 11/17/2016 covers elements not covered in my initial note. SUBJECTIVE: Overall, the patient remains confused, withdrawn, but has not been aggressive, not sexually aggressive. REVIEW OF SYSTEMS: No CV, , pulmonary, eye, ENT system symptoms on review. Reliability poor. MENTAL STATUS EXAM: Oriented to himself. Insight, judgment, recent and remote memory, attention, concentration, fund of knowledge poor, consistent with his diagnosis mentioned in my initial note. IMPRESSION: Major neurocognitive disorder, Alzheimer, vascular with depression, delusion, behavioral disturbance. PLAN: Continue psychotropics mentioned in my initial note. Adjust as clinically indicated. MAN Laina GUEVARA MD DR: WALESKA/rebecca JOB#: [id number] / [id number]
--- NOTE | 2016-11-20 05:08 | PN ---
DATE: 11/18/2016 This late entry for 11/18/2016 covers elements not covered in my initial note. SUBJECTIVE: The patient was staffed at a treatment team meeting with the entire team and seen individually. He remains confused, but has not been aggressive sexually or otherwise. REVIEW OF SYSTEMS: No CV, , eye, ENT, pulmonary system symptoms on review. Reliability poor. MENTAL STATUS EXAM: Oriented to himself. Insight, judgment, recent and remote memory, attention, concentration, fund of knowledge poor, consistent with his diagnosis mentioned in my initial note. LABORATORY DATA: Reviewed. PLAN: Continue psychotropics mentioned in my initial note for now. MAN Laina GUEVARA MD DR: WALESKA/rebecca JOB#: [id number] / [id number]
[2016-11-20] MEDS: LEVOTHYROXINE 25 MCG TABLET. PO SCH (05:25)
[2016-11-20 06:39] VITALS: BP 144/76
[2016-11-20] MEDS: QUEtiapine 50 MG TABLET. PO SCH ×3 (07:55→17:49)
[2016-11-20] MEDS: CHOLECALCIFEROL (VITAMIN D3) 1,000 UNIT TABLET PO SCH (07:55)
[2016-11-20] MEDS: DULoxetine HCL 30 MG CAPSULE.DR PO SCH (07:55)
[2016-11-20] MEDS: DONEPEZIL HCL 10 MG TABLET PO SCH (07:55)
[2016-11-20] MEDS: MEMANTINE 10 MG TABLET. PO SCH ×2 (07:55→22:11)
[2016-11-20] MEDS: CETIRIZINE HCL 10 MG TABLET PO SCH (07:55)
[2016-11-20] MEDS: FAMOTIDINE 20 MG TABLET PO SCH ×2 (07:55→22:10)
[2016-11-20] MEDS: MAGNESIUM CHLORIDE ER 64 MG TABLET.ER PO SCH ×2 (07:55→22:10)
[2016-11-20] MEDS: medroxyPROGESTERone 5 MG TABLET PO SCH (07:56)
[2016-11-20] MEDS: OXcarbazepine 150 MG TABLET. PO SCH ×2 (07:57→12:37)
[2016-11-20] MEDS: LORazepam 0.5 MG TABLET PO SCH ×3 (07:57→22:11)
--- NOTE | 2016-11-20 11:24 | PDOC ---
Exam West Demential Exam: West Note: Please also refer to the separate dictated note~for this date of service dictated separately.~Patient seen individually. Discussed the patient with Nursing staff reviewed the chart.~Reviewed interim history and current functioning. Reviewed vital signs,~Labs/ Radiology~and current medications noted below. Continue current treatment with the changes noted in the dictated addendum note Assessment: Vital Signs: Vital Signs Date Time Temp Pulse Resp B/P (MAP) Pulse Ox O2 Delivery O2 Flow Rate FiO2 11/20/16 06:39 98.5 74 18 144/76 (98) 98 Room Air 11/14/16 16:26 97.0 I&O Intake and Output 11/20/16 07:00 Intake Total 720 ml Balance 720 ml Intake Oral 720 ml Current Medications: Meds: Current Medications Acetaminophen (Tylenol) 650 mg PRN Q4HRS PRN PO PAIN / TEMP Last administered on 11/09/16 19:25; Start 11/05/16 at 17:45 Cetirizine HCl (ZyrTEC) 10 mg DAILY PO Last administered on 11/20/16 07:55; Start 11/06/16 at 09:00 Vitamin D (Vitamin D3) 1,000 unit DAILY PO Last administered on 11/20/16 07:55 ; Start 11/06/16 at 09:00 Levothyroxine Sodium (Synthroid) 25 mcg DAILY06 PO Last administered on 05:25; Start 11/06/16 at 06:00 Al Hydroxide/Mg Hydroxide (Mylanta Plus Xs) 15 ml PRN AFTMEALHC PRN PO DYSPEPSIA; Start 11/05/16 at 17:45 Medroxyprogesterone Acetate (Provera) 5 mg DAILY PO Last administered on 09:23; Start 11/06/16 at 09:00; Stop 11/12/16 at 18:27; Status DC Multi-Ingredient Ointment (Analgesic [place]) 1 carol ann PRN QID PRN TP MUSCLE PAIN; Start 11/05/16 at 17:45 Polyethylene Glycol (miraLAX) 17 gm PRN DAILY PRN PO CONSTIPATION; Start at 09:00 Magnesium Chloride (Mag Delay) 64 mg DAILY PO Last administered on 11/19/16 07: 33; Start 11/06/16 at 09:00; Stop 11/19/16 at 15:08; Status DC Magnesium Hydroxide (Milk Of Magnesia) 2,400 mg PRN QHS PRN PO CONSTIPATION; Start 11/05/16 at 18:00 Prenat Multivit/ [place]/Iron/Folic Ac (Multivitamin ) 1 tab DAILYWLUN PO Last administered on 11/19/16 12:31; Start 11/06/16 at 12:00 Famotidine (Pepcid) 20 mg BID PO Last administered on 11/20/16 07:55; Start at 21:00 Donepezil HCl (Aricept) 10 mg DAILY PO Last administered on 11/20/16 07:55; Start 11/06/16 at 09:00 Lorazepam (Ativan) 0.5 mg TID PO Last administered on 11/16/16 13:46; Start at 21:00; Stop 11/16/16 at 16:53; Status DC Memantine (Namenda) 10 mg BID PO Last administered on 11/20/16 07:55; Start at 21:00 Olanzapine (ZyPREXA ZYDIS) 2.5 mg PRN Q2HR PRN PO ANXIETY / AGITATION Last administered on 11/19/16 20:57; Start 11/05/16 at 17:45 Paroxetine HCl (Paxil) 10 mg DAILY PO Last administered on 11/11/16 08:21; Start 11/06/16 at 09:00; Stop 11/11/16 at 10:52; Status DC Quetiapine Fumarate (SEROquel) 50 mg BID PO Last administered on 11/09/16 08: 22; Start 11/05/16 at 21:00; Stop 11/09/16 at 14:50; Status DC Nitrofurantoin Macrocrystals (Macrobid) 100 mg BID PO Last administered on 11/10 19:29; Start 11/08/16 at 21:00; Stop 11/10/16 at 21:01; Status DC Quetiapine Fumarate (SEROquel) 50 mg BID@0900,1700 PO Last administered on 11/10 08:04; Start 11/09/16 at 17:00; Stop 11/10/16 at 14:06; Status DC Quetiapine Fumarate (SEROquel) 25 mg DAILY@1400 PO Last administered on 13:05; Start 11/10/16 at 14:00; Stop 11/10/16 at 14:06; Status DC Quetiapine Fumarate (SEROquel) 50 mg TID@0900,1400,1700 PO Last administered on 11/20/16 07:55; Start 11/10/16 at 17:00 Duloxetine HCl (Cymbalta) 30 mg DAILY PO Last administered on 11/20/16 07:55; Start 11/12/16 at 09:00 Medroxyprogesterone Acetate (Provera) 7.5 mg DAILY PO Last administered on 11/20 07:56; Start 11/13/16 at 09:00 Lorazepam (Ativan) 0.5 mg BID PO Last administered on 11/20/16 07:57; Start at 21:00 Lorazepam (Ativan) 0.25 mg DAILY@1300 PO Last administered on 11/19/16 12:31; Start 11/17/16 at 13:00 Magnesium Chloride (Mag Delay) 64 mg BID PO Last administered on 11/20/16 07: 55; Start 11/19/16 at 21:00 Oxcarbazepine (Trileptal) 150 mg BID92 PO Last administered on 11/20/16 07:57 ; Start 11/20/16 at 09:00 Active Scripts Active Reported Zyprexa Zydis (Olanzapine) 5 Mg Tab.rapdis 2.5 Mg PO PRN Q2HR PRN Paxil (Paroxetine Hcl) 10 Mg Tablet 10 Mg PO DAILY Cetirizine Hcl 10 Mg Tablet 10 Mg PO DAILY Analgesic [place] (Methyl Salicylate/Menthol) 29 Gm Oint...g. 1 [place] TP PRN QID PRN Provera (Medroxyprogesterone Acetate) 5 Mg Tablet 1 Tab PO DAILY Milk Of Magnesia (Magnesium Hydroxide) 2,400 Mg/10 Ml Oral.susp 2,400 Mg PO PRN QHS PRN Mag64 (Magnesium Chloride) 64 Mg Tablet.er 64 Mg PO DAILY Mag-Al Plus Xs Suspension (Mag Hydrox/Al Hydrox/Simeth) 30 Ml Oral.susp 15 Ml PO PRN AFTMEALHC PRN Tablet (Pnv Cmb#95/Ferrous Fumarate/Fa) 1 Each Tablet 1 Tab PO DAILYWLUN Tylenol (Acetaminophen) 325 Mg Tablet 650 Mg PO PRN Q4HRS PRN Levothyroxine Sodium 25 Mcg Tablet 25 Mcg PO DAILY06 Aricept (Donepezil Hcl) 10 Mg Tablet 10 Mg PO DAILY Lorazepam 0.5 Mg Tablet 0.5 Mg PO TID Ranitidine Hcl 150 Mg Tablet 150 Mg PO BID Seroquel (Quetiapine Fumarate) 50 Mg Tablet 50 Mg PO BID Namenda (Memantine Hcl) 10 Mg Tablet 10 Mg PO BID Vitamin D3 (Cholecalciferol (Vitamin D3)) 1,000 Unit Tablet 1,000 Unit PO DAILY Miralax (Polyethylene Glycol 3350) 119 Gm Powder 17 Gm PO PRN DAILY PRN Diagnosis: Problems: (1) Dementia with behavioral disturbance (2) Anxiety disorder (3) Impulse control disorder (4) Dementia, vascular, with delusions (5) Dementia, vascular, with depression (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
[2016-11-20] MEDS: PRENATAL MULTIVITAMIN TABLET. PO SCH (12:00)
[2016-11-20 15:55] VITALS: BP 149/76
[2016-11-21] MEDS: LEVOTHYROXINE 25 MCG TABLET. PO SCH (06:15)
[2016-11-21 06:18] VITALS: BP 159/74
[2016-11-21] MEDS: DULoxetine HCL 30 MG CAPSULE.DR PO SCH (08:59)
[2016-11-21] MEDS: MAGNESIUM CHLORIDE ER 64 MG TABLET.ER PO SCH ×2 (09:00→20:26)
[2016-11-21] MEDS: medroxyPROGESTERone 5 MG TABLET PO SCH (09:00)
[2016-11-21] MEDS: CETIRIZINE HCL 10 MG TABLET PO SCH (09:00)
[2016-11-21] MEDS: FAMOTIDINE 20 MG TABLET PO SCH ×2 (09:01→20:26)
[2016-11-21] MEDS: MEMANTINE 10 MG TABLET. PO SCH ×2 (09:02→20:26)
[2016-11-21] MEDS: QUEtiapine 50 MG TABLET. PO SCH ×3 (09:02→17:56)
[2016-11-21] MEDS: LORazepam 0.5 MG TABLET PO SCH ×3 (09:02→20:29)
[2016-11-21] MEDS: OXcarbazepine 150 MG TABLET. PO SCH ×2 (09:02→13:21)
[2016-11-21] MEDS: DONEPEZIL HCL 10 MG TABLET PO SCH (09:02)
[2016-11-21] MEDS: CHOLECALCIFEROL (VITAMIN D3) 1,000 UNIT TABLET PO SCH (09:04)
[2016-11-21] MEDS: PRENATAL MULTIVITAMIN TABLET. PO SCH (09:04)
[2016-11-21 16:43] VITALS: BP 115/64
--- NOTE | 2016-11-21 21:25 | PDOC ---
Exam West Demential Exam: West Note: Please also refer to the separate dictated note~for this date of service dictated separately.~Patient seen individually. Discussed the patient with Nursing staff reviewed the chart.~Reviewed interim history and current functioning. Reviewed vital signs,~Labs/ Radiology~and current medications noted below. Continue current treatment with the changes noted in the dictated addendum note Assessment: Vital Signs: Vital Signs Date Time Temp Pulse Resp B/P (MAP) Pulse Ox O2 Delivery O2 Flow Rate FiO2 11/21/16 16:43 98.9 74 18 115/64 (81) 98 11/20/16 06:39 Room Air I&O Intake and Output 11/21/16 07:00 Intake Total 360 ml Balance 360 ml Intake Oral 360 ml Current Medications: Meds: Current Medications Acetaminophen (Tylenol) 650 mg PRN Q4HRS PRN PO PAIN / TEMP Last administered on 11/09/16 19:25; Start 11/05/16 at 17:45 Cetirizine HCl (ZyrTEC) 10 mg DAILY PO Last administered on 11/21/16 09:00; Start 11/06/16 at 09:00 Vitamin D (Vitamin D3) 1,000 unit DAILY PO Last administered on 11/21/16 09:04 ; Start 11/06/16 at 09:00 Levothyroxine Sodium (Synthroid) 25 mcg DAILY06 PO Last administered on 06:15; Start 11/06/16 at 06:00 Al Hydroxide/Mg Hydroxide (Mylanta Plus Xs) 15 ml PRN AFTMEALHC PRN PO DYSPEPSIA; Start 11/05/16 at 17:45 Medroxyprogesterone Acetate (Provera) 5 mg DAILY PO Last administered on 09:23; Start 11/06/16 at 09:00; Stop 11/12/16 at 18:27; Status DC Multi-Ingredient Ointment (Analgesic [place]) 1 carol ann PRN QID PRN TP MUSCLE PAIN; Start 11/05/16 at 17:45 Polyethylene Glycol (miraLAX) 17 gm PRN DAILY PRN PO CONSTIPATION; Start at 09:00 Magnesium Chloride (Mag Delay) 64 mg DAILY PO Last administered on 11/19/16 07: 33; Start 11/06/16 at 09:00; Stop 11/19/16 at 15:08; Status DC Magnesium Hydroxide (Milk Of Magnesia) 2,400 mg PRN QHS PRN PO CONSTIPATION; Start 11/05/16 at 18:00 Prenat Multivit/ [place]/Iron/Folic Ac (Multivitamin ) 1 tab DAILYWLUN PO Last administered on 11/21/16 09:04; Start 11/06/16 at 12:00 Famotidine (Pepcid) 20 mg BID PO Last administered on 11/21/16 20:26; Start at 21:00 Donepezil HCl (Aricept) 10 mg DAILY PO Last administered on 11/21/16 09:02; Start 11/06/16 at 09:00 Lorazepam (Ativan) 0.5 mg TID PO Last administered on 11/16/16 13:46; Start at 21:00; Stop 11/16/16 at 16:53; Status DC Memantine (Namenda) 10 mg BID PO Last administered on 11/21/16 20:26; Start at 21:00 Olanzapine (ZyPREXA ZYDIS) 2.5 mg PRN Q2HR PRN PO ANXIETY / AGITATION Last administered on 11/19/16 20:57; Start 11/05/16 at 17:45 Paroxetine HCl (Paxil) 10 mg DAILY PO Last administered on 11/11/16 08:21; Start 11/06/16 at 09:00; Stop 11/11/16 at 10:52; Status DC Quetiapine Fumarate (SEROquel) 50 mg BID PO Last administered on 11/09/16 08: 22; Start 11/05/16 at 21:00; Stop 11/09/16 at 14:50; Status DC Nitrofurantoin Macrocrystals (Macrobid) 100 mg BID PO Last administered on 11/10 19:29; Start 11/08/16 at 21:00; Stop 11/10/16 at 21:01; Status DC Quetiapine Fumarate (SEROquel) 50 mg BID@0900,1700 PO Last administered on 11/10 08:04; Start 11/09/16 at 17:00; Stop 5/31/17 at 14:06; Status DC Quetiapine Fumarate (SEROquel) 25 mg DAILY@1400 PO Last administered on 13:05; Start 11/10/16 at 14:00; Stop 11/10/16 at 14:06; Status DC Quetiapine Fumarate (SEROquel) 50 mg TID@0900,1400,1700 PO Last administered on 11/21/16 17:56; Start 11/10/16 at 17:00 Duloxetine HCl (Cymbalta) 30 mg DAILY PO Last administered on 11/21/16 08:59; Start 11/12/16 at 09:00 Medroxyprogesterone Acetate (Provera) 7.5 mg DAILY PO Last administered on 11/21 09:00; Start 11/13/16 at 09:00 Lorazepam (Ativan) 0.5 mg BID PO Last administered on 11/21/16 20:29; Start at 21:00 Lorazepam (Ativan) 0.25 mg DAILY@1300 PO Last administered on 11/21/16 13:20; Start 11/17/16 at 13:00 Magnesium Chloride (Mag Delay) 64 mg BID PO Last administered on 11/21/16 20: 26; Start 11/19/16 at 21:00 Oxcarbazepine (Trileptal) 150 mg BID92 PO Last administered on 11/21/16 13:21 ; Start 11/20/16 at 09:00 Active Scripts Active Reported Zyprexa Zydis (Olanzapine) 5 Mg Tab.rapdis 2.5 Mg PO PRN Q2HR PRN Paxil (Paroxetine Hcl) 10 Mg Tablet 10 Mg PO DAILY Cetirizine Hcl 10 Mg Tablet 10 Mg PO DAILY Analgesic [place] (Methyl Salicylate/Menthol) 29 Gm Oint...g. 1 [place] TP PRN QID PRN Provera (Medroxyprogesterone Acetate) 5 Mg Tablet 1 Tab PO DAILY Milk Of Magnesia (Magnesium Hydroxide) 2,400 Mg/10 Ml Oral.susp 2,400 Mg PO PRN QHS PRN Mag64 (Magnesium Chloride) 64 Mg Tablet.er 64 Mg PO DAILY Mag-Al Plus Xs Suspension (Mag Hydrox/Al Hydrox/Simeth) 30 Ml Oral.susp 15 Ml PO PRN AFTMEALHC PRN Tablet (Pnv Cmb#95/Ferrous Fumarate/Fa) 1 Each Tablet 1 Tab PO DAILYWLUN Tylenol (Acetaminophen) 325 Mg Tablet 650 Mg PO PRN Q4HRS PRN Levothyroxine Sodium 25 Mcg Tablet 25 Mcg PO DAILY06 Aricept (Donepezil Hcl) 10 Mg Tablet 10 Mg PO DAILY Lorazepam 0.5 Mg Tablet 0.5 Mg PO TID Ranitidine Hcl 150 Mg Tablet 150 Mg PO BID Seroquel (Quetiapine Fumarate) 50 Mg Tablet 50 Mg PO BID Namenda (Memantine Hcl) 10 Mg Tablet 10 Mg PO BID Vitamin D3 (Cholecalciferol (Vitamin D3)) 1,000 Unit Tablet 1,000 Unit PO DAILY Miralax (Polyethylene Glycol 3350) 119 Gm Powder 17 Gm PO PRN DAILY PRN Diagnosis: Problems: (1) Dementia with behavioral disturbance (2) Medical clearance for psychiatric admission (3) Anxiety disorder (4) Impulse control disorder (5) Dementia, vascular, with delusions (6) Dementia, vascular, with depression (7) Dementia in Alzheimer's disease with delusions (8) Dementia in Alzheimer's disease with depression PRISCILA GUEVARA MD Nov 21, 2016 21:25
--- NOTE | 2016-11-21 23:43 | PN ---
DATE: 11/20/2016 PSYCHIATRIC PROGRESS NOTE This is a late entry of 11/20/2016 cover elements not covered in my initial note. SUBJECTIVE: The patient remains confused. At suppertime, he would not leave the dining room resistive, but ultimately complied. REVIEW OF SYSTEMS: No CV, , pulmonary, eye, ENT system symptoms on review. Reliability poor. MENTAL STATUS EXAM: Insight, judgment, recent and remote memory, attention, concentration, fund of knowledge poor, consistent with his diagnosis mentioned in my initial note. MAN Laina GUEVARA MD DR: WALESKA/rebecca JOB#: [id number] / [id number]
--- NOTE | 2016-11-21 23:56 | PN ---
DATE: 11/19/2016 PSYCHIATRIC PROGRESS NOTE This is a late entry of 11/19/2016, covers elements not covered in my initial note. The patient remains confused, exit seeking, to the nursing staff during showers, continues to have some mood lability. REVIEW OF SYSTEMS: No CV, , pulmonary, eye system symptoms on review. Reliability poor. MENTAL STATUS EXAM: Oriented to himself. Insight, judgment, recent and remote memory, attention, concentration, fund of knowledge poor, consistent with his diagnosis mentioned in my initial note. PLAN: Start Trileptal 150 mg 3 times a day as a mood stabilizer. Maintain the rest of the psychotropics as before. Adjust further as clinically indicated. PRISCILA GUEVARA MD DR: WALESKA/rebecca JOB#: [id number] / [id number]
[2016-11-22] MEDS: LEVOTHYROXINE 25 MCG TABLET. PO SCH (06:04)
[2016-11-22 06:29] VITALS: BP 120/59
[2016-11-22] MEDS: FAMOTIDINE 20 MG TABLET PO SCH ×2 (07:58→19:26)
[2016-11-22] MEDS: MEMANTINE 10 MG TABLET. PO SCH ×2 (07:58→19:26)
[2016-11-22] MEDS: medroxyPROGESTERone 5 MG TABLET PO SCH (07:58)
[2016-11-22] MEDS: CHOLECALCIFEROL (VITAMIN D3) 1,000 UNIT TABLET PO SCH (07:58)
[2016-11-22] MEDS: DONEPEZIL HCL 10 MG TABLET PO SCH (07:59)
[2016-11-22] MEDS: MAGNESIUM CHLORIDE ER 64 MG TABLET.ER PO SCH ×2 (07:59→19:26)
[2016-11-22] MEDS: DULoxetine HCL 30 MG CAPSULE.DR PO SCH (07:59)
[2016-11-22] MEDS: OXcarbazepine 150 MG TABLET. PO SCH ×2 (07:59→13:04)
[2016-11-22] MEDS: QUEtiapine 50 MG TABLET. PO SCH ×3 (08:00→16:32)
[2016-11-22] MEDS: CETIRIZINE HCL 10 MG TABLET PO SCH (08:00)
[2016-11-22] MEDS: LORazepam 0.5 MG TABLET PO SCH ×3 (08:03→19:27)
[2016-11-22] MEDS: PRENATAL MULTIVITAMIN TABLET. PO SCH (12:13)
[2016-11-22 16:03] VITALS: BP 129/80
--- NOTE | 2016-11-22 23:36 | PDOC ---
Exam West Demential Exam: West Note: Please also refer to the separate dictated note~for this date of service dictated separately.~Patient seen individually. Discussed the patient with Nursing staff reviewed the chart.~Reviewed interim history and current functioning. Reviewed vital signs,~Labs/ Radiology~and current medications noted below. Continue current treatment with the changes noted in the dictated addendum note Assessment: Vital Signs: Vital Signs Date Time Temp Pulse Resp B/P (MAP) Pulse Ox O2 Delivery O2 Flow Rate FiO2 11/22/16 16:03 99.4 86 18 129/80 (96) 96 Room Air I&O Intake and Output 11/22/16 07:00 Intake Total 760 ml Balance 760 ml Intake Oral 760 ml Current Medications: Meds: Current Medications Acetaminophen (Tylenol) 650 mg PRN Q4HRS PRN PO PAIN / TEMP Last administered on 11/09/16 19:25; Start 11/05/16 at 17:45 Cetirizine HCl (ZyrTEC) 10 mg DAILY PO Last administered on 11/22/16 08:00; Start 11/06/16 at 09:00 Vitamin D (Vitamin D3) 1,000 unit DAILY PO Last administered on 11/22/16 07:58 ; Start 11/06/16 at 09:00 Levothyroxine Sodium (Synthroid) 25 mcg DAILY06 PO Last administered on 06:04; Start 11/06/16 at 06:00 Al Hydroxide/Mg Hydroxide (Mylanta Plus Xs) 15 ml PRN AFTMEALHC PRN PO DYSPEPSIA; Start 11/05/16 at 17:45 Medroxyprogesterone Acetate (Provera) 5 mg DAILY PO Last administered on 09:23; Start 11/06/16 at 09:00; Stop 11/12/16 at 18:27; Status DC Multi-Ingredient Ointment (Analgesic [place]) 1 carol ann PRN QID PRN TP MUSCLE PAIN; Start 11/05/16 at 17:45 Polyethylene Glycol (miraLAX) 17 gm PRN DAILY PRN PO CONSTIPATION; Start at 09:00 Magnesium Chloride (Mag Delay) 64 mg DAILY PO Last administered on 11/19/16 07: 33; Start 11/06/16 at 09:00; Stop 11/19/16 at 15:08; Status DC Magnesium Hydroxide (Milk Of Magnesia) 2,400 mg PRN QHS PRN PO CONSTIPATION; Start 11/05/16 at 18:00 Prenat Multivit/ [place]/Iron/Folic Ac (Multivitamin ) 1 tab DAILYWLUN PO Last administered on 11/22/16 12:13; Start 11/06/16 at 12:00 Famotidine (Pepcid) 20 mg BID PO Last administered on 11/22/16 19:26; Start at 21:00 Donepezil HCl (Aricept) 10 mg DAILY PO Last administered on 11/22/16 07:59; Start 11/06/16 at 09:00 Lorazepam (Ativan) 0.5 mg TID PO Last administered on 11/16/16 13:46; Start at 21:00; Stop 11/16/16 at 16:53; Status DC Memantine (Namenda) 10 mg BID PO Last administered on 11/22/16 19:26; Start at 21:00 Olanzapine (ZyPREXA ZYDIS) 2.5 mg PRN Q2HR PRN PO ANXIETY / AGITATION Last administered on 11/22/16 16:32; Start 11/05/16 at 17:45 Paroxetine HCl (Paxil) 10 mg DAILY PO Last administered on 11/11/16 08:21; Start 11/06/16 at 09:00; Stop 11/11/16 at 10:52; Status DC Quetiapine Fumarate (SEROquel) 50 mg BID PO Last administered on 11/09/16 08: 22; Start 11/05/16 at 21:00; Stop 11/09/16 at 14:50; Status DC Nitrofurantoin Macrocrystals (Macrobid) 100 mg BID PO Last administered on 11/10 19:29; Start 11/08/16 at 21:00; Stop 11/10/16 at 21:01; Status DC Quetiapine Fumarate (SEROquel) 50 mg BID@0900,1700 PO Last administered on 11/10 08:04; Start 11/09/16 at 17:00; Stop 11/10/16 at 14:06; Status DC Quetiapine Fumarate (SEROquel) 25 mg DAILY@1400 PO Last administered on 13:05; Start 11/10/16 at 14:00; Stop 11/10/16 at 14:06; Status DC Quetiapine Fumarate (SEROquel) 50 mg TID@0900,1400,1700 PO Last administered on 11/22/16 16:32; Start 11/10/16 at 17:00 Duloxetine HCl (Cymbalta) 30 mg DAILY PO Last administered on 11/22/16 07:59; Start 11/12/16 at 09:00 Medroxyprogesterone Acetate (Provera) 7.5 mg DAILY PO Last administered on 11/22 07:58; Start 11/13/16 at 09:00 Lorazepam (Ativan) 0.5 mg BID PO Last administered on 11/22/16 19:27; Start at 21:00 Lorazepam (Ativan) 0.25 mg DAILY@1300 PO Last administered on 11/22/16 12:14; Start 11/17/16 at 13:00 Magnesium Chloride (Mag Delay) 64 mg BID PO Last administered on 11/22/16 19: 26; Start 11/19/16 at 21:00 Oxcarbazepine (Trileptal) 150 mg BID92 PO Last administered on 11/22/16 13:04 ; Start 11/20/16 at 09:00; Stop 11/22/16 at 18:16; Status DC Oxcarbazepine (Trileptal) 150 mg DAILY PO ; Start 11/23/16 at 09:00 Oxcarbazepine (Trileptal) 300 mg AFTRNOON PO ; Start 11/23/16 at 14:00 Active Scripts Active Reported Zyprexa Zydis (Olanzapine) 5 Mg Tab.rapdis 2.5 Mg PO PRN Q2HR PRN Paxil (Paroxetine Hcl) 10 Mg Tablet 10 Mg PO DAILY Cetirizine Hcl 10 Mg Tablet 10 Mg PO DAILY Analgesic [place] (Methyl Salicylate/Menthol) 29 Gm Oint...g. 1 [place] TP PRN QID PRN Provera (Medroxyprogesterone Acetate) 5 Mg Tablet 1 Tab PO DAILY Milk Of Magnesia (Magnesium Hydroxide) 2,400 Mg/10 Ml Oral.susp 2,400 Mg PO PRN QHS PRN Mag64 (Magnesium Chloride) 64 Mg Tablet.er 64 Mg PO DAILY Mag-Al Plus Xs Suspension (Mag Hydrox/Al Hydrox/Simeth) 30 Ml Oral.susp 15 Ml PO PRN AFTMEALHC PRN Tablet (Pnv Cmb#95/Ferrous Fumarate/Fa) 1 Each Tablet 1 Tab PO DAILYWLUN Tylenol (Acetaminophen) 325 Mg Tablet 650 Mg PO PRN Q4HRS PRN Levothyroxine Sodium 25 Mcg Tablet 25 Mcg PO DAILY06 Aricept (Donepezil Hcl) 10 Mg Tablet 10 Mg PO DAILY Lorazepam 0.5 Mg Tablet 0.5 Mg PO TID Ranitidine Hcl 150 Mg Tablet 150 Mg PO BID Seroquel (Quetiapine Fumarate) 50 Mg Tablet 50 Mg PO BID Namenda (Memantine Hcl) 10 Mg Tablet 10 Mg PO BID Vitamin D3 (Cholecalciferol (Vitamin D3)) 1,000 Unit Tablet 1,000 Unit PO DAILY Miralax (Polyethylene Glycol 3350) 119 Gm Powder 17 Gm PO PRN DAILY PRN Diagnosis: Problems: (1) Dementia with behavioral disturbance (2) Anxiety disorder (3) Impulse control disorder (4) Dementia, vascular, with delusions (5) Dementia, vascular, with depression (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
[2016-11-22] MEDS ORDERED: FAMO20TA5 PO (23:59)
[2016-11-23] MEDS ORDERED: DULO30CA2 PO (00:03)
[2016-11-23] MEDS ORDERED: LORA0.5T PO (00:05)
--- NOTE | 2016-11-23 01:39 | PN ---
DATE: 11/21/2016 PSYCHIATRIC PROGRESS NOTE This is a late entry of 11/21/2016, covers elements not covered in my initial note. SUBJECTIVE: The patient has been isolative in his room, takes his medications at times resistive to care, had wet briefs, went to his room, later did shower, recede Band-Aid on his skin tears. REVIEW OF SYSTEMS: No CV, , pulmonary, eye system symptoms on review. Reliability poor. MENTAL STATUS EXAM: Oriented to himself. Insight, judgment, recent and remote memory, attention, concentration, fund of knowledge poor, consistent with his diagnosis mentioned in my initial note. LABORATORY DATA: Reviewed. PLAN: Continue current psychotropics mentioned in my initial notes. Adjust as indicated. MAN Laina GUEVARA MD DR: WALESKA/rebecca JOB#: [id number] / [id number]
[2016-11-23] MEDS: LEVOTHYROXINE 25 MCG TABLET. PO SCH (05:02)
[2016-11-23 06:13] VITALS: BP 107/63
[2016-11-23] MEDS: FAMOTIDINE 20 MG TABLET PO SCH ×2 (10:46→19:27)
[2016-11-23] MEDS: medroxyPROGESTERone 5 MG TABLET PO SCH (10:47)
[2016-11-23] MEDS: DONEPEZIL HCL 10 MG TABLET PO SCH (10:47)
[2016-11-23] MEDS: CETIRIZINE HCL 10 MG TABLET PO SCH (10:47)
[2016-11-23] MEDS: MEMANTINE 10 MG TABLET. PO SCH ×2 (10:48→19:28)
[2016-11-23] MEDS: MAGNESIUM CHLORIDE ER 64 MG TABLET.ER PO SCH ×2 (10:48→19:27)
[2016-11-23] MEDS: QUEtiapine 50 MG TABLET. PO SCH ×2 (10:48→14:49)
[2016-11-23] MEDS: CHOLECALCIFEROL (VITAMIN D3) 1,000 UNIT TABLET PO SCH (10:48)
[2016-11-23] MEDS: DULoxetine HCL 30 MG CAPSULE.DR PO SCH (10:48)
[2016-11-23] MEDS: OXcarbazepine 150 MG TABLET. PO SCH (10:50)
[2016-11-23] MEDS: LORazepam 0.5 MG TABLET PO SCH ×3 (10:50→19:28)
[2016-11-23] MEDS: PRENATAL MULTIVITAMIN TABLET. PO SCH ×2 (10:52→14:49)
[2016-11-23 16:12] VITALS: BP 115/62
[2016-11-23] MEDS: QUEtiapine 25 MG TABLET. PO SCH (17:00)
--- NOTE | 2016-11-23 19:56 | PDOC ---
Exam West Demential Exam: West Note: Please also refer to the separate dictated note~for this date of service dictated separately.~Patient seen individually. Discussed the patient with Nursing staff reviewed the chart.~Reviewed interim history and current functioning. Reviewed vital signs,~Labs/ Radiology~and current medications noted below. Continue current treatment with the changes noted in the dictated addendum note Assessment: Vital Signs: Vital Signs Date Time Temp Pulse Resp B/P (MAP) Pulse Ox O2 Delivery O2 Flow Rate FiO2 11/23/16 16:12 98.0 77 18 115/62 (79) 97 11/23/16 06:13 Room Air I&O Intake and Output 11/23/16 07:00 Intake Total 720 ml Balance 720 ml Intake Oral 720 ml Current Medications: Meds: Current Medications Acetaminophen (Tylenol) 650 mg PRN Q4HRS PRN PO PAIN / TEMP Last administered on 11/09/16 19:25; Start 11/05/16 at 17:45 Cetirizine HCl (ZyrTEC) 10 mg DAILY PO Last administered on 11/23/16 10:47; Start 11/06/16 at 09:00 Vitamin D (Vitamin D3) 1,000 unit DAILY PO Last administered on 11/23/16 10:48 ; Start 11/06/16 at 09:00 Levothyroxine Sodium (Synthroid) 25 mcg DAILY06 PO Last administered on 05:02; Start 11/06/16 at 06:00 Al Hydroxide/Mg Hydroxide (Mylanta Plus Xs) 15 ml PRN AFTMEALHC PRN PO DYSPEPSIA; Start 11/05/16 at 17:45 Medroxyprogesterone Acetate (Provera) 5 mg DAILY PO Last administered on 09:23; Start 11/06/16 at 09:00; Stop 11/12/16 at 18:27; Status DC Multi-Ingredient Ointment (Analgesic [place]) 1 carol ann PRN QID PRN TP MUSCLE PAIN; Start 11/05/16 at 17:45 Polyethylene Glycol (miraLAX) 17 gm PRN DAILY PRN PO CONSTIPATION; Start at 09:00 Magnesium Chloride (Mag Delay) 64 mg DAILY PO Last administered on 11/19/16 07: 33; Start 11/06/16 at 09:00; Stop 11/19/16 at 15:08; Status DC Magnesium Hydroxide (Milk Of Magnesia) 2,400 mg PRN QHS PRN PO CONSTIPATION; Start 11/05/16 at 18:00 Prenat Multivit/ Engineer [place]/Iron/Folic Ac (Multivitamin ) 1 tab DAILYWLUN PO Last administered on 11/23/16 14:49; Start 11/06/16 at 12:00 Famotidine (Pepcid) 20 mg BID PO Last administered on 11/23/16 19:27; Start at 21:00 Donepezil HCl (Aricept) 10 mg DAILY PO Last administered on 11/23/16 10:47; Start 11/06/16 at 09:00 Lorazepam (Ativan) 0.5 mg TID PO Last administered on 11/16/16 13:46; Start at 21:00; Stop 11/16/16 at 16:53; Status DC Memantine (Namenda) 10 mg BID PO Last administered on 11/23/16 19:28; Start at 21:00 Olanzapine (ZyPREXA ZYDIS) 2.5 mg PRN Q2HR PRN PO ANXIETY / AGITATION Last administered on 11/22/16 16:32; Start 11/05/16 at 17:45 Paroxetine HCl (Paxil) 10 mg DAILY PO Last administered on 11/11/16 08:21; Start 11/06/16 at 09:00; Stop 11/11/16 at 10:52; Status DC Quetiapine Fumarate (SEROquel) 50 mg BID PO Last administered on 11/09/16 08: 22; Start 11/05/16 at 21:00; Stop 11/09/16 at 14:50; Status DC Nitrofurantoin Macrocrystals (Macrobid) 100 mg BID PO Last administered on 11/10 19:29; Start 11/08/16 at 21:00; Stop 11/10/16 at 21:01; Status DC Quetiapine Fumarate (SEROquel) 50 mg BID@0900,1700 PO Last administered on 11/10 08:04; Start 11/09/16 at 17:00; Stop 11/10/16 at 14:06; Status DC Quetiapine Fumarate (SEROquel) 25 mg DAILY@1400 PO Last administered on 13:05; Start 11/10/16 at 14:00; Stop 11/10/16 at 14:06; Status DC Quetiapine Fumarate (SEROquel) 50 mg TID@0900,1400,1700 PO Last administered on 11/23/16 14:49; Start 11/10/16 at 17:00; Stop 11/23/16 at 15:11; Status DC Duloxetine HCl (Cymbalta) 30 mg DAILY PO Last administered on 11/23/16 10:48; Start 11/12/16 at 09:00 Medroxyprogesterone Acetate (Provera) 7.5 mg DAILY PO Last administered on 11/23 10:47; Start 11/13/16 at 09:00 Lorazepam (Ativan) 0.5 mg BID PO Last administered on 11/23/16 19:28; Start at 21:00 Lorazepam (Ativan) 0.25 mg DAILY@1300 PO Last administered on 11/23/16 14:48; Start 11/17/16 at 13:00 Magnesium Chloride (Mag Delay) 64 mg BID PO Last administered on 11/23/16 19: 27; Start 11/19/16 at 21:00 Oxcarbazepine (Trileptal) 150 mg BID92 PO Last administered on 11/22/16 13:04 ; Start 11/20/16 at 09:00; Stop 11/22/16 at 18:16; Status DC Oxcarbazepine (Trileptal) 150 mg DAILY PO Last administered on 11/23/16 10:50 ; Start 11/23/16 at 09:00 Oxcarbazepine (Trileptal) 300 mg AFTRNOON PO Last administered on 11/23/16 14: 50; Start 11/23/16 at 14:00 Quetiapine Fumarate (SEROquel) 50 mg DAILY@1400 PO ; Start 11/24/16 at 14:00 Quetiapine Fumarate (SEROquel) 75 mg BID@0900,1700 PO Last administered on 11/23 17:00; Start 11/23/16 at 17:00 Active Scripts Active Reported Lorazepam 0.5 Mg Tablet 0.25 Mg PO DAILY Cymbalta (Duloxetine Hcl) 30 Mg Capsule.dr 30 Mg PO DAILY Famotidine 20 Mg Tablet 20 Mg PO BID Zyprexa Zydis (Olanzapine) 5 Mg Tab.rapdis 2.5 Mg PO PRN Q2HR PRN Paxil (Paroxetine Hcl) 10 Mg Tablet 10 Mg PO DAILY Cetirizine Hcl 10 Mg Tablet 10 Mg PO DAILY Analgesic [place] (Methyl Salicylate/Menthol) 29 Gm Oint...g. 1 [place] TP PRN QID PRN Provera (Medroxyprogesterone Acetate) 5 Mg Tablet 1 Tab PO DAILY Milk Of Magnesia (Magnesium Hydroxide) 2,400 Mg/10 Ml Oral.susp 2,400 Mg PO PRN QHS PRN Mag64 (Magnesium Chloride) 64 Mg Tablet.er 64 Mg PO DAILY Mag-Al Plus Xs Suspension (Mag Hydrox/Al Hydrox/Simeth) 30 Ml Oral.susp 15 Ml PO PRN AFTMEALHC PRN Tablet (Pnv Cmb#95/Ferrous Fumarate/Fa) 1 Each Tablet 1 Tab PO DAILYWLUN Tylenol (Acetaminophen) 325 Mg Tablet 650 Mg PO PRN Q4HRS PRN Levothyroxine Sodium 25 Mcg Tablet 25 Mcg PO DAILY06 Aricept (Donepezil Hcl) 10 Mg Tablet 10 Mg PO DAILY Lorazepam 0.5 Mg Tablet 0.5 Mg PO TID Ranitidine Hcl 150 Mg Tablet 150 Mg PO BID Seroquel (Quetiapine Fumarate) 50 Mg Tablet 50 Mg PO BID Namenda (Memantine Hcl) 10 Mg Tablet 10 Mg PO BID Vitamin D3 (Cholecalciferol (Vitamin D3)) 1,000 Unit Tablet 1,000 Unit PO DAILY Miralax (Polyethylene Glycol 3350) 119 Gm Powder 17 Gm PO PRN DAILY PRN Diagnosis: Problems: (1) Dementia with behavioral disturbance (2) Medical clearance for psychiatric admission (3) Anxiety disorder (4) Impulse control disorder (5) Dementia, vascular, with delusions (6) Dementia, vascular, with depression (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
--- NOTE | 2016-11-24 00:07 | PN ---
DATE: 11/22/2016 PSYCHIATRIC PROGRESS NOTE This is a late entry for 11/22/2016, covers elements not covered in my initial note. SUBJECTIVE: The patient has been exit seeking, anxious, somewhat labile in his mood. REVIEW OF SYSTEMS: No CV, , pulmonary, eye, ENT system symptoms on review. Reliability poor. MENTAL STATUS EXAM: Oriented to himself. Insight, judgment, recent and remote memory, attention, concentration, fund of knowledge poor, consistent with his diagnosis mentioned in my initial note. PLAN: Increase Trileptal from 150 mg twice a day to 150 mg in the morning and 300 mg at 2 p.m. Continue Aricept 10 mg a day, Ativan 0.5 mg b.i.d. plus 0.25 mg at 1300 hour, Namenda 10 mg b.i.d., Seroquel is 50 mg three times a day, we will increase it to 75 mg in the morning and evening, and continue 50 mg in the afternoon. Maintain the rest of psychotropics unchanged, Provera 7.5 mg daily, Cymbalta 30 mg a day. MAN Laina GUEVARA MD DR: WALESKA/rebecca JOB#: [id number] / [id number]
[2016-11-24 05:30] VITALS: BP 106/60
[2016-11-24] MEDS: LEVOTHYROXINE 25 MCG TABLET. PO SCH (05:46)
[2016-11-24] MEDS: MAGNESIUM CHLORIDE ER 64 MG TABLET.ER PO SCH ×2 (09:16→19:53)
[2016-11-24] MEDS: CHOLECALCIFEROL (VITAMIN D3) 1,000 UNIT TABLET PO SCH (09:17)
[2016-11-24] MEDS: FAMOTIDINE 20 MG TABLET PO SCH ×2 (09:17→19:53)
[2016-11-24] MEDS: OXcarbazepine 150 MG TABLET. PO SCH (09:17)
[2016-11-24] MEDS: CETIRIZINE HCL 10 MG TABLET PO SCH (09:17)
[2016-11-24] MEDS: DONEPEZIL HCL 10 MG TABLET PO SCH (09:19)
[2016-11-24] MEDS: QUEtiapine 25 MG TABLET. PO SCH ×2 (09:19→17:46)
[2016-11-24] MEDS: MEMANTINE 10 MG TABLET. PO SCH ×2 (09:19→19:53)
[2016-11-24] MEDS: medroxyPROGESTERone 5 MG TABLET PO SCH (09:21)
[2016-11-24] MEDS: LORazepam 0.5 MG TABLET PO SCH ×3 (09:26→19:55)
[2016-11-24] MEDS: DULoxetine HCL 30 MG CAPSULE.DR PO SCH (09:26)
[2016-11-24] MEDS: QUEtiapine 50 MG TABLET. PO SCH (14:05)
[2016-11-24 16:15] VITALS: BP 126/68
--- NOTE | 2016-11-24 20:31 | PDOC ---
Exam West Demential Exam: West Note: Please also refer to the separate dictated note~for this date of service dictated separately.~Patient seen individually. Discussed the patient with Nursing staff reviewed the chart.~Reviewed interim history and current functioning. Reviewed vital signs,~Labs/ Radiology~and current medications noted below. Continue current treatment with the changes noted in the dictated addendum note Assessment: Vital Signs: Vital Signs Date Time Temp Pulse Resp B/P (MAP) Pulse Ox O2 Delivery O2 Flow Rate FiO2 11/24/16 16:15 98.7 88 16 126/68 (87) 95 11/23/16 06:13 Room Air I&O Intake and Output 11/24/16 07:00 Intake Total 1200 ml Balance 1200 ml Intake Oral 1200 ml Current Medications: Meds: Current Medications Acetaminophen (Tylenol) 650 mg PRN Q4HRS PRN PO PAIN / TEMP Last administered on 11/09/16 19:25; Start 11/05/16 at 17:45 Cetirizine HCl (ZyrTEC) 10 mg DAILY PO Last administered on 11/24/16 09:17; Start 11/06/16 at 09:00 Vitamin D (Vitamin D3) 1,000 unit DAILY PO Last administered on 11/24/16 09:17 ; Start 11/06/16 at 09:00 Levothyroxine Sodium (Synthroid) 25 mcg DAILY06 PO Last administered on 05:46; Start 11/06/16 at 06:00 Al Hydroxide/Mg Hydroxide (Mylanta Plus Xs) 15 ml PRN AFTMEALHC PRN PO DYSPEPSIA; Start 11/05/16 at 17:45 Medroxyprogesterone Acetate (Provera) 5 mg DAILY PO Last administered on 09:23; Start 11/06/16 at 09:00; Stop 11/12/16 at 18:27; Status DC Multi-Ingredient Ointment (Analgesic [place]) 1 carol ann PRN QID PRN TP MUSCLE PAIN; Start 11/05/16 at 17:45 Polyethylene Glycol (miraLAX) 17 gm PRN DAILY PRN PO CONSTIPATION; Start at 09:00 Magnesium Chloride (Mag Delay) 64 mg DAILY PO Last administered on 11/19/16 07: 33; Start 11/06/16 at 09:00; Stop 11/19/16 at 15:08; Status DC Magnesium Hydroxide (Milk Of Magnesia) 2,400 mg PRN QHS PRN PO CONSTIPATION; Start 11/05/16 at 18:00 Prenat Multivit/ [place]/Iron/Folic Ac (Multivitamin ) 1 tab DAILYWLUN PO Last administered on 11/23/16 14:49; Start 11/06/16 at 12:00 Famotidine (Pepcid) 20 mg BID PO Last administered on 11/24/16 19:53; Start at 21:00 Donepezil HCl (Aricept) 10 mg DAILY PO Last administered on 11/24/16 09:19; Start 11/06/16 at 09:00 Lorazepam (Ativan) 0.5 mg TID PO Last administered on 11/16/16 13:46; Start at 21:00; Stop 11/16/16 at 16:53; Status DC Memantine (Namenda) 10 mg BID PO Last administered on 11/24/16 19:53; Start at 21:00 Olanzapine (ZyPREXA ZYDIS) 2.5 mg PRN Q2HR PRN PO ANXIETY / AGITATION Last administered on 11/22/16 16:32; Start 11/05/16 at 17:45 Paroxetine HCl (Paxil) 10 mg DAILY PO Last administered on 11/11/16 08:21; Start 11/06/16 at 09:00; Stop 11/11/16 at 10:52; Status DC Quetiapine Fumarate (SEROquel) 50 mg BID PO Last administered on 11/09/16 08: 22; Start 11/05/16 at 21:00; Stop 11/09/16 at 14:50; Status DC Nitrofurantoin Macrocrystals (Macrobid) 100 mg BID PO Last administered on 11/10 19:29; Start 11/08/16 at 21:00; Stop 11/10/16 at 21:01; Status DC Quetiapine Fumarate (SEROquel) 50 mg BID@0900,1700 PO Last administered on 11/10 08:04; Start 11/09/16 at 17:00; Stop 11/10/16 at 14:06; Status DC Quetiapine Fumarate (SEROquel) 25 mg DAILY@1400 PO Last administered on 13:05; Start 11/10/16 at 14:00; Stop 11/10/16 at 14:06; Status DC Quetiapine Fumarate (SEROquel) 50 mg TID@0900,1400,1700 PO Last administered on 11/23/16 14:49; Start 11/10/16 at 17:00; Stop 11/23/16 at 15:11; Status DC Duloxetine HCl (Cymbalta) 30 mg DAILY PO Last administered on 11/24/16 09:26; Start 11/12/16 at 09:00 Medroxyprogesterone Acetate (Provera) 7.5 mg DAILY PO Last administered on 11/24 09:21; Start 11/13/16 at 09:00; Stop 11/24/16 at 18:34; Status DC Lorazepam (Ativan) 0.5 mg BID PO Last administered on 11/24/16 19:55; Start at 21:00 Lorazepam (Ativan) 0.25 mg DAILY@1300 PO Last administered on 11/24/16 14:05; Start 11/17/16 at 13:00 Magnesium Chloride (Mag Delay) 64 mg BID PO Last administered on 11/24/16 19: 53; Start 11/19/16 at 21:00 Oxcarbazepine (Trileptal) 150 mg BID92 PO Last administered on 11/22/16 13:04 ; Start 11/20/16 at 09:00; Stop 11/22/16 at 18:16; Status DC Oxcarbazepine (Trileptal) 150 mg DAILY PO Last administered on 11/24/16 09:17 ; Start 11/23/16 at 09:00 Oxcarbazepine (Trileptal) 300 mg AFTRNOON PO Last administered on 11/24/16 14: 04; Start 11/23/16 at 14:00 Quetiapine Fumarate (SEROquel) 50 mg DAILY@1400 PO Last administered on 14:05; Start 11/24/16 at 14:00 Quetiapine Fumarate (SEROquel) 75 mg BID@0900,1700 PO Last administered on 11/24t 17:46; Start 11/23/16 at 17:00 Medroxyprogesterone Acetate (Provera) 10 mg DAILY PO ; Start 11/25/16 at 09:00 Active Scripts Active Reported Lorazepam 0.5 Mg Tablet 0.25 Mg PO DAILY Cymbalta (Duloxetine Hcl) 30 Mg Capsule.dr 30 Mg PO DAILY Famotidine 20 Mg Tablet 20 Mg PO BID Zyprexa Zydis (Olanzapine) 5 Mg Tab.rapdis 2.5 Mg PO PRN Q2HR PRN Paxil (Paroxetine Hcl) 10 Mg Tablet 10 Mg PO DAILY Cetirizine Hcl 10 Mg Tablet 10 Mg PO DAILY Analgesic [place] (Methyl Salicylate/Menthol) 29 Gm Oint...g. 1 [place] TP PRN QID PRN Provera (Medroxyprogesterone Acetate) 5 Mg Tablet 1 Tab PO DAILY Milk Of Magnesia (Magnesium Hydroxide) 2,400 Mg/10 Ml Oral.susp 2,400 Mg PO PRN QHS PRN Mag64 (Magnesium Chloride) 64 Mg Tablet.er 64 Mg PO DAILY Mag-Al Plus Xs Suspension (Mag Hydrox/Al Hydrox/Simeth) 30 Ml Oral.susp 15 Ml PO PRN AFTMEALHC PRN Tablet (Pnv Cmb#95/Ferrous Fumarate/Fa) 1 Each Tablet 1 Tab PO DAILYWLUN Tylenol (Acetaminophen) 325 Mg Tablet 650 Mg PO PRN Q4HRS PRN Levothyroxine Sodium 25 Mcg Tablet 25 Mcg PO DAILY06 Aricept (Donepezil Hcl) 10 Mg Tablet 10 Mg PO DAILY Lorazepam 0.5 Mg Tablet 0.5 Mg PO TID Ranitidine Hcl 150 Mg Tablet 150 Mg PO BID Seroquel (Quetiapine Fumarate) 50 Mg Tablet 50 Mg PO BID Namenda (Memantine Hcl) 10 Mg Tablet 10 Mg PO BID Vitamin D3 (Cholecalciferol (Vitamin D3)) 1,000 Unit Tablet 1,000 Unit PO DAILY Miralax (Polyethylene Glycol 3350) 119 Gm Powder 17 Gm PO PRN DAILY PRN Diagnosis: Problems: (1) Dementia with behavioral disturbance (2) Anxiety disorder (3) Impulse control disorder (4) Dementia, vascular, with delusions (5) Dementia, vascular, with depression (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
--- NOTE | 2016-11-24 21:21 | PN ---
DATE: 11/23/2016 PSYCHIATRIC PROGRESS NOTE This is late entry of 11/23/2016, covers elements not covered in my initial note. SUBJECTIVE: The patient's discharge was postponed since he was being agitated, aggressive and Seroquel was adjusted upward to help compensate for this. He has been somewhat tired during the day on 11/23/2016. REVIEW OF SYSTEMS: No CV, , pulmonary, eye system symptoms on review. Reliability poor. MENTAL STATUS EXAMINATION: Oriented to himself. Insight, judgment, recent and remote memory, attention, concentration, fund of knowledge poor, consistent with his diagnosis. Gait is slightly unsteady, could be due to the increased Seroquel and we will monitor this. LABORATORY DATA: Reviewed. IMPRESSION: Unchanged. PLAN: Continue psychotropics mentioned in my initial note. MAN Laina GUEVARA MD DR: WALESKA/rebecca JOB#: [id number] / [id number]
--- NOTE | 2016-11-25 01:35 | PN ---
DATE: 11/24/2016 This note covers elements not covered in my initial note. SUBJECTIVE: The patient has been sexually inappropriate telling the nursing staff he wanted sex and wanted a naked woman. Staff have addressed this with him and he smiles about this, has not been aggressive about it however. REVIEW OF SYSTEMS: No CV, , pulmonary, eye system symptoms on review. MENTAL STATUS EXAM: Oriented to himself. Insight, judgment, recent and remote memory, attention, concentration, fund of knowledge poor, consistent with his diagnosis mentioned in my initial note. PLAN: Increase Provera to 10 mg a day consequent to inappropriate sexual behaviors. Maintain rest unchanged. MAN Laina GUEVARA MD DR: WALESKA/rebecca JOB#: [id number] / [id number]
[2016-11-25] MEDS ORDERED: MAGN400O7 PO (05:04)
[2016-11-25] MEDS ORDERED: QUET25TA5 PO (05:07)
[2016-11-25] MEDS ORDERED: OXCA150T3 PO (05:09)
[2016-11-25] MEDS ORDERED: OXCA300T3 PO (05:10)
[2016-11-25] MEDS ORDERED: MEDR10TA PO (05:11)
[2016-11-25] MEDS: LEVOTHYROXINE 25 MCG TABLET. PO SCH (05:16)
[2016-11-25 06:04] VITALS: BP 128/66
[2016-11-25] MEDS: QUEtiapine 25 MG TABLET. PO SCH ×2 (09:35→16:25)
[2016-11-25] MEDS: LORazepam 0.5 MG TABLET PO SCH ×3 (09:35→19:17)
[2016-11-25] MEDS: DULoxetine HCL 30 MG CAPSULE.DR PO SCH (09:35)
[2016-11-25] MEDS: MAGNESIUM CHLORIDE ER 64 MG TABLET.ER PO SCH ×2 (09:35→19:16)
[2016-11-25] MEDS: OXcarbazepine 150 MG TABLET. PO SCH (09:36)
[2016-11-25] MEDS: CETIRIZINE HCL 10 MG TABLET PO SCH (09:36)
[2016-11-25] MEDS: DONEPEZIL HCL 10 MG TABLET PO SCH (09:36)
[2016-11-25] MEDS: FAMOTIDINE 20 MG TABLET PO SCH ×2 (09:36→19:16)
[2016-11-25] MEDS: MEMANTINE 10 MG TABLET. PO SCH ×2 (09:36→19:16)
[2016-11-25] MEDS: CHOLECALCIFEROL (VITAMIN D3) 1,000 UNIT TABLET PO SCH (09:36)
[2016-11-25] MEDS: medroxyPROGESTERone 5 MG TABLET PO SCH (09:38)
[2016-11-25] MEDS: PRENATAL MULTIVITAMIN TABLET. PO SCH (09:38)
[2016-11-25 13:38] LABS: BASO % 1 % (0-3); EOS # 0.3 x10^3/uL (0.0-0.7); EOS % 8 % (0-3); HEMATOCRIT 34.4 % (39.0-53.0); HEMOGLOBIN 11.9 g/dL (13.0-17.5); LYMPH # 1.1 x10^3/uL (1.0-4.8); LYMPH % 27 % (24-48); MEAN CORPUSCULAR HEMOGLOBIN 33 pg (25-35); MEAN CORPUSCULAR HGB CONC 35 g/dL (31-37); MEAN CORPUSCULAR VOLUME 94 fL (79-100); MONO # 0.4 x10^3/uL (0.0-1.1); MONO % 10 % (0-9); NEUT # 2.3 x10^3uL (1.8-7.7); NEUT % 54 % (31-73); PLATELET COUNT 105 x10^3/uL (140-400); RED BLOOD COUNT 3.65 x10^6/uL (4.30-5.70); WHITE BLOOD COUNT 4.2 x10^3/uL (4.0-11.0)
[2016-11-25 13:48] LABS: ALBUMIN 3.5 g/dL (3.4-5.0); ALBUMIN/GLOBULIN RATIO 0.9 (1.0-1.7); CREATININE 1.4 mg/dL (0.7-1.3); GFR 48.9; POTASSIUM 4.2 mmol/L (3.5-5.1); TOTAL BILIRUBIN 0.3 mg/dL (0.2-1.0); TOTAL PROTEIN 7.3 g/dL (6.4-8.2)
[2016-11-25] MEDS: QUEtiapine 50 MG TABLET. PO SCH (13:49)
[2016-11-25 16:07] VITALS: BP 128/71
--- NOTE | 2016-11-25 20:13 | PDOC ---
Exam West Demential Exam: West Note: Please also refer to the separate dictated note~for this date of service dictated separately.~Patient seen individually. Discussed the patient with Nursing staff reviewed the chart.~Reviewed interim history and current functioning. Reviewed vital signs,~Labs/ Radiology~and current medications noted below. Continue current treatment with the changes noted in the dictated addendum note Assessment: Vital Signs: Vital Signs Date Time Temp Pulse Resp B/P (MAP) Pulse Ox O2 Delivery O2 Flow Rate FiO2 11/25/16 16:07 98.8 84 18 128/71 (90) 96 Room Air I&O Intake and Output 11/25/16 07:00 Intake Total 980 ml Balance 980 ml Intake Oral 980 ml Labs: Laboratory Tests Test 11/25/16 13:15 White Blood Count 4.2 x10^3/uL (4.0-11.0) Red Blood Count 3.65 x10^6/uL (4.30-5.70) L Hemoglobin 11.9 g/dL (13.0-17.5) L Hematocrit 34.4 % (39.0-53.0) L Mean Corpuscular Volume 94 fL (79-100) Mean Corpuscular Hemoglobin 33 pg (25-35) Mean Corpuscular Hemoglobin Concent 35 g/dL (31-37) Red Cell Distribution Width 14.0 % (11.5-14.5) Platelet Count 105 x10^3/uL (140-400) L Neutrophils (%) (Auto) 54 % (31-73) Lymphocytes (%) (Auto) 27 % (24-48) Monocytes (%) (Auto) 10 % (0-9) H Eosinophils (%) (Auto) 8 % (0-3) H Basophils (%) (Auto) 1 % (0-3) Neutrophils # (Auto) 2.3 x10^3uL (1.8-7.7) Lymphocytes # (Auto) 1.1 x10^3/uL (1.0-4.8) Monocytes # (Auto) 0.4 x10^3/uL (0.0-1.1) Eosinophils # (Auto) 0.3 x10^3/uL (0.0-0.7) Basophils # (Auto) 0.0 x10^3/uL (0.0-0.2) Sodium Level 139 mmol/L (136-145) Potassium Level 4.2 mmol/L (3.5-5.1) Chloride Level 104 mmol/L (98-107) Carbon Dioxide Level 24 mmol/L (21-32) Anion Gap 11 (6-14) Blood Urea Nitrogen 24 mg/dL (8-26) Creatinine 1.4 mg/dL (0.7-1.3) H Estimated GFR (Cockcroft-Gault) 48.9 BUN/Creatinine Ratio 17 (6-20) Glucose Level 115 mg/dL (70-99) H Calcium Level 9.0 mg/dL (8.5-10.1) Magnesium Level 1.7 mg/dL (1.8-2.4) L Total Bilirubin 0.3 mg/dL (0.2-1.0) Aspartate Amino Transferase (AST) 25 U/L (15-37) Alanine Aminotransferase (ALT) 29 U/L (16-63) Alkaline Phosphatase 114 U/L (46-116) Total Protein 7.3 g/dL (6.4-8.2) Albumin 3.5 g/dL (3.4-5.0) Albumin/Globulin Ratio 0.9 (1.0-1.7) L Current Medications: Meds: Current Medications Acetaminophen (Tylenol) 650 mg PRN Q4HRS PRN PO PAIN / TEMP Last administered on 11/09/16 19:25; Start 11/05/16 at 17:45 Cetirizine HCl (ZyrTEC) 10 mg DAILY PO Last administered on 11/25/16 09:36; Start 11/06/16 at 09:00 Vitamin D (Vitamin D3) 1,000 unit DAILY PO Last administered on 11/25/16 09:36 ; Start 11/06/16 at 09:00 Levothyroxine Sodium (Synthroid) 25 mcg DAILY06 PO Last administered on 05:16; Start 11/06/16 at 06:00 Al Hydroxide/Mg Hydroxide (Mylanta Plus Xs) 15 ml PRN AFTMEALHC PRN PO DYSPEPSIA; Start 11/05/16 at 17:45 Medroxyprogesterone Acetate (Provera) 5 mg DAILY PO Last administered on 09:23; Start 11/06/16 at 09:00; Stop 11/12/16 at 18:27; Status DC Multi-Ingredient Ointment (Analgesic [place]) 1 carol ann PRN QID PRN TP MUSCLE PAIN; Start 11/05/16 at 17:45 Polyethylene Glycol (miraLAX) 17 gm PRN DAILY PRN PO CONSTIPATION; Start at 09:00 Magnesium Chloride (Mag Delay) 64 mg DAILY PO Last administered on 11/19/16 07: 33; Start 11/06/16 at 09:00; Stop 11/19/16 at 15:08; Status DC Magnesium Hydroxide (Milk Of Magnesia) 2,400 mg PRN QHS PRN PO CONSTIPATION; Start 11/05/16 at 18:00 Prenat Multivit/ [place]/Iron/Folic Ac (Multivitamin ) 1 tab DAILYWLUN PO Last administered on 11/25/16 09:38; Start 11/06/16 at 12:00 Famotidine (Pepcid) 20 mg BID PO Last administered on 11/25/16 19:16; Start at 21:00 Donepezil HCl (Aricept) 10 mg DAILY PO Last administered on 11/25/16 09:36; Start 11/06/16 at 09:00 Lorazepam (Ativan) 0.5 mg TID PO Last administered on 11/16/16 13:46; Start at 21:00; Stop 11/16/16 at 16:53; Status DC Memantine (Namenda) 10 mg BID PO Last administered on 11/25/16 19:16; Start at 21:00 Olanzapine (ZyPREXA ZYDIS) 2.5 mg PRN Q2HR PRN PO ANXIETY / AGITATION Last administered on 11/22/16 16:32; Start 11/05/16 at 17:45 Paroxetine HCl (Paxil) 10 mg DAILY PO Last administered on 11/11/16 08:21; Start 11/06/16 at 09:00; Stop 11/11/16 at 10:52; Status DC Quetiapine Fumarate (SEROquel) 50 mg BID PO Last administered on 11/09/16 08: 22; Start 11/05/16 at 21:00; Stop 11/09/16 at 14:50; Status DC Nitrofurantoin Macrocrystals (Macrobid) 100 mg BID PO Last administered on 11/10 19:29; Start 11/08/16 at 21:00; Stop 11/10/16 at 21:01; Status DC Quetiapine Fumarate (SEROquel) 50 mg BID@0900,1700 PO Last administered on 11/10 08:04; Start 11/09/16 at 17:00; Stop 11/10/16 at 14:06; Status DC Quetiapine Fumarate (SEROquel) 25 mg DAILY@1400 PO Last administered on 13:05; Start 11/10/16 at 14:00; Stop 11/10/16 at 14:06; Status DC Quetiapine Fumarate (SEROquel) 50 mg TID@0900,1400,1700 PO Last administered on 11/23/16 14:49; Start 11/10/16 at 17:00; Stop 11/23/16 at 15:11; Status DC Duloxetine HCl (Cymbalta) 30 mg DAILY PO Last administered on 11/25/16 09:35; Start 11/12/16 at 09:00 Medroxyprogesterone Acetate (Provera) 7.5 mg DAILY PO Last administered on 11/24 09:21; Start 11/13/16 at 09:00; Stop 11/24/16 at 18:34; Status DC Lorazepam (Ativan) 0.5 mg BID PO Last administered on 11/25/16 19:17; Start at 21:00 Lorazepam (Ativan) 0.25 mg DAILY@1300 PO Last administered on 11/25/16 13:49; Start 11/17/16 at 13:00 Magnesium Chloride (Mag Delay) 64 mg BID PO Last administered on 11/25/16 19: 16; Start 11/19/16 at 21:00 Oxcarbazepine (Trileptal) 150 mg BID92 PO Last administered on 11/22/16 13:04 ; Start 11/20/16 at 09:00; Stop 11/22/16 at 18:16; Status DC Oxcarbazepine (Trileptal) 150 mg DAILY PO Last administered on 11/25/16 09:36 ; Start 11/23/16 at 09:00 Oxcarbazepine (Trileptal) 300 mg AFTRNOON PO Last administered on 11/25/16 13: 49; Start 11/23/16 at 14:00 Quetiapine Fumarate (SEROquel) 50 mg DAILY@1400 PO Last administered on 13:49; Start 11/24/16 at 14:00; Stop 11/25/16 at 18:48; Status DC Quetiapine Fumarate (SEROquel) 75 mg BID@0900,1700 PO Last administered on 11/25 16:25; Start 11/23/16 at 17:00; Stop 11/25/16 at 18:49; Status DC Medroxyprogesterone Acetate (Provera) 10 mg DAILY PO Last administered on 09:38; Start 11/25/16 at 09:00 Cyanocobalamin (Vitamin B-12) 1,000 mcg DAILY PO ; Start 11/26/16 at 09:00 Quetiapine Fumarate (SEROquel) 75 mg BID@1400,1700 PO ; Start 11/26/16 at 14:00 Quetiapine Fumarate (SEROquel) 100 mg DAILY PO ; Start 11/26/16 at 09:00 Active Scripts Active Reported Provera (Medroxyprogesterone Acetate) 10 Mg Tablet 10 Mg PO DAILY Trileptal (Oxcarbazepine) 300 Mg Tablet 300 Mg PO AFTRNOON Trileptal (Oxcarbazepine) 150 Mg Tablet 150 Mg PO DAILY Seroquel (Quetiapine Fumarate) 25 Mg Tablet 75 Mg PO BID Milk Of Magnesia (Magnesium Hydroxide) 400 Mg/5 Ml Oral.susp 2,400 Mg PO PRN QHS PRN Lorazepam 0.5 Mg Tablet 0.25 Mg PO DAILY Cymbalta (Duloxetine Hcl) 30 Mg Capsule.dr 30 Mg PO DAILY Zyprexa Zydis (Olanzapine) 5 Mg Tab.rapdis 2.5 Mg PO PRN Q2HR PRN Paxil (Paroxetine Hcl) 10 Mg Tablet 10 Mg PO DAILY Cetirizine Hcl 10 Mg Tablet 10 Mg PO DAILY Analgesic [place] (Methyl Salicylate/Menthol) 29 Gm Oint...g. 1 [place] TP PRN QID PRN Provera (Medroxyprogesterone Acetate) 5 Mg Tablet 1 Tab PO DAILY Mag64 (Magnesium Chloride) 64 Mg Tablet.er 64 Mg PO DAILY Mag-Al Plus Xs Suspension (Mag Hydrox/Al Hydrox/Simeth) 30 Ml Oral.susp 15 Ml PO PRN AFTMEALHC PRN Tablet (Pnv Cmb#95/Ferrous Fumarate/Fa) 1 Each Tablet 1 Tab PO DAILYWLUN Tylenol (Acetaminophen) 325 Mg Tablet 650 Mg PO PRN Q4HRS PRN Levothyroxine Sodium 25 Mcg Tablet 25 Mcg PO DAILY06 Aricept (Donepezil Hcl) 10 Mg Tablet 10 Mg PO DAILY Lorazepam 0.5 Mg Tablet 0.5 Mg PO TID Ranitidine Hcl 150 Mg Tablet 150 Mg PO BID Seroquel (Quetiapine Fumarate) 50 Mg Tablet 50 Mg PO BID Namenda (Memantine Hcl) 10 Mg Tablet 10 Mg PO BID Vitamin D3 (Cholecalciferol (Vitamin D3)) 1,000 Unit Tablet 1,000 Unit PO DAILY Miralax (Polyethylene Glycol 3350) 119 Gm Powder 17 Gm PO PRN DAILY PRN Diagnosis: Problems: (1) Dementia with behavioral disturbance (2) Anxiety disorder (3) Impulse control disorder (4) Dementia, vascular, with delusions (5) Dementia, vascular, with depression (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
[2016-11-26] MEDS ORDERED: QUET100T4 PO (03:17)
[2016-11-26] MEDS: LEVOTHYROXINE 25 MCG TABLET. PO SCH (05:58)
[2016-11-26 06:31] VITALS: BP 152/64
[2016-11-26] MEDS: LORazepam 0.5 MG TABLET PO SCH ×2 (08:08→12:26)
[2016-11-26] MEDS: CETIRIZINE HCL 10 MG TABLET PO SCH (08:09)
[2016-11-26] MEDS: MEMANTINE 10 MG TABLET. PO SCH (08:09)
[2016-11-26] MEDS: OXcarbazepine 150 MG TABLET. PO SCH (08:09)
[2016-11-26] MEDS: FAMOTIDINE 20 MG TABLET PO SCH (08:09)
[2016-11-26] MEDS: MAGNESIUM CHLORIDE ER 64 MG TABLET.ER PO SCH (08:09)
[2016-11-26] MEDS: CHOLECALCIFEROL (VITAMIN D3) 1,000 UNIT TABLET PO SCH (08:09)
[2016-11-26] MEDS: DULoxetine HCL 30 MG CAPSULE.DR PO SCH (08:09)
[2016-11-26] MEDS: DONEPEZIL HCL 10 MG TABLET PO SCH (08:09)
[2016-11-26] MEDS: medroxyPROGESTERone 5 MG TABLET PO SCH (08:09)
[2016-11-26] MEDS: QUEtiapine 100 MG TABLET. PO SCH ×2 (08:11→12:27)
--- NOTE | 2016-11-26 08:11 | PN ---
DATE: 11/25/2016 PSYCHIATRIC PROGRESS NOTE This is a late entry of 11/25/2016 covers elements not covered in my initial note. SUBJECTIVE: The patient staffed at treatment team meeting with the entire team morning of 11/25/2016 seen individually evening of 11/25/2016. He has again had some sexually inappropriate behaviors, verbal aggression. We previously postpone the discharge for this very reason and adjusted his psychotropics. Planned discharge for 11/25/2016 was again postponed by a day to address this. He minimizes all of this as I addressed with him. REVIEW OF SYSTEMS: No CV, , pulmonary, eye system symptoms on review. MENTAL STATUS EXAM: Oriented to himself. Insight, judgment, recent and remote memory, attention, concentration, fund of knowledge poor, consistent with his diagnosis mentioned in my initial note. PLAN: Increase 2:00 p.m. Seroquel from 50 to 75 mg and 9:00 a.m. Seroquel from 75 to 100 mg. Continue the rest of the psychotropics as before and transition to senior care on 11/26/2016. MAN Laina GUEVARA MD DR: WALSEKA/rebecca JOB#: [id number] / [id number]
[2016-11-26] MEDS ORDERED: CYANOCOBALAMIN (VITAMIN B-12) 1,000 MCG TABLET. PO SCH (09:00)
[2016-11-26] MEDS ORDERED: CYAN10005 PO (09:30)
[2016-11-26] MEDS: PRENATAL MULTIVITAMIN TABLET. PO SCH (12:26)
[2016-11-26] MEDS ORDERED: QUEtiapine 50 MG TABLET. PO SCH (14:00)
--- NOTE | 2016-11-29 09:35 | DS ---
DATE OF DISCHARGE: 11/26/2016 DICTATION STARTS ABRUPTLY The patient is having outbursts of yelling. Verbally aggressive. Delusional. Having "sexual urges." Behaviors were deemed a potential danger at the jail, had failed outpatient psychiatric interventions with Dr. Wells, psychiatrist, and referred for inpatient stabilization. SIGNIFICANT FINDINGS AND CLINICAL COURSE: Following admission, the patient was seen daily individually by myself from a psychiatric standpoint medical followup with Dr. Petit/Dr Fletcher. The patient was quite confused, withdrawn, sexually inappropriate, and aggressive. Adjustments were made in his psychotropics and he seemed to respond to a combination of Seroquel 75 mg at 2:00 p.m., 100 mg at 0900 and 1700, Aricept 10 mg a day, Ativan 0.5 b.i.d. plus 0.25 at 1300, Namenda 10 b.i.d., Zyprexa p.r.n., Provera 10 mg a day for his sexually aggressive behaviors which were noted on our unit as well. Cymbalta was at 30 mg daily, Trileptal 150 mg at 9:00 a.m., 300 mg at 1400 as a mood stabilizer. Discharge was initially planned for 11/25/2016, but the patient discharge postponed to 11/26/2016. Prior to discharge on 11/26/2016 no CV, , pulmonary, eye, ENT system symptoms on review. MENTAL STATUS EXAM: Oriented to himself. Insight, judgment, recent and remote memory, attention, concentration, fund of knowledge poor, consistent with his diagnosis mentioned in my initial note. FINAL DIAGNOSES: Major neurocognitive disorder, Alzheimer, vascular with depression, delusion, behavioral disturbance; anxiety disorder, unspecified; impulse control disorder, unspecified. Rest of the diagnoses unchanged from admission. DISCHARGE MEDICATIONS: Please refer to the [facility]. DISCHARGE INSTRUCTIONS: Outpatient psychiatric and medical followup at the jail. PRISCILA GUEVARA MD DR: WALESKA/rebecca JOB#: [id number] / [id number]
== END 2016-11-26 14:34 | DRG 884 ==
LOC: ER 15:20 → EEVIPCON 16:57 → GEROPSY 16:57
PROVIDERS: ADMIT Psychiatry & Neurology Psychiatry; ATTEND Psychiatry & Neurology Psychiatry
DX: F01.51 Vascular dementia, unspecified severity, with behavioral disturbance (principal); N39.0 Urinary tract infection, site not specified; F02.81 Dementia in other diseases classified elsewhere, unspecified severity, with behavioral disturbance; G30.9 Alzheimer's disease, unspecified; F41.9 Anxiety disorder, unspecified; F63.9 Impulse disorder, unspecified; E03.9 Hypothyroidism, unspecified; E78.5 Hyperlipidemia, unspecified; R26.9 Unspecified abnormalities of gait and mobility; R29.6 Repeated falls; F22 Delusional disorders; Z66 Do not resuscitate; K21.9 Gastro-esophageal reflux disease without esophagitis; E78.2 Mixed hyperlipidemia; R45.1 Restlessness and agitation; K59.00 Constipation, unspecified; F32.9 Major depressive disorder, single episode, unspecified; Z79.899 Other long term (current) drug therapy; Z87.440 Personal history of urinary (tract) infections; Z88.8 Allergy status to other drugs, medicaments and biological substances
CPT/HCPCS: 36415; 70450; 80053; 80061; 81001; 82306; 82607; 83036; 83540; 83550; 83735; 84436; 84443; 84480; 85008; 85027; 86592; 86593; 87086; 87186; 93005; 97116; 97530; 99285-25